=== PATIENT | female | born 1950 | race Caucasian/White ===

== ENCOUNTER 2019-02-14 05:42 | Outpatient (CLI) | payer MEDICARE ==
[~2019-02-14] VITALS: Ht 157.5 cm; Wt 67.6 kg
[2019-02-14] MEDS ORDERED: ALPR0.5T PO (10:05)
[2019-02-14] MEDS ORDERED: ESTR42.52 VG (10:05)
== END 2019-02-14 10:18 | disposition home or self-care (01) ==
LOC: PREOP 05:42
PROVIDERS: ATTEND Obstetrics & Gynecology
DX: Z01.818 Encounter for other preprocedural examination (principal)

== ENCOUNTER 2019-02-17 06:08 | Day surgery (SDC) | payer MEDICARE ==
[~2019-02-17] VITALS: Ht 157.5 cm; Wt 67.6 kg
[~2019-02-17 06:08] MED LIST: ALPR0.5T PO; ESTR42.52 VG
[2019-02-17] MEDS ORDERED: LACTATED RINGERS 1,000 ML IV ONE (06:10)
[2019-02-17] MEDS ORDERED: metroNIDAZOLE 500MG/100ML IVPB 100 ML IV ONE (06:15)
[2019-02-17] MEDS ORDERED: ceFAZolin INJECTION 1,000 MG in WATER (STERILE) FOR INJECTION 10 ML IV ONE (06:15)
[2019-02-17] MEDS ORDERED: BUPIVACAINE 0.25% 30 ML (SENSORCAINE) VIAL ONE (06:29)
[2019-02-17] MEDS ORDERED: NS (IVPB) 100 ML ONE (06:29)
[2019-02-17] MEDS ORDERED: ESTROGENS CONJ. CREAM 30 GM (PREMARIN) TUBE ONE (06:29)
[2019-02-17] MEDS ORDERED: VASOPRESSIN INJECTION 20 UNIT/ML VIAL ONE (06:29)
[2019-02-17 06:30] VITALS: BP 135/61
[2019-02-17] MEDS ORDERED: ONDANSETRON 4 MG/2 ML (SDV) Z0FRAN ONE ×2 (06:42→06:52)
[2019-02-17] MEDS ORDERED: FAMOTIDINE 20MG/2ML IV (PEPCID) ONE (06:43)
[2019-02-17] MEDS ORDERED: ONDANSETRON 4 MG/2 ML (SDV) Z0FRAN IV ONE (06:45)
[2019-02-17] MEDS ORDERED: FAMOTIDINE 20MG/2ML IV (PEPCID) IV ONE (06:45)
[2019-02-17] MEDS ORDERED: ROCURONIUM 10 MG/ML 5 ML SYRINGE IV ONE (06:52)
[2019-02-17] MEDS ORDERED: fentaNYL INJECTION 100 MCG/2 ML AMP ONE (06:52)
[2019-02-17] MEDS ORDERED: proPOfol 200 MG/20 ML (DIPRIVAN) VIAL IV ONE (06:52)
[2019-02-17] MEDS ORDERED: DEXAMETHASONE 10 MG/ML (DECADRON) 1 ML VIAL ONE (06:52)
[2019-02-17] MEDS ORDERED: LIDOCAINE PF 2% 5 ML (XYLOCAINE) VIAL ONE (06:52)
[2019-02-17] MEDS ORDERED: SEVOFLURANE (ULTANE) 15 ML INHAL SOLN ONE ×9 (06:52→09:15)
[2019-02-17] MEDS ORDERED: MIDAZOLAM 2 MG/2 ML (VERSED) VIAL ONE (06:52)
[2019-02-17 07:01] LABS: BASOPHILS % (AUTO) 0 % (0-10); EOSINOPHILS # (AUTO) 0.1 10^3/uL (0.0-0.3); EOSINOPHILS % (AUTO) 1 % (0-10); HEMATOCRIT 39 % (35-52); LYMPHOCYTES # (AUTO) 1.3 X 10^3 (1.0-4.0); LYMPHOCYTES % (AUTO) 15 % (12-44); MEAN CORPUSCULAR HEMOGLOBIN 32 PG (25-34); MEAN CORPUSCULAR HGB CONC 36 G/DL (32-36); MEAN CORPUSCULAR VOLUME 90 FL (80-99); MEAN PLATELET VOLUME 10.2 FL (7.4-10.4); MONOCYTES # (AUTO) 0.5 X 10^3 (0.0-1.0); MONOCYTES % (AUTO) 6 % (0-12); NEUTROPHILS # (AUTO) 6.9 X 10^3 (1.8-7.8); NEUTROPHILS % (AUTO) 78 % (42-75); PLATELET COUNT 269 10^3/uL (130-400); RED CELL DISTRIBUTION WIDTH 13.2 % (10.0-14.5); WHITE BLOOD COUNT 8.9 10^3/uL (4.3-11.0)
--- NOTE | 2019-02-17 07:08 | History & Physical-Surgical ---
HPO-Surgical History of Present Illness Chief Complaint: Bladder prolapse Diagnosis/Surgical Indication: POP, Cystocele grade 3 with uterine prolapse Procedure: RATLH w/ BSO Date of Surgery: Feb 17, 2019 Weight (Pounds): 149 Weight (Ounces): 0.0 Height (Feet): 5 Height (Inches): 2.00 Allergies and Home Medications Allergies Coded Allergies: amoxicillin (Verified Allergy, Unknown, HIVES, 02/14/19) Home Medications Alprazolam 0.5 Mg Tablet, 0.5 MG PO HS, (Reported) Estradiol 42.5 Gm Cream.appl, 1.25 GM VG TuThSa, (Reported) Patient Home Medication List Home Medication List Reviewed: Yes Past Kvsuhlt-Dczgto-Dyinub Hx Patient Social History Alcohol Use: Denies Use Smoking Status: Never a Smoker Recent Foreign Travel: No Contact w/other who traveled: No Recent Hopitalizations: No Seasonal Allergies Seasonal Allergies: Yes Surgeries Yes Respiratory No Cardiovascular No Neurological No Genitourinary Yes (cystocele) Gastrointestinal No Musculoskeletal No Endocrine History of Endocrine Disorders: No HEENT History of HEENT Disorders: No Cancer No Psychosocial History of Psychiatric Problem: Yes Behavioral Health Disorders: Anxiety Integumentary History of Skin or Integumenta: No Blood Transfusions History of Blood Disorders: No Family Medical History Family Hx: Cardiovascular disease 19 MOTHER Hypertension 19 MOTHER Exam Vital Signs Capillary Refill : Labs Laboratory Tests Test 02/17/19 06:55 Range/Units White Blood Count 8.9 4.3-11.0 10^3/uL Red Blood Count 4.33 L 4.35-5.85 10^6/uL Hemoglobin 14.0 11.5-16.0 G/DL Hematocrit 39 35-52 % Mean Corpuscular Volume 90 80-99 FL Mean Corpuscular Hemoglobin 32 25-34 PG Mean Corpuscular Hemoglobin Concent 36 32-36 G/DL Red Cell Distribution Width 13.2 10.0-14.5 % Platelet Count 269 130-400 10^3/uL Mean Platelet Volume 10.2 7.4-10.4 FL Neutrophils (%) (Auto) 78 H 42-75 % Lymphocytes (%) (Auto) 15 12-44 % Monocytes (%) (Auto) 6 0-12 % Eosinophils (%) (Auto) 1 0-10 % Basophils (%) (Auto) 0 0-10 % Neutrophils # (Auto) 6.9 1.8-7.8 X 10^3 Lymphocytes # (Auto) 1.3 1.0-4.0 X 10^3 Monocytes # (Auto) 0.5 0.0-1.0 X 10^3 Eosinophils # (Auto) 0.1 0.0-0.3 10^3/uL Basophils # (Auto) 0.0 0.0-0.1 10^3/uL General Appearance: Alert, Oriented X3 HEENT: Atraumatic Respiratory: Clear to Auscultation Cardiovascular: Regular Rate Abdominal: Normal Bowel Sounds Assessment/Plan Assessment and Plan P: RATLH w/ BSO anterior colporrhaphy Admission Diagnosis POP w/ Cystocele Admission Status: Observation ALVINO GRIFFITH DO Feb 17, 2019 07:08
[2019-02-17] MEDS ORDERED: LACTATED RINGERS 1,000 ML IV SCH (07:20)
[2019-02-17] MEDS: LACTATED RINGERS 1,000 ML IV PRN ×2 (07:27→11:43)
[2019-02-17] MEDS ORDERED: ANTACID SUSP 30 ML UDC (MYLANTA) PO PRN (07:30)
[2019-02-17] MEDS ORDERED: HYDROcodone/APAP 7.5 MG/325 MG (LORTAB, LORCET PLUS) TABLET PO PRN (07:30)
[2019-02-17] MEDS ORDERED: SIMETHICONE 80 MG (MYLICON) CHEW PO PRN (07:30)
[2019-02-17] MEDS ORDERED: ONDANSETRON 4 MG/2 ML (SDV) Z0FRAN IV PRN (07:30)
[2019-02-17] MEDS ORDERED: CHLORASEPTIC LOZENGE MM PRN (07:30)
[2019-02-17] MEDS ORDERED: KETOROLAC 30 MG/ML VIAL IV PRN (07:30)
[2019-02-17] MEDS ORDERED: ZOLPIDEM 5 MG (AMBIEN) TAB PO PRN (07:30)
[2019-02-17] MEDS ORDERED: GLYCOPYRROLATE 0.2 MG/ML (ROBINUL) 2 ML VIAL ONE (08:43)
[2019-02-17] MEDS ORDERED: NEOSTIGMINE 1 MG/ML 5 ML SYRINGE ONE (08:43)
[2019-02-17] MEDS ORDERED: morphine INJ 10 MG/ML 1ML (SYR OR VIAL) IVP ONE (09:45)
[2019-02-17] MEDS ORDERED: ONDANSETRON 4 MG/2 ML (SDV) Z0FRAN IVP PRN (09:45)
[2019-02-17] MEDS ORDERED: morphine INJ 10 MG/ML 1ML (SYR OR VIAL) ONE (09:55)
--- NOTE | 2019-02-17 10:30 | NUR ---
Pt transferred to room 305 via bed with PACU staff @ side. report received from Agnes Harris RN. care assumed of pt.
[2019-02-17 10:45] VITALS: BP 122/59
--- NOTE | 2019-02-17 10:45 | NUR ---
initial shift assessment completed, see interventions for further. abd lapsites x3 noted, covered with Band-Aids. vaginal packing in place. no bleeding noted on v-pad. SCD's to LE's. POC reviewed with pt and family members. denies pain @ time. will cont to monitor.
[2019-02-17 14:23] VITALS: BP 105/66
--- NOTE | 2019-02-17 14:23 | NUR ---
vs taken. denies c/o's @ time. remains @ side.
--- NOTE | 2019-02-17 15:54 | OPERATIVE REPORT ---
DATE OF SERVICE: 02/17/2019 PREOPERATIVE DIAGNOSES: A 69-year-old female with pelvic organ prolapse and a grade III to grade IV cystocele. POSTOPERATIVE DIAGNOSES: A 69-year-old female with pelvic organ prolapse and a grade III to grade IV cystocele. PROCEDURES: Robotic-assisted total laparoscopic hysterectomy with bilateral salpingo-oophorectomy and colposuspension of the vaginal cuff and anterior colporrhaphy. SURGEON: Markel Griffith DO. DRIER FEEDER: CHAD Cruz. ANESTHESIA: General endotracheal. ESTIMATED BLOOD LOSS: 50. URINE OUTPUT: 130 mL clear at the end of the procedure. FLUIDS: 1500 mL of lactate Ringer solution. FINDINGS: An age appropriate size uterus with normal appearing age appropriate atrophy, ovaries and bilateral normal appearing fallopian tubes with evidence of previous tubal ligation and a grade III to grade IV cystocele protruding from the vaginal introitus. SPECIMEN SENT: Uterus, bilateral fallopian tubes and ovaries. INDICATIONS FOR PROCEDURE: This is a 69-year-old female. The patient was counseled in my office for a bulge in the pelvis as well as possible "bladder falling" from her primary care provider. Upon evaluation in the office, there was noted uterine prolapse and grade III to grade IV cystocele. I discussed with the patient pessary placement versus surgical repair. The patient was opting for a more permanent solution and less maintenance in the surgical repair. Risks of the procedure were discussed with the patient in detail including the risks of bleeding, infection, damage to surrounding structures including, but not limited to bowel, bladder and her kidneys and possible need for reoperation, postoperative expectations, postoperative recovery timeframe, postoperative complications, risk from anesthesia and even . After everything was discussed with the patient in detail, consent was obtained in the preoperative area and the patient was taken to the operating room. OPERATIVE REPORT IN DETAIL: Once in the operating room, general anesthesia was found to be adequate. She was placed in the dorsal lithotomy position and prepped and draped in a normal sterile fashion. A timeout was performed. I then placed a Jett catheter using a sterile technique. A weighted speculum was inserted in to the patient's vagina. A right angle retractor was used to visualize the cervix, which was grasped at 12 o'clock position using a long Allis clamp. I then placed a 0 Vicryl suture to the anterior lip of the cervix and removed the Allis clamp and used this as my retraction point. The uterine cavity depth was then sounded and found to be approximately 6 to 7 cm. I then selected a 5cm width and a 6 cm length Starr uterine manipulator tip and a 2.5 cm colpotomy ring. The Starr uterine manipulator tip was introduced into the uterine cavity, which the balloon was deployed and the colpotomy ring was advanced around the cervix. After this, I was able to appreciate excellent bimanual manipulation on bimanual exam using the manipulator. I then removed all the other instruments from the patient's vagina. I performed the change of gloves and took my attention to the abdomen where infraumbilically I infiltrated this area using 0.25% Marcaine. I made an 8 mm incision and directed a Veress needle through the incision until intraperitoneal placement was confirmed using a saline drop test. I then proceeded with insufflation using CO2 gas with an opening pressure of 5 mmHg as noted. I then proceeded to max pressure of 15 mmHg at which point I withdrew the Veress needle and introduced an 8 mm blunt da Antoni camera trocar. Once this was in place, I was able to confirm intraperitoneal placement using da Antoni laparoscope. No evidence of damage upon entry and grossly normal upper abdominal anatomy was noted. I then had the patient placed in steep Trendelenburg where I was able to visualize all the pelvic anatomy as described in my findings above. I placed two lateral trocars approximately 8 cm lateral to my infraumbilical trocar. These were both 8 mm trocar sites. Once these were in place and the trocars were placed under direct visualization of the laparoscope by bringing the da Antoni robot and docked in the appropriate fashion, I placed the vessel sealer in the left hand and monopolar satya in the right hand and performed the following dissection bilaterally. Starting at the infundibulopelvic ligament, I bipolar cauterized and transected this using the da Antoni vessel sealer. I took this to the attachment point of the round ligament to the pelvic sidewall and bipolar cauterized and transected using the vessel sealer. I then took this down to the lower uterine segment down the broad ligament until the lower uterine segment of the uterus was encountered at which point I the anterior and posterior leaflets. Anterior leaflet was taken down to the anterior vaginal fornix. The posterior leaflet was taken down the posterior vaginal fornix. I then created a colpotomy at 12 o'clock position. Using the monopolar satya, I was able to visualize the colpotomy ring on the Starr uterine manipulator. I also skeletonized the uterine vessels laterally, which I then bipolar cauterized and transected using the vessel sealer. I then took my colpotomy incision circumferentially around the cervix amputating the cervix away from the vagina. The cervix, uterus and bilateral fallopian tubes and ovaries were then removed through the vagina. I then closed the vaginal cuff and the lateral vaginal apices colposuspending into the uterosacral ligaments using 2-0 Vicryl suture in a [id number]-picbo fashion. I then closed the remainder of the vaginal cuff using 2-0 V-Loc in a running fashion after which there was no active bleeding noted from any of my dissection planes. I then undocked the [employer] Antoni robot and proceeded with the remainder of the case laparoscopically. I copiously irrigated the pelvis once again using normal saline. There was no active bleeding noted from any of my dissection planes. I placed Surgiflo over all my planes of dissection to ensure excellent postoperative hemostasis. I then removed the lateral trocars under direct visualization of laparoscope. The infraumbilical trocar was left in place. I introduced 10 mL of 0.25% Marcaine for postoperative peritoneal pain management. I then released insufflation from this trocar site as well and removed this trocar. The skin was then reapproximated using a 4-0 Monocryl interrupted subcuticular stitches. Dermabond was applied to the incision and Band-Aids were placed over these. I then took my attention back to the pelvis where a weighted speculum was inserted in to the patient's vagina where I was able to visualize the continuing defect of a grade I to grade II cystocele, which still needs to be repaired. I infiltrated the submucosa of the vaginal wall of the anterior defect using vasopressin concentration of 20 units in a 100 mL of normal saline both for hydrodissection and for hemostasis during my dissection. Once all extents of the defect were infiltrated and there was blanching of the mucosa, I made a transverse incision at the bladder neck using the knife and undermined this incision using Metzenbaum scissors down the midline of the defect. I then incised the midline of the defect down this undermined incision all the way to the proximal margin of the defect at the vaginal cuff. I then bluntly dissected the vesicovaginal fascia off of the submucosa on both sides of my incision. I then in a plicating manner used 0 Vicryl suture to plicate the vesicovaginal fascia reducing the cystocele defect in an interrupted fashion, after which I trimmed the excess vaginal mucosa and reapproximated the vaginal mucosa using 3-0 Vicryl suture in a running locked fashion, after which there was no active bleeding noted from any of my dissection planes. I then packed the vagina using Premarin soaked vaginal packing and removed the weighted speculum. The Jett catheter was left in place. The patient tolerated the procedure well and sent to the recovery area in stable condition. Lap and sponge counts were correct at the end of the procedure. Instrument counts correct as well. Two grams of Ancef and 500 mg of Flagyl were given preoperatively for infection prophylaxis. Job ID: [id number] DocumentID: [id number] Dictated Date: 02/17/2019 10:34:11 Shallot Packer Date: 02/17/2019 15:53:39 Dictated By: MARKEL GRIFFITH DO
--- NOTE | 2019-02-17 16:35 | NUR ---
ambulated in hallway with stand by assist x1. tolerated well. assisted back to bed.
--- NOTE | 2019-02-17 16:45 | NUR ---
regular diet served.
--- NOTE | 2019-02-17 16:59 | NUR ---
called. update given on status. no new orders received.
--- NOTE | 2019-02-17 17:02 | Discharge Inst-Women's Service ---
Discharge Inst-Women's Serv Depart Medication/Instructions New, Converted or Re-Newed RX: RX on Chart Consults/Follow Up Additional Follow Up: Yes Orders/Referrals Dr. Gee in 7-10 days and in 8 weeks Activity Activity: Activity as Tolerated Driving Instructions: No Driving for 1 Week NO SMOKING: NO SMOKING Nothing Inside Vagina: No Douching, No Clare, No Tampons Diet Discharge Diet: No Restrictions Symptoms to Report to : Bleeding Excessive, Pain Increased, Fever Over 101 Degrees F, Vaginal Bleeding Increase, Questions/Concerns For Any Problems or Questions: Contact Your Physician Skin/Wound Care Infection Signs and Symptoms: Increased Redness, Foul Odor of Wound, Increased Drainage, Skin Itchy or Has a Rash, Increased Swelling, Temperature Above 101 F Operative Area Clean and Dry: Keep Incision Clean/Dry Stitches/Andreas/Dermabond: Dermabond, Care of Stitches Bathing Instructions: ALVINO Nelson DO Feb 17, 2019 17:02
--- NOTE | 2019-02-17 19:49 | NUR ---
Report given to INDRA Ferrell.
[2019-02-17] MEDS: DOCUSATE SODIUM 100 MG (COLACE) CAP PO PRN (20:04)
[2019-02-17 20:08] VITALS: BP 102/51
[2019-02-17 23:00] VITALS: BP 90/56
[2019-02-18] MEDS ORDERED: IBUPROFEN 600 MG (MOTRIN) TAB PO PRN
[2019-02-18 04:00] VITALS: BP 94/61
--- NOTE | 2019-02-18 07:26 | NUR ---
Report to burak gonzalez
[2019-02-18 08:00] VITALS: BP 115/55
--- NOTE | 2019-02-18 08:00 | NUR ---
A.M. ASSESSMENT COMPLETED.UP TO VOID. VOIDED 125 CC CLEAR YELLOW URINE.OUT TO AMBULATE IN THE HALLS. MOVES WELL.
--- NOTE | 2019-02-18 09:30 | NUR ---
VOIDED 300 CC CLEAR YELLOW URINE. DOING WELL. ANXIOUS TO GO HOME.
[2019-02-18] MEDS: DOCUSATE SODIUM 100 MG (COLACE) CAP PO PRN (09:44)
--- NOTE | 2019-02-18 09:49 | NUR ---
DR. GRIFFITH IN TO SEE PT. PLAN FOR DISCHARGE.
--- NOTE | 2019-02-18 10:00 | NUR ---
SALINE LOCK D/C'ED WITH TIP INTACT. SITE CLEAR. PREPARING FOR DISCHARGE.
[2019-02-18] MEDS ORDERED: SIME80TA16 PO (10:03)
[2019-02-18] MEDS ORDERED: DOCU100C37 PO (10:03)
[2019-02-18] MEDS ORDERED: IBUP-844 PO (10:03)
[2019-02-18] MEDS ORDERED: HYDR-34 PO (10:03)
--- NOTE | 2019-02-18 10:10 | Anesthesia-General Post-Op ---
General Patient Condition Mental Status/LOC: Same as Preop Cardiovascular: Satisfactory Nausea/Vomiting: Absent Respiratory: Satisfactory Pain: Controlled Complications: Absent Post Op Complications Complications None Follow Up Care/Instructions Patient Instructions None needed. Anesthesia/Patient Condition Patient Condition Patient is doing well, no complaints, stable vital signs, no apparent adverse anesthesia problems. No complications reported per nursing. ROB DUMONT CRNA Feb 18, 2019 10:10
[2019-02-18 10:30] VITALS: BP 115/55
--- NOTE | 2019-02-18 10:30 | NUR ---
DISCHARGE INSTRUCTIONS REVIEWED WITH COPY TO PT. STATES UNDERSTANDING OF ALL INSTRUCTIONS AND NEED TO F/U SCHEDULED AND NEEDED. DISMISSED AMB FROM [facility] TO FAMILY CAR IN STABLE CONDITION ACC BY LANA BURRELL.
[2019-02-18] MEDS ORDERED: FLU QUADRIvalent (5+ YOA) 2018-2019 (AFLURIA) 0.5 ML IM ONE (15:15)
== END 2019-02-18 10:30 | disposition home or self-care (01) ==
LOC: SDC 06:08 → WS 10:30 → SDC 02-18 10:30
PROVIDERS: ATTEND Obstetrics & Gynecology
DX: N81.3 Complete uterovaginal prolapse (principal); N80.0 Endometriosis of uterus; D25.1 Intramural leiomyoma of uterus; N83.201 Unspecified ovarian cyst, right side; N83.202 Unspecified ovarian cyst, left side; F41.9 Anxiety disorder, unspecified; Z79.899 Other long term (current) drug therapy
CPT/HCPCS: 36415; 85025; 86850; 86900; 86901; 87081; 88307

== ENCOUNTER 2022-03-09 14:13 | Inpatient (IN) | payer MEDICARE ==
[~2022-03-09] VITALS: Ht 160 cm; Wt 68.0 kg
[~2022-03-09 14:13] MED LIST changes: +DOCU100C37 PO; +HYDR-34 PO; +IBUP-844 PO; +SIME80TA16 PO
--- NOTE | 2022-03-09 14:35 | ED Lower Extremity ---
General Chief Complaint: Trauma-Non Activation Stated Complaint: FALL; LT HIP PAIN Nursing Triage Note: Patient presents to the ED via EMS with c/o left hip pain. Reports her feet got tangled in some cords and she fell onto her left him. EMS reported external rotation and shortening of left leg. Source: patient Exam Limitations: no limitations History of Present Illness Date Seen by Provider: Mar 09, 2022 Time Seen by Provider: 14:15 Initial Comments Patient is 72-year-old female who presents with accidental fall from standing and left hip pain. Patient did not hit her head. Denies loss of consciousness, headache or neck pain. She is not on anticoagulation therapy. Patient is unable to weight-bear. No other symptoms or complaints. Location Injury Occurred: Home Onset: just prior to arrival Severity: moderate Method of Injury: other Modifying Factors: Improves With Other Allergies and Home Medications Allergies Coded Allergies: amoxicillin (Verified Allergy, Unknown, HIVES, 02/14/19) Patient Home Medication List Home Medication List Reviewed: Yes Alprazolam (Xanax) 0.5 Mg Tablet, 0.5 MG PO HS, (Reported) Entered as Reported by: FORREST PALACIOS on 02/14/19 1005 Docusate Sodium (Docusate Sodium) 100 Mg Capsule, 100 MG PO BID PRN for CONSTIPATION-1ST LINE Prescribed by: ALVINO GRIFFITH on 02/18/19 1003 Estradiol (Estrace Cream) 42.5 Gm Cream.appl, 1.25 GM VG TuThSa, (Reported) Entered as Reported by: FORREST PALACIOS on 02/14/19 1005 Hydrocodone Bit/Acetaminophen (Lortab 7.5 Mg Tablet) 1 Ea Tablet, 2 EA PO Q6H PRN for Pain-See Instructions Prescribed by: ALVINO GRIFFITH on 02/18/19 1003 Ibuprofen (Ibu) 600 Mg Tablet, 600 MG PO Q6H PRN for PAIN-MODERATE Prescribed by: ALVINO GRIFFITH on 02/18/19 1003 Simethicone (Simethicone) 80 Mg Tab.chew, 40 MG PO TID PRN for INDIGESTION 2ND LINE Prescribed by: ALVINO GRIFFITH on 02/18/19 1003 Review of Systems Constitutional: see HPI EENTM: see HPI Respiratory: see HPI Cardiovascular: see HPI Genitourinary: see HPI Musculoskeletal: see HPI Skin: see HPI Psychiatric/Neurological: See HPI All Other Systems Reviewed Negative Unless Noted: Yes Past Prwadyq-Wgylni-Xjlcak Hx Patient Social History Tobacco Use?: No Substance use?: No Alcohol Use?: No Pt feels they are or have been: No Immunizations Up To Date Influenza Vaccine Up-to-Date: No; Not Current First/Initial COVID19 Vaccinat: Yes Second COVID19 Vaccination Ajay: Yes COVID19 Vaccine Rehabilitation Liaison: Moderna Seasonal Allergies Seasonal Allergies: Yes Past Medical History Surgery/Hospitalization HX: Anxiety; Depression; Cholecysectomy; Hysterectomy; bladder tie up. Surgeries: Yes Respiratory: No Cardiac: No Neurological: No Genitourinary: Yes (cystocele) Gastrointestinal: No Musculoskeletal: No Endocrine: No HEENT: No Cancer: No Psychosocial: Yes Anxiety Integumentary: No Blood Disorders: No Family Medical History Cardiovascular disease 19 MOTHER Hypertension 19 MOTHER Physical Exam Vital Signs Vital Signs - First Documented 03/09/22 14:15 Temp 36.4 Pulse 96 Resp 18 B/P (MAP) 117/50 (72) Pulse Ox 96 O2 Delivery Room Air Capillary Refill : Less Than 3 Seconds Height, Weight, BMI Height: 5'2.00" Weight: 149lbs. 0.0oz. 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, no motor/sensory deficits, alert, normal mood/affect, oriented x 3 Skin: normal color Lymphatic: no adenopathy Progress/Results/Core Measures Results/Orders Lab Results Laboratory Tests Test 03/09/22 15:00 03/09/22 15:25 Range/Units White Blood Count 20.2 H 4.3-11.0 10^3/uL Red Blood Count 4.21 3.80-5.11 10^6/uL Hemoglobin 13.5 11.5-16.0 g/dL Hematocrit 38 35-52 % Mean Corpuscular Volume 90 80-99 fL Mean Corpuscular Hemoglobin 32 25-34 pg Mean Corpuscular Hemoglobin Concent 36 32-36 g/dL Red Cell Distribution Width 13.1 10.0-14.5 % Platelet Count 174 130-400 10^3/uL Mean Platelet Volume 10.9 9.0-12.2 fL Immature Granulocyte % (Auto) 1 % Neutrophils (%) (Auto) 87 H 42-75 % Lymphocytes (%) (Auto) 7 L 12-44 % Monocytes (%) (Auto) 4 0-12 % Eosinophils (%) (Auto) 0 0-10 % Basophils (%) (Auto) 0 0-10 % Neutrophils # (Auto) 17.6 H 1.8-7.8 10^3/uL Lymphocytes # (Auto) 1.4 1.0-4.0 10^3/uL Monocytes # (Auto) 0.9 0.0-1.0 10^3/uL Eosinophils # (Auto) 0.1 0.0-0.3 10^3/uL Basophils # (Auto) 0.1 0.0-0.1 10^3/uL Immature Granulocyte # (Auto) 0.2 H 0.0-0.1 10^3/uL My Orders Orders - NADEGE YAN DO Pelvis With Left Hip 2-3 View (03/09/22 14:18) Chest 1 View Ap/Pa Only (03/09/22 14:18) Cbc With Automated Diff (03/09/22 14:18) Comprehensive Metabolic Panel (03/09/22 14:18) Ua Culture If Indicated (03/09/22 14:18) Manual Differential (03/09/22 15:00) Morphine Injection (Morphine Injection (03/09/22 15:31) Ondansetron Injection (Zofran Injectio (03/09/22 15:45) Vital Signs/I&O 03/09/22 14:15 Temp 36.4 Pulse 96 Resp 18 B/P (MAP) 117/50 (72) Pulse Ox 96 O2 Delivery Room Air Blood Pressure Mean: 72 Departure Communication (Admissions) Left hip/pelvis: Left subcapital fracture Chest x-ray: No acute pulmonary disease Impression Primary Impression: Closed left hip fracture Disposition: ADMITTED INPATIENT Condition: Stable Admissions Decision to Admit Reason: Admit from ER (General) (Dr. Finch) Decision to Admit/Date: Mar 09, 2022 Time/Decision to Admit Time: 15:33 Transfer Method of Transfer: EMS Departure-Patient Inst. Referrals: MALENA MCDANIEL MD (PCP) Primary Care Physician NADEGE YAN DO Mar 09, 2022 14:35
--- NOTE | 2022-03-09 14:54 | Diagnostic Imaging Report ---
EXAM: PELVIS WITH LEFT HIP 2-3 VIEW INDICATION: Left hip pain. Trauma. Fall. COMPARISON: None. FINDINGS: Angulated displaced left subcapital hip fracture. No other fracture is identified. Soft tissue shadows are unremarkable. IMPRESSION: Subcapital left hip fracture. Dictated by: Dictated on workstation # [id number]
--- NOTE | 2022-03-09 14:54 | Diagnostic Imaging Report ---
EXAM: CHEST 1 VIEW AP/PA ONLY INDICATION: Trauma. Fall. Chest pain. COMPARISON: None. FINDINGS: Normal heart size and central pulmonary vascularity. No focal pulmonary opacity. No pleural effusion or pneumothorax. No acute osseous findings. Metallic irregular density overlying the upper right lung field laterally measures 0.5 cm. IMPRESSION: 1. No acute cardiopulmonary findings. 2. Indeterminate metallic subcentimeter radiopaque density overlying the upper right lung field laterally may be external to the patient. Recommend correlation with clinical history and findings. Dictated by: Dictated on workstation # [id number]
[2022-03-09 15:00] LABS: BASOPHILS # (AUTO) 0.1 10^3/uL (0.0-0.1); BASOPHILS % (AUTO) 0 % (0-10); EOSINOPHILS # (AUTO) 0.1 10^3/uL (0.0-0.3); EOSINOPHILS % (AUTO) 0 % (0-10); HEMATOCRIT 38 % (35-52); HEMOGLOBIN 13.5 g/dL (11.5-16.0); LYMPHOCYTES # (AUTO) 1.4 10^3/uL (1.0-4.0); LYMPHOCYTES % (AUTO) 7 % (12-44); MEAN CORPUSCULAR HEMOGLOBIN 32 pg (25-34); MEAN CORPUSCULAR HGB CONC 36 g/dL (32-36); MEAN CORPUSCULAR VOLUME 90 fL (80-99); MEAN PLATELET VOLUME 10.9 fL (9.0-12.2); MONOCYTES # (AUTO) 0.9 10^3/uL (0.0-1.0); MONOCYTES % (AUTO) 4 % (0-12); NEUTROPHILS # (AUTO) 17.6 10^3/uL (1.8-7.8); NEUTROPHILS % (AUTO) 87 % (42-75); PLATELET COUNT 174 10^3/uL (130-400); WHITE BLOOD COUNT 20.2 10^3/uL (4.3-11.0)
[2022-03-09] MEDS ORDERED: morphine INJ 10 MG/ML 1ML (SYR OR VIAL) IVP STA (15:31)
[2022-03-09 15:41] LABS: LYMPHOCYTES % (MANUAL) 7 %; MONOCYTES % (MANUAL) 3 %; NEUTROPHILS % (MANUAL) 90 %
[2022-03-09] MEDS ORDERED: ONDANSETRON 4 MG/2 ML (SDV) Z0FRAN IVP ONE (15:45)
[2022-03-09 15:51] LABS: ALBUMIN 3.7 GM/DL (3.2-4.5); BILIRUBIN,TOTAL 0.4 MG/DL (0.1-1.0); CALCIUM 7.5 MG/DL (8.5-10.1); CREATININE SERUM 0.47 MG/DL (0.60-1.30); POTASSIUM 2.9 MMOL/L (3.6-5.0); TOTAL PROTEIN 5.7 GM/DL (6.4-8.2)
[2022-03-09 15:55] LABS: BILIRUBIN,URINE NEGATIVE (NEGATIVE); CLARITY,URINE CLEAR; COLOR,URINE YELLOW; GLUCOSE, URINE (UA) NEGATIVE (NEGATIVE); KETONES,URINE NEGATIVE (NEGATIVE); LEUKOCYTE ESTERASE ,URINE NEGATIVE (NEGATIVE); NITRITE,URINE NEGATIVE (NEGATIVE); PROTEIN,URINE NEGATIVE (NEGATIVE)
[2022-03-09 16:03] LABS: BACTERIA,URINE TRACE /HPF; RED BLOOD CELL CASTS,URINE 0-2 /LPF
[2022-03-09] MEDS ORDERED: KCL 20 MEQ TAB (K-DUR) PO ONE ×2 (16:15→21:15)
[2022-03-09 17:12] VITALS: BP 127/68
[2022-03-09] MEDS ORDERED: polyethylene glycoL POWDER 17 GM (MIRALAX) PACK PO PRN (17:45)
[2022-03-09] MEDS ORDERED: ONDANSETRON 4 MG (ZOFRAN) ORAL DISSOLVE TAB PO PRN (17:45)
[2022-03-09] MEDS ORDERED: ONDANSETRON 4 MG/2 ML (SDV) Z0FRAN IV PRN (17:45)
[2022-03-09] MEDS ORDERED: ANTACID SUSP 30 ML UDC (MYLANTA) PO PRN (17:45)
[2022-03-09] MEDS ORDERED: ACETAMINOPHEN 325 MG TABLET PO PRN (17:45)
[2022-03-09] MEDS ORDERED: MELATONIN 3 MG TABLET PO PRN (17:45)
[2022-03-09] MEDS: LACTATED RINGERS 1,000 ML IV SCH (17:50)
[2022-03-09 18:09] VITALS: BP 117/50
[2022-03-09] MEDS ORDERED: RT-ALBUTEROL SULF 2.5 MG/3 ML PRE-MIX VIAL INH PRN (18:15)
[2022-03-09] MEDS ORDERED: D5 1/2 NS 1000 ML IV SOLUTION 1,000 ML IV SCH (18:15)
[2022-03-09] MEDS ORDERED: morphine INJ 4 MG/ML 1 ML (VIAL/SYRINGE) IV PRN (18:15)
[2022-03-09 18:16] LABS: POTASSIUM 3.9 MMOL/L (3.6-5.0)
[2022-03-09 18:17] LABS: CALCIUM 9.1 MG/DL (8.5-10.1)
[2022-03-09 18:22] LABS: CREATININE SERUM 0.67 MG/DL (0.60-1.30)
[2022-03-09 18:24] LABS: MAGNESIUM 1.8 MG/DL (1.6-2.4)
--- NOTE | 2022-03-09 19:08 | Progress Note ---
Standard Progress Note Progress Notes/Assess & Plan Date Seen by a Provider: Mar 09, 2022 Time Seen by a Provider: 19:07 Progress/Assessment & Plan consult dictated patient seen and examined plan for left hip bipolar replacement tomorrow ALVINO NORRIS MD Mar 09, 2022 19:08
--- NOTE | 2022-03-09 19:46 | History & Physical-Hospitalist ---
History of Present Illness HPI/Chief Complaint Livia Chandra is a 72 year old female with PMH anxiety, insomnia, who presented after a ground level fall. She tripped over some cords and fell on her left side. She did not hit her head or lose consciousness. She was in her normal state of health prior to the fall. She denies fevers and chills. She denies chest pain and palpitaitons. She denies shortness of breath and cough. She denies abdominal pain, nausea, vomiting, and diarrhea. She denies dysuria. She is a non-smoker. Source: patient Exam Limitations: no limitations Date Seen 03/09/22 Time Seen by a Provider: 18:00 Attending Physician Jordana Herr MD PCP Breana Cruz MD Referring Physician Date of Admission Mar 09, 2022 at 17:10 Home Medications & Allergies Home Medications Reviewed patient Home Medication Reconciliation performed by pharmacy medication reconciliations x ray technician and/or nursing. Patients Allergies have been reviewed. Allergies Allergies Coded Allergies amoxicillin (Verified Allergy, Unknown, HIVES, 02/14/19) Past Wleggnq-Ocklpf-Uxyuvw Hx Patient Social History Tobacco Use?: No Smoking Status: Never a Smoker Use of E-Cig and/or Vaping dev: No Substance use?: No Alcohol Use?: No Pt feels they are or have been: No Immunizations Up To Date First/Initial COVID19 Vaccinat: Yes Second COVID19 Vaccination Ajay: Yes Tetanus Booster (TDap): Unknown Seasonal Allergies Seasonal Allergies: Yes Current Status status: No status: No Advance Directives: No Primary Language: Turkish Preferred Spoken Language: Turkish Is interpretation needed?: No Implanted or Applied Medical D: None Past Medical History Anxiety Blood Disorders: No Family Medical History Cardiovascular disease 19 MOTHER Hypertension 19 MOTHER Review of Systems Constitutional: no symptoms reported EENTM: no symptoms reported Respiratory: no symptoms reported Cardiovascular: no symptoms reported Gastrointestinal: no symptoms reported Genitourinary: no symptoms reported Musculoskeletal: no symptoms reported Skin: no symptoms reported Psychiatric/Neurological: No Symptoms Reported Physical Exam Physical Exam Vital Signs Vital Signs - First Documented 03/09/22 03/09/22 03/09/22 14:15 17:12 18:09 Temp 36.4 Pulse 96 Resp 18 B/P (MAP) 117/50 (72) Pulse Ox 96 O2 Delivery Room Air O2 Flow Rate 2.00 FiO2 21 Capillary Refill : Less Than 3 Seconds Height, Weight, BMI Height: 5'2.00" Weight: 149lbs. 0.0oz. 67.429606ac; 26.71 BMI Method: General Appearance: No Apparent Distress, WD/WN HEENT: PERRL/EOMI, Pharynx Normal Neck: Normal Inspection, Supple Respiratory: Lungs Clear, Normal Breath Sounds, No Respiratory Distress Cardiovascular: Regular Rate, Rhythm, No Edema, No Murmur Gastrointestinal: Normal Bowel Sounds, Non Tender, Soft Extremity: Normal Inspection, Non Tender, No Pedal Edema Neurologic/Psychiatric: Alert, Oriented x3, No Motor/Sensory Deficits, Normal Mood/Affect Skin: Normal Color, Warm/Dry Results Results/Procedures Labs Laboratory Tests 03/09/22 15:00 03/09/22 15:25 03/09/22 18:00 Patient resulted labs reviewed. Imaging: Reviewed Imaging Report Assessment/Plan Admission Diagnosis Closed left hip fracture Admission Status: Inpatient Order (span 2 midnights) Reason for Inpatient Admission: Hip surgery Assessment and Plan Closed left hip fracture XR showed left subcapital hip fracture Orthopedic surgery consulted Dr. Chisholm planning for surgical repair tomorrow NPO at midnight Pain regimen Bowel regimen Incentive spriometry PT/OT after surgery IRF evaluation Prophylactic Lovenox Anxiety Insomnia Continue Klonopiin Hypokalemia Monitor and correct as needed DVT prophylaxis: Lovenox Diagnosis/Problems Diagnosis/Problems (1) Closed left hip fracture Status: Acute Qualifiers: Encounter type: initial encounter Qualified Codes: S72.002A - Fracture of unspecified part of neck of left femur, initial encounter for closed fracture JORDANA HERR MD Mar 09, 2022 19:46
[2022-03-09 20:02] VITALS: BP 133/73
[2022-03-09] MEDS ORDERED: ENOXAPARIN 40 MG/0.4 ML (LOVENOX) SYR SC SCH (21:00)
[2022-03-09] MEDS: SENNA W/DOCUSATE (SENOKOT S) TABLET PO SCH (21:00)
[2022-03-09] MEDS: DOCUSATE SODIUM 100 MG (COLACE) CAP PO SCH (21:00)
[2022-03-09] MEDS: clonazePAM 0.5 MG (KlonoPIN) TAB PO SCH (21:16)
--- NOTE | 2022-03-09 22:41 | CONSULTATION REPORT ---
DATE OF SERVICE: 03/09/2022 INPATIENT CONSULTATION REASON FOR CONSULTATION: Left femoral neck fracture. HISTORY OF PRESENT ILLNESS: The patient is a 72-year-old female, who fell after getting tangled up on her computer cords while standing from her desk. She denies antecedent pain. She reports no loss of consciousness. She reports no dizziness or chest pain. She reports she simply clumsily got caught up in the wires. She was found to have a displaced femoral neck fracture at an outside facility and referred here for ultimate treatment. ALLERGIES: AMOXICILLIN, WHICH CAUSES HIVES. MEDICATIONS: Alprazolam, stool softener, estradiol, calcium, vitamin D. PHYSICAL EXAMINATION: ORTHOPEDICS: The left lower extremity is slightly shortened and externally rotated. She has intact dorsiflexion and plantarflexion of the toes and ankle. Sensation is symmetric to light touch and intact. She has 2+ equal dorsalis pedis pulses. RADIOGRAPHS: Reveal a subcapital left femoral neck fracture with 100% displacement with shortening. IMPRESSION: Displaced left subcapital femoral neck fracture. PLAN: Left hip bipolar replacement. I discussed risks, benefits, options, ramifications and recovery with the patient. She understands and wishes to proceed. Job ID: [id number] DocumentID: [id number] Dictated Date: 03/09/2022 19:06:56 [facility] Director Date: 03/09/2022 22:40:05 Dictated By: ALVINO NORRIS MD
[2022-03-10] VITALS (14 sets, daily range): BP systolic 93–121; BP diastolic 46–77
[2022-03-10] MEDS: LACTATED RINGERS 1,000 ML IV SCH ×3 (05:11→20:28)
[2022-03-10] MEDS: KCL 20 MEQ TAB (K-DUR) PO SCH (06:00)
[2022-03-10] MEDS: MAGNESIUM 1 GM/100 ML IVPB 100 ML IV SCH (06:00)
[2022-03-10] MEDS: POTASSIUM CL 10MEQ/50ML IVPB 50 ML IV SCH (06:00)
[2022-03-10 06:04] LABS: BASOPHILS % (AUTO) 0 % (0-10); EOSINOPHILS # (AUTO) 0.2 10^3/uL (0.0-0.3); EOSINOPHILS % (AUTO) 2 % (0-10); HEMATOCRIT 37 % (35-52); HEMOGLOBIN 12.4 g/dL (11.5-16.0); LYMPHOCYTES # (AUTO) 1.3 10^3/uL (1.0-4.0); LYMPHOCYTES % (AUTO) 13 % (12-44); MEAN CORPUSCULAR HEMOGLOBIN 32 pg (25-34); MEAN CORPUSCULAR HGB CONC 33 g/dL (32-36); MEAN CORPUSCULAR VOLUME 95 fL (80-99); MEAN PLATELET VOLUME 10.5 fL (9.0-12.2); MONOCYTES # (AUTO) 0.6 10^3/uL (0.0-1.0); MONOCYTES % (AUTO) 6 % (0-12); NEUTROPHILS # (AUTO) 7.6 10^3/uL (1.8-7.8); NEUTROPHILS % (AUTO) 78 % (42-75); PLATELET COUNT 186 10^3/uL (130-400); WHITE BLOOD COUNT 9.8 10^3/uL (4.3-11.0)
[2022-03-10 06:14] LABS: POTASSIUM 4.3 MMOL/L (3.6-5.0)
[2022-03-10 06:15] LABS: CALCIUM 8.7 MG/DL (8.5-10.1)
[2022-03-10 06:20] LABS: CREATININE SERUM 0.68 MG/DL (0.60-1.30)
[2022-03-10 06:22] LABS: MAGNESIUM 1.8 MG/DL (1.6-2.4)
[2022-03-10] MEDS: DOCUSATE SODIUM 100 MG (COLACE) CAP PO SCH ×2 (07:20→20:29)
[2022-03-10] MEDS: SENNA W/DOCUSATE (SENOKOT S) TABLET PO SCH (07:21)
--- NOTE | 2022-03-10 08:18 | Occ Therapy Progress Note ---
Therapy Progress Note OT orders received and chart was reviewed. Pt presents to hospital following a fall resulting in a L hip fx. Ortho consulted and recommends Left hip bipolar replacement. OT to eval post op day 1. Jes Toledo OT Mar 10, 2022 08:18
[2022-03-10] MEDS ORDERED: LACTATED RINGERS 1,000 ML IV PRN (09:30)
[2022-03-10] MEDS ORDERED: CLON0.5T4 PO (09:49)
[2022-03-10] MEDS ORDERED: L.AC1CAP6 PO (09:49)
[2022-03-10] MEDS ORDERED: CHOL500050 PO (09:53)
--- NOTE | 2022-03-10 09:54 | Physical Therapy Progress Note ---
Therapy Progress Note Patient to have surgery on this date. PT will evaluate patient 03/11/22. MARCELL MARINO PT Mar 10, 2022 09:54
[2022-03-10] MEDS ORDERED: BUPIVACAINE 0.5% 30 ML (SENSORCAINE) VIAL ONE (10:05)
[2022-03-10] MEDS ORDERED: FUROSEMIDE 40 MG/4 ML INJ (LASIX) ONE (10:31)
[2022-03-10] MEDS ORDERED: ceFAZolin 2 GM IV Premixed 50 ML ONE (10:38)
[2022-03-10] MEDS ORDERED: proPOfol 200 MG/20 ML (DIPRIVAN) VIAL IV ONE (10:51)
[2022-03-10] MEDS ORDERED: ROCURONIUM 10 MG/ML 5 ML SYRINGE IV ONE (10:51)
[2022-03-10] MEDS ORDERED: ONDANSETRON 4 MG/2 ML (SDV) Z0FRAN ONE (10:51)
[2022-03-10] MEDS ORDERED: LIDOCAINE PF 2% 5 ML (XYLOCAINE) VIAL ONE (10:51)
[2022-03-10] MEDS ORDERED: fentaNYL INJ 100 MCG/2 ML AMP ONE (10:51)
[2022-03-10] MEDS ORDERED: morphine INJ 4 MG/ML 1 ML (VIAL/SYRINGE) IVP PRN (11:15)
[2022-03-10] MEDS ORDERED: ONDANSETRON 4 MG/2 ML (SDV) Z0FRAN IVP PRN ×2 (11:15→13:00)
[2022-03-10] MEDS ORDERED: TEMAZEPAM 15 MG (RESTORIL) CAP PO PRN (11:15)
[2022-03-10] MEDS ORDERED: ceFAZolin 2 GM IV Premixed 50 ML IV ONE (11:15)
[2022-03-10] MEDS ORDERED: oxyCODONE/APAP 5/325MG (PERCOCET 5) TABLET PO PRN (11:15)
[2022-03-10] MEDS ORDERED: diphenhydrAMINE 50 MG/ML INJ (BENADRYL) IVP PRN (11:15)
[2022-03-10] MEDS ORDERED: ACETAMINOPHEN 325 MG TABLET PO PRN (11:15)
--- NOTE | 2022-03-10 11:16 | Progress Note-Pre Operative ---
Pre-Operative Progress Note H&P Reviewed The H&P was reviewed, patient examined and no changes noted. Date Seen by Provider: Mar 10, 2022 Time Seen by Provider: 11:06 Date H&P Reviewed: Mar 10, 2022 Time H&P Reviewed: 07:11 Pre-Operative Diagnosis: closed, displaced left neck of femur fracture ALVINO NORRIS MD Mar 10, 2022 11:16
--- NOTE | 2022-03-10 11:16 | Progress Note-Post Operative ---
Post-Operative Progess Note Surgeon (s)/Wind Turbine Design Engineer (s) Surgeon ALVINO NORRIS MD Wind Turbine Design Engineer: Dl Griffin Pre-Operative Diagnosis closed, displaced left neck of femur fracture Post-Operative Diagnosis closed, displaced left neck of femur fracture Procedure & Operative Findings Date of Procedure 03/10/22 Procedure Performed/Findings left hip bipolar replacement Anesthesia Type GETA Estimated Blood Loss Estimated blood loss (mL): 150 ml Specimens/Packing Specimens Removed Femoral head Packing: none ALVINO NORRIS MD Mar 10, 2022 11:16
--- NOTE | 2022-03-10 11:33 | Progress Note - Hospitalist ---
Subjective HPI/CC On Admission Date Seen by Provider: Mar 10, 2022 Time Seen by Provider: 10:05 Livia Chandra is a 72 year old female with PMH anxiety, insomnia, who presented after a ground level fall. She tripped over some cords and fell on her left side. She did not hit her head or lose consciousness. She was in her normal state of health prior to the fall. She denies fevers and chills. She denies chest pain and palpitaitons. She denies shortness of breath and cough. She denies abdominal pain, nausea, vomiting, and diarrhea. She denies dysuria. She is a non-smoker. Subjective/Events-last exam Pt reports persistent pain in hip. Pain medicine helps. Hopeful for surgery soon. Discussed plan for therapy following surgery. Objective Exam Vital Signs Vital Signs Date Time Temp Pulse Resp B/P (MAP) Pulse Ox O2 Delivery O2 Flow Rate FiO2 03/10/22 07:43 37.1 101 17 108/64 (79) 98 Nasal Cannula 2.00 03/09/22 18:09 21 Capillary Refill : Less Than 3 Seconds General Appearance: No Apparent Distress, WD/WN Respiratory: Lungs Clear, No Respiratory Distress Cardiovascular: Regular Rate, Rhythm, No Murmur Neurologic/Psychiatric: Alert, Oriented x3 Results/Procedures Lab Laboratory Tests 03/09/22 15:00 03/09/22 15:25 03/09/22 18:00 03/10/22 05:52 Patient resulted labs reviewed. Imaging: Reviewed Imaging Report Assessment/Plan Assessment and Plan Assess & Plan/Chief Complaint Closed left hip fracture XR showed left subcapital hip fracture Orthopedic surgery consulted Dr. Chisholm to take to OR today Pain regimen Bowel regimen Incentive spriometry PT/OT after surgery IRF evaluation post op Prophylactic Lovenox Anxiety Insomnia Continue home Klonopiin Hypokalemia Monitor and correct as needed, resolved DVT prophylaxis: DAYRON Conklin MD Mar 10, 2022 11:33
[2022-03-10] MEDS ORDERED: GLYCOPYRROLATE 0.2 MG/ML (ROBINUL) 2 ML VIAL ONE (12:12)
[2022-03-10] MEDS ORDERED: NEOSTIGMINE 3 MG/3 ML VIAL ONE (12:12)
[2022-03-10] MEDS ORDERED: BUPIVACAINE 0.25% 10 ML (SENSORCAINE) VIAL ONE (12:28)
[2022-03-10] MEDS ORDERED: SEVOFLURANE (ULTANE) 15 ML INHAL SOLN ONE (12:53)
[2022-03-10] MEDS ORDERED: MEPERIDINE (DEMEROL) INJ 50 MG/ML IVP ONE (13:00)
[2022-03-10] MEDS ORDERED: morphine INJ 10 MG/ML 1ML (SYR OR VIAL) IVP ONE (13:00)
[2022-03-10] MEDS ORDERED: morphine INJ 10 MG/ML 1ML (SYR OR VIAL) ONE (13:01)
--- NOTE | 2022-03-10 13:57 | Diagnostic Imaging Report ---
HIP, LEFT (SINGLE VIEW) INDICATION: Immediate postop surveillance after hip arthroplasty. COMPARISON: 03/09/2022. FINDINGS AND IMPRESSION: There has been placement of bipolar hemiarthroplasty of the left hip. No acute periprosthetic fracture. Expected postoperative soft tissue gas along the lateral aspect of the hip. Dictated by: Dictated on workstation # [id number]
--- NOTE | 2022-03-10 15:58 | OPERATIVE REPORT ---
DATE OF SERVICE: 03/10/2022 PREOPERATIVE DIAGNOSIS: Displaced left neck of femur fracture. POSTOPERATIVE DIAGNOSIS: Displaced left neck of femur fracture. PROCEDURE: Left hip bipolar replacement. SURGEON: Markel Chisholm MD CLARITY DEVELOPER: Dl Griffin, who assisted throughout the procedure and closed the incision. ANESTHESIA: General endotracheal by Matthew Freeman CRNA. ESTIMATED BLOOD LOSS: 150 mL. DRAINS: None. COMPLICATIONS: None. POSTOPERATIVE PLAN: Routine hip precautions with weightbearing as tolerated. The patient was transferred to the recovery room awake and in stable condition. MATERIALS: DePuy/Synthes press-fit size 3 stem with a neutral neck and 44 head/liner. STATEMENT OF MEDICAL NECESSITY: The patient is a 72-year-old female who fell at home yesterday when she tripped. She landed on her left hip and presented to an outside facility with left hip pain. She was found to have a displaced left femoral neck fracture and transferred here for definitive care. The patient was counseled regarding treatment options and elected to proceed with surgical intervention. DESCRIPTION OF PROCEDURE: After risks and benefits of procedure were discussed and questions were answered, an informed consent was signed and placed on chart, the operative site was confirmed in the preoperative holding area initialed by the surgeon. The patient was then transferred to the operating room and after adequate levels of general endotracheal anesthetic were obtained, a timeout was called, confirming the operative site. The patient was then carefully placed in the right lateral decubitus position, being careful to place an axillary roll and pad all bony prominences. Left hip and lower extremity were prepped and draped in the usual sterile fashion. Standard lateral approach was utilized. Hemostasis was obtained with cautery. The iliotibial band was incised in line with the incision. The abductor tendon was released from the greater trochanter, leaving 2 cm cuff for later reattachment. Hip capsule was then opened and the hip was dislocated. The femoral neck cut was completed using a femoral guide. The head was removed without difficulty and sized to a size 44. The acetabulum was closely inspected with no significant degenerative changes noted and no loose bodies were noted. The proximal femur was then prepared with a box chisel followed by the T-handle reamer and sequential broaches to a size 3. Size 3 broach provided excellent fill. The trials were inserted. The hip was reduced and found to be stable in all planes with no instability noted. Full range of motion and no impingement noted. The trials were removed. The joint was further irrigated with pulse lavage. The prosthesis was then placed in approximately 15 degrees of anteversion. The wound was further irrigated. The neck was irrigated and cleaned and then, the head liner construct was placed and was stable. The acetabulum was then inspected again for any loose bodies. The hip was reduced and taken through range of motion, full range of motion was noted with no instability noted and no impingement noted. The joint was further irrigated. The capsule and abductors were reapproximated to their attachment site using #5 Tevdek in tipuvf-rz-xujzr interrupted fashion. The wound was further irrigated. The hip was taken through range of motion and the repair was stable. The iliotibial band was closed in a running fashion with #1 Vicryl with an excellent repair obtained. The wound was further irrigated with pulse lavage, 0 Vicryl was used for the deep subcutaneous layer, 2-0 Vicryl for the superficial subcutaneous layer, zafar used on the skin. A soft dressing and abduction pillow were applied, and the patient was transferred to the recovery room awake and in stable condition. Job ID: [id number] DocumentID: [id number] Dictated Date: 03/10/2022 12:35:06 Go Go Dancer Date: 03/10/2022 15:58:02 Dictated By: MARKEL CHISHOLM MD
[2022-03-10] MEDS: CEFUROXIME INJECTION 750 MG in NS (IVPB) 50 ML IV SCH (18:42)
[2022-03-10] MEDS: SENNOSIDES 8.6 MG (SENOKOT) TAB PO SCH (20:28)
[2022-03-10] MEDS: clonazePAM 0.5 MG (KlonoPIN) TAB PO SCH (20:29)
[2022-03-11 03:22] VITALS: BP 98/51
[2022-03-11] MEDS: CEFUROXIME INJECTION 750 MG in NS (IVPB) 50 ML IV SCH (03:37)
[2022-03-11 06:00] LABS: BASOPHILS % (AUTO) 0 % (0-10); EOSINOPHILS # (AUTO) 0.1 10^3/uL (0.0-0.3); EOSINOPHILS % (AUTO) 1 % (0-10); HEMATOCRIT 31 % (35-52); HEMOGLOBIN 10.4 g/dL (11.5-16.0); LYMPHOCYTES # (AUTO) 1.4 10^3/uL (1.0-4.0); LYMPHOCYTES % (AUTO) 15 % (12-44); MEAN CORPUSCULAR HEMOGLOBIN 32 pg (25-34); MEAN CORPUSCULAR HGB CONC 34 g/dL (32-36); MEAN CORPUSCULAR VOLUME 94 fL (80-99); MEAN PLATELET VOLUME 10.7 fL (9.0-12.2); MONOCYTES # (AUTO) 0.7 10^3/uL (0.0-1.0); MONOCYTES % (AUTO) 8 % (0-12); NEUTROPHILS # (AUTO) 7.1 10^3/uL (1.8-7.8); NEUTROPHILS % (AUTO) 76 % (42-75); PLATELET COUNT 170 10^3/uL (130-400); WHITE BLOOD COUNT 9.4 10^3/uL (4.3-11.0)
[2022-03-11] MEDS: MAGNESIUM 1 GM/100 ML IVPB 100 ML IV SCH (06:00)
[2022-03-11] MEDS: KCL 20 MEQ TAB (K-DUR) PO SCH (06:00)
[2022-03-11] MEDS: POTASSIUM CL 10MEQ/50ML IVPB 50 ML IV SCH (06:00)
[2022-03-11 06:14] LABS: POTASSIUM 4.1 MMOL/L (3.6-5.0)
[2022-03-11 06:15] LABS: CALCIUM 8.8 MG/DL (8.5-10.1)
[2022-03-11 06:20] LABS: CREATININE SERUM 0.62 MG/DL (0.60-1.30)
[2022-03-11 06:22] LABS: MAGNESIUM 1.8 MG/DL (1.6-2.4)
[2022-03-11] MEDS ORDERED: MULTIVIT W/MINERALS TAB (THERAGRAN M) PO SCH (07:00)
--- NOTE | 2022-03-11 07:00 | Progress Note ---
Standard Progress Note Progress Notes/Assess & Plan Date Seen by a Provider: Mar 11, 2022 Time Seen by a Provider: 06:58 Progress/Assessment & Plan consult dictated patient seen and examined plan for left hip bipolar replacement tomorrow Final Diagnosis no complaints Vital Signs Date Time Temp Pulse Resp B/P (MAP) Pulse Ox O2 Delivery O2 Flow Rate FiO2 03/11/22 03:22 36.7 84 16 98/51 (67) 97 Room Air 03/11/22 01:00 74 03/10/22 23:31 36.6 84 16 104/52 (69) 98 Room Air 03/10/22 20:30 Nasal Cannula 2.50 03/10/22 19:32 36.5 93 16 103/68 (80) 100 Room Air 03/10/22 19:00 96 03/10/22 15:49 36.1 88 18 110/77 (88) 99 Nasal Cannula 2.00 03/10/22 13:40 36.4 20 103/52 (69) 93 Room Air 03/10/22 13:40 Room Air 03/10/22 13:30 OxyMask 2 03/10/22 13:30 20 99/49 (66) 94 OxyMask 2 03/10/22 13:20 20 93/46 (62) 98 OxyMask 4 03/10/22 13:15 OxyMask 4 03/10/22 13:10 20 96/50 (65) 96 OxyMask 4 03/10/22 13:00 98 03/10/22 13:00 OxyMask 4 03/10/22 13:00 20 97/60 (72) 96 OxyMask 4 03/10/22 12:50 20 97/52 (67) 99 OxyMask 4 03/10/22 12:42 OxyMask 4 03/10/22 12:42 37.0 20 100/50 (67) 100 OxyMask 4 03/10/22 12:00 36.0 96 17 104/65 (78) 97 Nasal Cannula 2.00 03/10/22 07:43 37.1 101 17 108/64 (79) 98 Nasal Cannula 2.00 03/10/22 07:34 98 Room Air 03/10/22 07:00 102 I & O 03/11/22 07:00 Intake Total 2270 ml Output Total 4000 ml Balance -1730 ml Laboratory Tests Test 03/11/22 05:52 Range/Units White Blood Count 9.4 4.3-11.0 10^3/uL Red Blood Count 3.28 L 3.80-5.11 10^6/uL Hemoglobin 10.4 L 11.5-16.0 g/dL Hematocrit 31 L 35-52 % Mean Corpuscular Volume 94 80-99 fL Mean Corpuscular Hemoglobin 32 25-34 pg Mean Corpuscular Hemoglobin Concent 34 32-36 g/dL Red Cell Distribution Width 13.1 10.0-14.5 % Platelet Count 170 130-400 10^3/uL Mean Platelet Volume 10.7 9.0-12.2 fL Immature Granulocyte % (Auto) 0 % Neutrophils (%) (Auto) 76 H 42-75 % Lymphocytes (%) (Auto) 15 12-44 % Monocytes (%) (Auto) 8 0-12 % Eosinophils (%) (Auto) 1 0-10 % Basophils (%) (Auto) 0 0-10 % Neutrophils # (Auto) 7.1 1.8-7.8 10^3/uL Lymphocytes # (Auto) 1.4 1.0-4.0 10^3/uL Monocytes # (Auto) 0.7 0.0-1.0 10^3/uL Eosinophils # (Auto) 0.1 0.0-0.3 10^3/uL Basophils # (Auto) 0.0 0.0-0.1 10^3/uL Immature Granulocyte # (Auto) 0.0 0.0-0.1 10^3/uL Sodium Level 142 135-145 MMOL/L Potassium Level 4.1 3.6-5.0 MMOL/L Chloride Level 107 98-107 MMOL/L Carbon Dioxide Level 23 21-32 MMOL/L Anion Gap 12 5-14 MMOL/L Blood Urea Nitrogen 7 7-18 MG/DL Creatinine 0.62 0.60-1.30 MG/DL Estimat Glomerular Filtration Rate 95 BUN/Creatinine Ratio 11 Glucose Level 99 70-105 MG/DL Calcium Level 8.8 8.5-10.1 MG/DL Magnesium Level 1.8 1.6-2.4 MG/DL Radiograph--HW well positioned without fracture L hip dressing intact intact DF and PF of toes and ankle with intact sensation to light touch throughout. pulses sym s/p L hip bipolar mobilize DC Jett when mobile ALVINO NORRIS MD Mar 11, 2022 07:00
--- NOTE | 2022-03-11 07:02 | D/C HH Face to Face Order ---
D/C Face to Face Orders Reconcile Patient Problems Problems Reviewed?: Yes Instructions for Patient Via [facility], Patient Instructions/FollowUp: two weeks Physician to follow Patient: two weeks Discharge Diet for Home: Regular Diet Patient Data-Allergies,Ht & Wt Patient Allergies: Coded Allergies: amoxicillin (Verified Allergy, Unknown, HIVES, 02/14/19) Height (Feet): 5 Height (Inches): 2.00 Weight (Pounds): 149 Weight (Ounces): 0.0 Home Health Need/Face to Face Date of Face to Face: Mar 11, 2022 Clinical Findings: Muscle weakness, Pain with ambulation, Unsteady gait I have seen Pt [id number]: Yes Discharged To: Home Diagnosis/Conditions: left hip bipolar replacement Patient is Homebound due to: Muscle weakness, Pain w/ambulation Homebound Status Due to the above stated illness, injury or surgical procedure (medical condition or diagnosis) and associated clinical findings, the patient is homebound because of his/her inability to leave home except with aid of a supportive device and/or person AND leaving the home requires a considerable and taxing effort or is medically contraindicated. Pt req the following assistanc: Walker Home Health Nursing Orders Home Health Services Order: Physical Therapy-Evaluate & Treat Home Health Infusion Therapy Line Start Date: Mar 09, 2022 Therapy Orders Therapy Orders: Physical Therapy, PT to assess for OT Therapy Specific Orders: Eval assistive deivces, Teach enviro modifications/safety, Gait training, Increase strength/endurance, Provider maintenance therapy, Restore ROM Certify Stmt I certify that this patient is under my care and that I, a nurse practitioner or a physician; a pharmaceutical assistant working with me, had a face to face encounter that - meets the physician face to face encounter requirements with this patient as hao mari. ALVINO NORRIS MD Mar 11, 2022 07:02
[2022-03-11 07:25] VITALS: BP 106/69
[2022-03-11] MEDS ORDERED: ENOXAPARIN 40 MG/0.4 ML (LOVENOX) SYR SC SCH (08:00)
[2022-03-11] MEDS: DOCUSATE SODIUM 100 MG (COLACE) CAP PO SCH (08:30)
[2022-03-11] MEDS: LACTATED RINGERS 1,000 ML IV SCH (08:41)
[2022-03-11 08:55] VITALS: BP 77/44
[2022-03-11 09:00] VITALS: BP 104/53
[2022-03-11] MEDS ORDERED: ASPIRIN E.C. 81 MG (ECOTRIN) TAB PO SCH (09:00)
--- NOTE | 2022-03-11 09:25 | Physical Therapy Evaluation ---
PT Evaluation-General Medical Diagnosis Admission Date Mar 09, 2022 at 17:10 Medical Diagnosis: left hip fracture Onset Date: Mar 09, 2022 Therapy Diagnosis Therapy Diagnosis: debility/weakness Height/Weight Height (Feet): 5 Height (Inches): 2.00 Weight (Pounds): 149 Weight (Ounces): 0.0 Precautions Precautions/Isolations: Standard Precautions THR precautions Weight Bear Status Right Lower Extremity: Right Weight Bearing/Tolerated Left Lower Extremity: Left Weight Bearing/Tolerated Referral Physician: Phan Reason for Referral: Evaluation/Treatment Medical History Additional Medical History unremarkable Current History EMS secondary patient tripped on cords Reviewed History: Yes Social History Home: Single Level Current Living Status: Spouse Entry Into Home: Stairs With Railing Prior Prior Level of Function SCALE: Activities may be completed with or without assistive devices. 5-Ngjmaakdar-mnbdcse completes the activity by him/herself with no assistance from a helper. 5-Set-up or Clean-up Assistance-helper sets up or cleans up; patient completes activity. [place] assists only prior to or following the activity. 4-Supervision or Touching Assistance-helper provides verbal cues and/or touching/steadying and/or contact guard assistance as patient completes activity. Assistance may be provided throughout the activity or intermittently. 3-Partial/Moderate Assistance-helper does LESS THAN HALF the effort. [place] lifts, holds or supports trunk or limbs, but provides less than half the effort. 2-Substantial/Maximal Assistance-helper does MORE THAN HALF the effort. [place] lifts or holds trunk or limbs and provides more than half the effort. 4-Higqljnil-hdjccv does ALL the effort. Patient does none of the effort to complete the activity. Or, the assistance of 2 or more helpers is required for the patient to complete the activity. If activity was not attempted, code reason: 7-Patient Refused. 9-Not Applicable-not attempted and the patient did not perform the activity before the current illness, exacerbation or injury. 10-Not Attempted due to Environmental Limitations-(lack of equipment, weather restraints, etc.). 88-Not Attempted due to Medical Conditions or Safety Concerns. Bed Mobility: 6 Transfers (B,C,W/C): 6 Gait: 6 Stairs: 6 Indoor Mobility (Ambulation): Independent Stairs: Independent Prior Devices Use: None PT Evaluation-Current Subjective Patient agrees to PT. RN issued pain medication prior to PT. Pain Numeric Pain Scale: 4 Location: Left Location Body Site: Hip Pain Description: Acute Comment: with activity/a 2/10 at rest Objective Patient Orientation: Normal For Age Attachments: Oxygen, Jett Catheter, IV ROM/Strength ROM Lower Extremities left hip precautions/right LE WFL Strength Lower Extremities right LE 4/5 grossly/left LE 3+/5 grossly Integumentary/Posture Integumentary refer to nursing notes Bowel Incontinence: No Bladder Incontinence: Jett Cath Posture WFL Neuromuscular (Tone, Coordination, Reflexes) grossly intact Sensory Vision: Functional Hearing: Functional Sensation Right Lower Extremit: Intact Sensation Left Lower Extremity: Intact Transfers Roll Left to Right (QC): 4 Lying to Sitting/Side of Bed(Q: 3 Sit to Stand (QC): 4 Chair/Zwk-dr-Tiiqh Xfer(QC): 4 Gait Does the Patient Walk?: Yes Mode of Locomotion: Walk Anticipated Mode of Locomotion: Walk Walk 10 feet (QC): 4 Walk 50 ft with 2 Turns(QC): 4 Walk 150 ft (QC): 4 Distance: 150' Gait Assistive Device: FWW Comments/Gait Description CGA for safety/slow, step to gait sequence Balance Sitting Static: Normal Sitting Dynamic: Normal Standing Static: Good Standing Dynamic: Good Assessment/Needs Patient had hypotensive episode during ambulation (74/44). RN present. Patient recovered after recovering after transferring to chair. Patient's first time up requiring time to complete tasks. Patient did fatigue very quickly with minimal activity due to hypotension. Increase activity as tolerated by patient. Rehab Potential: Good PT Automotive Software Engineer Goals Automotive Software Engineer Goals PT [facility] Goals Time Frame: March 29, 2022 Roll Left & Right (QC): 6 Sit to Lying (QC): 6 Lying-Sitting on Side/Bed(QC): 6 Sit to Stand (QC): 6 Chair/Npk-dq-Tmdxw Xfer(QC): 6 Toilet Transfer (QC): 6 Walk 10 feet (QC): 6 Walk 50ft with 2 Turns (QC): 6 Walk 150 ft (QC): 6 1 Step (curb) (QC): 4 4 Steps (QC): 4 PT Plan Problem List Problem List: Activity Tolerance, Functional Strength, Balance, Gait, Transfer, Bed Mobility Treatment/Plan Treatment Plan: Continue Plan of Care Treatment Plan: Bed Mobility, Education, Functional Activity Fercho, Functional Strength, Gait, Safety, Therapeutic Exercise, Transfers Treatment Duration: March 29, 2022 Frequency: 11 times per week Estimated Hrs Per Day: .5 hour per day Patient and/or Family Agrees t: Yes Time/GCodes Time In: 850 Time Out: 905 Total Billed Treatment Time: 15 Total Billed Treatment 1 visit EVModC 15 min MARCELL MARINO PT Mar 11, 2022 09:25
[2022-03-11 09:58] VITALS: BP 99/63
--- NOTE | 2022-03-11 10:13 | Discharge Summary ---
Diagnosis/Chief Complaint Date of Admission Mar 09, 2022 at 17:10 Date of Discharge Discharge Date: Mar 11, 2022 Admission Diagnosis Closed left hip fracture Primary Care Discharge Diagnosis (1) Closed left hip fracture Status: Acute Discharge Summary Discharge Physical Exam Allergies: Coded Allergies: amoxicillin (Verified Allergy, Unknown, HIVES, 02/14/19) Vitals & I&Os Vital Signs Date Time Temp Pulse Resp B/P (MAP) Pulse Ox O2 Delivery O2 Flow Rate FiO2 03/11/22 09:58 97 99/63 (75) 98 Room Air 03/11/22 07:59 2.00 03/11/22 07:25 36.6 18 03/09/22 18:09 21 General Appearance: No Apparent Distress, WD/WN Cardiovascular: Regular Rate, Rhythm, No Murmur Neurologic/Psychiatric: Alert, Oriented x3 Hospital Course Patient is 72-year-old female who was admitted to the hospital due to a hip fracture who underwent operative repair with Dr. Chisholm. She did well with surgery she was discharged on postoperative day #1 to inpatient rehab to continue with intensive therapy. Labs (last 24 hrs) Laboratory Tests 03/11/22 05:52: White Blood Count 9.4, Red Blood Count 3.28L, Hemoglobin 10.4L, Hematocrit 31L, Mean Corpuscular Volume 94, Mean Corpuscular Hemoglobin 32, Mean Corpuscular Hemoglobin Concent 34, Red Cell Distribution Width 13.1, Platelet Count 170, Mean Platelet Volume 10.7, Immature Granulocyte % (Auto) 0, Neutrophils (%) (Auto) 76H, Lymphocytes (%) (Auto) 15, Monocytes (%) (Auto) 8, Eosinophils (%) (Auto) 1, Basophils (%) (Auto) 0, Neutrophils # (Auto) 7.1, Lymphocytes # (Auto) 1.4, Monocytes # (Auto) 0.7, Eosinophils # (Auto) 0.1, Basophils # (Auto) 0.0, Immature Granulocyte # (Auto) 0.0, Sodium Level 142, Potassium Level 4.1, Chloride Level 107, Carbon Dioxide Level 23, Anion Gap 12, Blood Urea Nitrogen 7, Creatinine 0.62, Estimat Glomerular Filtration Rate 95, BUN/Creatinine Ratio 11, Glucose Level 99, Calcium Level 8.8, Magnesium Level 1.8 Microbiology 03/09/22 MRSA Screen - Final, Complete MRSA not isolated Patient resulted labs reviewed. Pending Labs Laboratory Tests 03/11/22 05:52: White Blood Count 9.4, Red Blood Count 3.28, Hemoglobin 10.4, Hematocrit 31, Mean Corpuscular Volume 94, Mean Corpuscular Hemoglobin 32, Mean Corpuscular Hemoglobin Concent 34, Red Cell Distribution Width 13.1, Platelet Count 170, Mean Platelet Volume 10.7, Immature Granulocyte % (Auto) 0, Neutrophils (%) (Auto) 76, Lymphocytes (%) (Auto) 15, Monocytes (%) (Auto) 8, Eosinophils (%) (Auto) 1, Basophils (%) (Auto) 0, Neutrophils # (Auto) 7.1, Lymphocytes # (Auto) 1.4, Monocytes # (Auto) 0.7, Eosinophils # (Auto) 0.1, Basophils # (Auto) 0.0, Immature Granulocyte # (Auto) 0.0, Sodium Level 142, Potassium Level 4.1, Chloride Level 107, Carbon Dioxide Level 23, Anion Gap 12, Blood Urea Nitrogen 7, Creatinine 0.62, Estimat Glomerular Filtration Rate 95, BUN/Creatinine Ratio 11, Glucose Level 99, Calcium Level 8.8, Magnesium Level 1.8 Imaging: Reviewed Imaging Report Discussion & Recommendations Discharge Planning: >30 minutes discharge planning Discharge Home Medications: Active Scripts Active Reported Vitamin D3 (Cholecalciferol (Vitamin D3)) 125 Mcg Capsule 125 Mcg PO BID Probiotic (L.acidoph & Paracasei,B.lactis) 1 Each Capsule 1 Each PO DAILY Clonazepam 0.5 Mg Tablet 0.5 Mg PO HS Instructions to patient/family Please see electronic discharge instructions given to patient. Problem Qualifiers (1) Closed left hip fracture: Encounter type: initial encounter Qualified Codes: S72.002A - Fracture of unspecified part of neck of left femur, initial encounter for closed fracture DAYRON HASTINGS MD Mar 11, 2022 10:13
[2022-03-11] MEDS: SENNOSIDES 8.6 MG (SENOKOT) TAB PO SCH (10:39)
[2022-03-11 11:17] VITALS: BP 99/63
--- NOTE | 2022-03-11 14:19 | Anesthesia-General Post-Op ---
General Patient Condition Mental Status/LOC: Same as Preop Cardiovascular: Satisfactory Nausea/Vomiting: Absent Respiratory: Satisfactory Pain: Controlled Complications: Absent Post Op Complications Complications None Follow Up Care/Instructions Patient Instructions None needed. Anesthesia/Patient Condition Patient Condition Patient is doing well, no complaints, stable vital signs, no apparent adverse anesthesia problems. ROSANGELA URRUTIA DO Mar 11, 2022 14:19
== END 2022-03-11 11:17 | DRG 522 ==
LOC: EDUNIT# 14:13 → ER FS 14:14 → 4TH 17:10
PROVIDERS: ADMIT Internal Medicine; ATTEND Internal Medicine
PROC: 0SRS0JA Replacement of Left Hip Joint, Femoral Surface with Synthetic Substitute, Uncemented, Open Approach (ICD-10-PCS; principal; 2022-03-10 11:14)
DX: S72.012A Unspecified intracapsular fracture of left femur, initial encounter for closed fracture (principal); E87.6 Hypokalemia; G47.00 Insomnia, unspecified; F41.9 Anxiety disorder, unspecified; Z20.822 Contact with and (suspected) exposure to COVID-19; W19.XXXA Unspecified fall, initial encounter; Z88.1 Allergy status to other antibiotic agents
CPT/HCPCS: 36415; 51702; 71045; 73501; 73502; 80048; 80053; 81000; 83735; 85007; 85025; 85027; 87081; 87636; 94664; 94760

== ENCOUNTER 2022-03-11 10:19 | Inpatient (IN) | payer MEDICARE ==
[~2022-03-11] VITALS: Ht 160 cm; Wt 70.6 kg
[~2022-03-11 10:19] MED LIST changes: +CHOL500050 PO; +CLON0.5T4 PO; +L.AC1CAP6 PO
[2022-03-11] MEDS ORDERED: ALPRAZolam 0.25 MG (XANAX) TAB PO PRN (10:45)
[2022-03-11] MEDS ORDERED: FLEET ENEMA ADULT 1 EA BTL PR PRN (10:45)
[2022-03-11] MEDS ORDERED: guaiFENesin/CODEINE (ROBITUSSIN AC) 10ML UDC PO PRN (10:45)
[2022-03-11] MEDS ORDERED: ACETAMINOPHEN 325 MG TABLET PO PRN ×2 (10:45→17:45)
[2022-03-11] MEDS ORDERED: LACTULOSE SYRUP 10GM/15ML (ENULOSE) 30ML UDC PO PRN (10:45)
[2022-03-11] MEDS ORDERED: ONDANSETRON 4 MG (ZOFRAN) ORAL DISSOLVE TAB PO PRN ×2 (10:45→17:45)
[2022-03-11] MEDS ORDERED: diphenhydrAMINE 25 MG TAB (BENADRYL) PO PRN (10:45)
[2022-03-11] MEDS ORDERED: MELATONIN 3 MG TABLET PO PRN ×2 (10:45→17:45)
[2022-03-11] MEDS ORDERED: BISACODYL 10 MG SUPP (DULCOLAX) PR PRN (10:45)
[2022-03-11] MEDS ORDERED: CALCIUM CARBONATE 500 MG (TUMS) TAB.CHEW PO PRN (10:45)
[2022-03-11] MEDS ORDERED: LOPERAMIDE 2 MG (IMODIUM) TABLET PO PRN (10:45)
[2022-03-11] MEDS ORDERED: DOCUSATE SODIUM 100 MG (COLACE) CAP PO PRN (10:45)
[2022-03-11 12:24] VITALS: BP 108/56
--- NOTE | 2022-03-11 12:39 | Progress Note ---
SYLWIA SNEED 03/11/22 1239: Progress Note Subjective: CC: weakness status post left hip bipolar replacement on 03/10/22 HPI: The patient is a 72 YO female with a history of anxiety and insomnia who presented to the ED on 03/09/22 for a ground level fall. The patient reports that she fell over some cords and landed on her left side. The patient denies hitting her head or LOC. Her fall resulted in a closed displaced left neck femur fracture. The patient underwent left hip biplor replacement on 03/10/[address] Chisholm. Today the patient is in good spirits. She denies any fevers. Her only pain she reports is in her left hip. She had no other complaints. ROS: General: No fevers, no chills. GI: no nausea, no vomiting. Cardio: no chest pain, no heart palpitations. Respiratory: no SOB, no cough : no dysuria, no hematuria. MSK: left hip pain PMH: anxiety, insomnia Meds: Klonopin Social Hx: PT is . No ETOH use. No Tobacco use. No recreational drug use. Allergies: Seasonal, Amoxicillin with hives reaction Family History: Mother with history of cardiovascular disease and hypertension Objective: Vitals: Temperature: 35.6 C. HR: 95 BPM. RR: 18. BP: 108/56. SATS: 94% on Room Air. PE: General Appearance: No Apparent Distress, WN/WD HEENT: PERRL/EOMI, Moist Mucous Membranes Neck: Full Range of Motion, Normal Inspection, Non Tender, Supple Respiratory: Chest Non Tender, Lungs Clear, Normal Breath Sounds, No Accessory Muscle Use, No Respiratory Distress Cardiovascular: Regular Rate, Rhythm, No Edema, No Murmur, Normal Peripheral Pulses Gastrointestinal: Normal Bowel Sounds, No Organomegaly, No Pulsatile Mass, Soft, Non-tender Extremity: Normal Inspection, No Calf Tenderness, No Pedal Edema, Left hip pain Neurologic/Psychiatric: Alert, Oriented x3, No Motor/Sensory Deficits, Normal Mood/Affect Skin: Normal Color, Warm/Dry Lymphatic: No Adenopathy Assessment: Weakness Fall resulting in a closed displaced left neck femur fracture. Status post left hip bipolar replacement on 03/10/22 Anxiety Insomnia Plan: Weakness Fall resulting in a closed displaced left neck femur fracture. Status post left hip bipolar replacement on 03/10/22 PT will be transferred to inpatient rehab today, where she will participate in PT and OT to regain her strength following her fall and orthopedic procedure. The patient is content with this plan. Continue incentive spirmoetry. Anxiety Insomnia Xanax 0.25mg Q8hr PRN. Melatonin 3mg HS PRN. CHAYITO NAIK DO 03/12/22 0546: Supervisory-Addendum Brief Verification & Attestation Participated in pt care: history, MDM, physical Personally performed: exam, history, MDM, supervision of care Care discussed with: Medical Student Procedures: n/a Results interpretation: Verified all documentation Verification and Attestation of Medical Student E/M Service A medical student performed and documented this service in my presence. I reviewed and verified all information documented by the medical student and made modifications to such information, when appropriate. I personally performed the physical exam and medical decision making. Chayito Naik, Mar 12, 2022,05:46 SYLWIA SNEED Mar 11, 2022 12:39 CHAYITO NAIK DO Mar 12, 2022 05:46
--- NOTE | 2022-03-11 12:52 | ST Cognitive Linguistic Eval ---
Speech Evaluation-General Medical Diagnosis Left Hip Replacement Onset Date: Mar 11, 2022 Therapy Diagnosis Therapy Diagnosis: Intact Cognitive Linguistic Skills Precautions Precautions: Fall Precautions/Isolations: Fall Prevention, Standard Precautions Referral Referring Physician: Dr. Booth Reason for Referral: Evaluation/Treatment Medical History Current History The patient is a 72 year old female with a past medical history of anxiety and insomnia, who presented to the emergency department on 03/09/22 for a ground level fall. The fall resulted in a closed displaced left neck femur fracture. The patient underwent left hip biplor replacement on 03/10/[address] Chisholm. Reviewed History: Yes Speech PLF-Current Status Prior Level of Function The patient denied prior or current difficulties with her speech, language, cognition, or swallowing. Subjective The patient was seated upright in a recliner, awake and alert upon entrance to her room by the clinician. The patient greeted the clinician appropriately and was agreeable to participation in the cognitive linguistic assessment. Language Eval: Auditory Comprehends Simple Yes/No Ques: Functional Indent/Objects Multiple [place]: Functional Ident/Pics in Multiple [place]: Functional Follows 1-Step Commands: Functional Follows Complex Directions: Functional Follows General Conversations: Functional Language Eval: Verbal Language Completes Spontaneous Greeting: Functional Produces Auto, Serial Info: Functional Imitates Simple Words/Phrases: Functional Word Finding: Functional Requests Basic Needs: Functional States Basic Personal Info: Functional Expresses Complex Ideas: Functional Language Evaluation: Reading Follows Simple Written Direct: Functional Language Evaluation: Writing Writes to Simple Dictation: Functional Cognitive Patient Orientation The patient was independently oriented to self, location, month, day of week, date and year. Objective Cognitive Domain Attention: WNL Memory: WNL Problem Solving: Functional Executive Functions: WNL Visuospatial Skills: WNL Composite Severity Rating: WNL Clock Drawing Severity Rating: Mild Objective Formal/Standardized Tests [facility] Mental Status Exam (UMS) Results The patient demonstrated a result of +28/30 on the SLUMS correlating to normal neurocognitive skills. Oral Motor/Speech Production Dysarthria or apraxia of speech were not demonstrated. The patient displayed 100% intelligibility within known and unknown contexts. Impression The patient demonstrated intact neurocognitive skills. The patient received two points deducted secondary to placing the clock hands at the wrong time. Speech Patient Assess Expression of Ideas/Wants: Expression (4) Understanding Verbal Content: Understands (4) Brief Interview-Mental Status: Yes Repetition of Three Words: Three (3) Temporal Orientation: Year: Correct (3) Temporal Orientation: Month: Accurate within 5 days(2) Temporal Orientation: Day: Correct (1) Recall : Wear to say "Sock": Yes, no cue required (2) Recall : Color: Yes, no cue required (2) Recall : Bed: Yes, no cue required (2) Memory/Recall Ability: Current season, Staff names and faces, That he or she is in a hsp/hsp unit Speech-Plan Treatment Plan Speech Therapy Treatment Plan: Discontinue ST Treatment Duration: Mar 11, 2022 Frequency: 1 time per week Estimated Hrs Per Day: .5 hour per day Rehab Potential: Good Pt/Family Agrees to Plan: Yes Safety Risks/Education Teaching Recipient: Patient, Family Teaching Methods: Discussion Response to Teaching: Verbalize Understanding Education Topics Provided: Results of KEATON POC Time Speech Therapy Time In: 12:55 Speech Therapy Time Out: 13:25 Total Billed Time: 30 Billed Treatment Time 1, LEONARD ESCOTO ELIZAB[facility] ST Mar 11, 2022 12:52
--- NOTE | 2022-03-11 13:07 | Physical Therapy Evaluation ---
PT Evaluation-General Medical Diagnosis Admission Date Mar 11, 2022 at 11:00 Medical Diagnosis: left RAQUEL Onset Date: Mar 10, 2022 Therapy Diagnosis Therapy Diagnosis: impaired mobility, strength, endurance Height/Weight Height (Feet): 5 Height (Inches): 2.00 Weight (Pounds): 149 Weight (Ounces): 0.0 Weight Bear Status Left Lower Extremity: Left Weight Bearing/Tolerated Referral Physician: Chayito Booth DO Reason for Referral: Evaluation/Treatment Medical History Additional Medical History anxiety Reviewed History: Yes Social History Home: Single Level Current Living Status: Spouse Entry Into Home: Stairs With Railing PT Steps Into Home: 2 Prior Prior Level of Function SCALE: Activities may be completed with or without assistive devices. 3-Oqwpxhznzv-erdwmag completes the activity by him/herself with no assistance from a helper. 5-Set-up or Clean-up Assistance-helper sets up or cleans up; patient completes activity. [place] assists only prior to or following the activity. 4-Supervision or Touching Assistance-helper provides verbal cues and/or touching/steadying and/or contact guard assistance as patient completes activity. Assistance may be provided throughout the activity or intermittently. 3-Partial/Moderate Assistance-helper does LESS THAN HALF the effort. [place] lifts, holds or supports trunk or limbs, but provides less than half the effort. 2-Substantial/Maximal Assistance-helper does MORE THAN HALF the effort. [place] lifts or holds trunk or limbs and provides more than half the effort. 1-Tditotsmo-melzqw does ALL the effort. Patient does none of the effort to complete the activity. Or, the assistance of 2 or more helpers is required for the patient to complete the activity. If activity was not attempted, code reason: 7-Patient Refused. 9-Not Applicable-not attempted and the patient did not perform the activity before the current illness, exacerbation or injury. 10-Not Attempted due to Environmental Limitations-(lack of equipment, weather restraints, etc.). 88-Not Attempted due to Medical Conditions or Safety Concerns. Bed Mobility: 6 Transfers (B,C,W/C): 6 Gait: 6 Stairs: 6 Indoor Mobility (Ambulation): Independent Stairs: Independent Prior Devices Use: None PT Evaluation-Current Subjective Patient in recliner pre tx, agrees to PT. Will be co-treating with OT for part of tx due to poor patient mobility, strength, endurance, low BP with lightheadedness, coordinate UE and LE with activity, safety and reduce risk of falls. Pain Location: No Pain Reported Pt/Family Goals To be independent at home Objective Patient Orientation: Person, Place, Time, Situation Attachments: Oxygen, Jett Catheter, IV Telemetry ROM/Strength ROM Lower Extremities WFL bilaterally Strength Lower Extremities R LE: (Hip flexion 4/5, Knee extension 5/5, Knee flexion 4+/5, DF 4+/5); L LE ( knee extension 3+/5, Knee flexion 4-/5, DF 4/5) Integumentary/Posture Integumentary No abnormalities noted Bowel Incontinence: No Sensory Vision: Functional Hearing: Functional Sensation Right Lower Extremit: Intact Sensation Left Lower Extremity: Intact Transfers Roll Left & Right (QC): 4 (CGA) Sit to Lying (QC): 4 (CGA) Lying to Sitting/Side of Bed(Q: 3 Sit to Stand (QC): 3 Chair/Udx-gd-Eebod Xfer(QC): 4 (CGA) Toilet Transfer (QC): 4 (CGA) Car Transfer (QC): 4 (CGA) Gait Does the Patient Walk?: Yes Mode of Locomotion: Walk Anticipated Mode of Locomotion: Walk Walk 10 feet (QC): 4 (CGA) Walk 50 ft with 2 Turns(QC): 4 (CGA) Walk 150 ft (QC): 88 Walking 10ft/uneven surface-QC: 4 (CGA) Distance: 30', 15', 50' Gait Assistive Device: FWW Comments/Gait Description Patient ambulates slowly, has a step through pattern but decreased on the right side, poor foot clearance. Wheelchair Training Does the Pt Use a Wheelchair?: No Wheel 50 ft with 2 turns (QC): 9 Wheel 150 ft (QC): 9 Type of Wheelchair: N/A Stairs 1 Step (curb) (QC): 88 4 Steps (QC): 88 12 Steps (QC): 88 Balance Sitting Static: Normal Sitting Dynamic: Normal Standing Static: Good Standing Dynamic: Good Picking up an Object (QC): 4 Special Test Comments With cop winder Treatment PT performed bed mobility and transfers, ambulation, balance testing, standing and safety during dressing and ADL's, OT performed dressing, ADL's, UE positioning and safety during activity. Patient scored an 18/28 on the Tinetti Assessment/Needs Patient presented today with L THR. Patient was mostly adherent to all precautions. Patient presented with some unsteadiness with ambulation and tr ansfers. In an attempt to step on a stool, patient lost balance completely and was recovered by SPT. The step was deferred at this time. Patient has good strength with transfers requires CGA with most activities, and min assist with sit to stands, and lying to sitting with moving the L LE. Patient was left in chair with call light, tray, and all needs met. Rehab Potential: Good PT Short Term Goals Short Term Goals Time Frame: Mar 18, 2022 Roll Left & Right: 4 (SBA) Sit to lyin (SBA) Lying to sitting on side of be: 4 (CGA) Sit to stand: 4 (CGA) Chair/dwf-nq-reeao transfer: 4 (SBA) Toilet transfer: 4 (SBA) Car transfer: 4 (SBA) Walk 150 feet: 4 (CGA) 1 step (curb): 4 (CGA) PT Intermediate Goals Intermediate Goals PT Grade And Center Marker Goals Time Frame: April 01, 2022 Roll Left & Right (QC): 6 Sit to Lying (QC): 6 Lying-Sitting on Side/Bed(QC): 6 Sit to Stand (QC): 6 Chair/Xau-cr-Wblwv Xfer(QC): 6 Toilet Transfer (QC): 6 Car Transfer (QC): 6 Does the Patient Walk: Yes Walk 10 feet (QC): 6 Walk 50ft with 2 Turns (QC): 6 Walk 150 ft (QC): 6 Walking 10ft on Uneven Surface: 6 1 Step (curb) (QC): 6 4 Steps (QC): 6 12 Steps (QC): 88 Picking up an Object (QC): 6 Wheel 50 feet with 2 turns (QC: 9 Wheel 150 feet: 9 PT Plan Problem List Problem List: Activity Tolerance, Functional Strength, Safety, Balance, Gait, Transfer, Bed Mobility, ROM Treatment/Plan Treatment Plan: Continue Plan of Care Treatment Plan: Bed Mobility, Education, Functional Activity Fercho, Functional Strength, Group Therapy, Gait, Safety, Therapeutic Exercise, Transfers Treatment Duration: April 01, 2022 Frequency: At least 5 of 7 days/Wk (IRF) Estimated Hrs Per Day: 1.5 hours per day Patient and/or Family Agrees t: Yes Safety Risks/Education Patient Education: Gait Training, Transfer Techniques, Reviewed Precautions, Correct Positioning, Safety Issues Teaching Recipient: Patient Teaching Methods: Demonstration, Discussion Response to Teaching: Reinforcement Needed Discharge Recommendations Plan Patient will perform bed mobility and transfer training, balance and endurance training, functional strengthening, stair training, gait training, and education, to improve functional mobility and independence at home. Therapy Discharge Recommendati: Home & Family, Post Acute PT Time/GCodes Time In: 1100 Time Out: 1225 Total Billed Treatment Time: 75 Total Billed Treatment 1 visit EVL 10' FA 65' PT eval from [id number], OT eval from [id number], co-treat from [id number] MARTINA PATRICIA PT Mar 11, 2022 13:07
--- NOTE | 2022-03-11 13:51 | Occupational Therapy Eval ---
OT Evaluation-General/PLF Medical Diagnosis Admission Date Mar 11, 2022 at 11:00 Medical Diagnosis: left RAQUEL Onset Date: Mar 10, 2022 Therapy Diagnosis Therapy Diagnosis: reduced adl status Height/Weight Height (Feet): 5 Height (Inches): 2.00 Weight (Pounds): 149 Weight (Ounces): 0.0 Precautions Precautions/Isolations: Fall Prevention, Standard Precautions Comments Total hip precautions Weight Bear Status Weight Bearing Restriction: Weight Bearing/Tolerated Location Restriction: L LE Referral Physician: Chayito Booth DO Referral Reason: Evaluation/Treatment Medical History Additional Medical History anxiety Current History Pt arrived to ER post fall resulting in L hip fracture. She is now s/p bipolar replacement. Per patient, she lives with her spouse in a single story home. She was indep with adls and iadls prior to admission. She was not using any AD for mobility. Reviewed History: Yes Social History Home: Single Level Current Living Status: Spouse Entry Into Home: Stairs With Railing ADL-Prior Level of Function SCALE: Activities may be completed with or without assistive devices. 0-Jynfnarhiv-xcgaqxd completes the activity by him/herself with no assistance from a helper. 5-Set-up or Clean-up Assistance-helper sets up or cleans up; patient completes activity. [place] assists only prior to or following the activity. 4-Supervision or Touching Assistance-helper provides verbal cues and/or touching/steadying and/or contact guard assistance as patient completes activity. Assistance may be provided throughout the activity or intermittently. 3-Partial/Moderate Assistance-helper does LESS THAN HALF the effort. [place] lifts, holds or supports trunk or limbs, but provides less than half the effort. 2-Substantial/Maximal Assistance-helper does MORE THAN HALF the effort. [place] lifts or holds trunk or limbs and provides more than half the effort. 7-Utitavjgg-nuitpl does ALL the effort. Patient does none of the effort to complete the activity. Or, the assistance of 2 or more helpers is required for the patient to complete the activity. If activity was not attempted, code reason: 7-Patient Refused. 9-Not Applicable-not attempted and the patient did not perform the activity before the current illness, exacerbation or injury. 10-Not Attempted due to Environmental Limitations-(lack of equipment, weather restraints, etc.). 88-Not Attempted due to Medical Conditions or Safety Concerns. Self Care: Independent Functional Cognition: Independent DME/Equipment: Shower Drive Self: Yes OT Current Status Subjective Pt reports L hip pain as 3/10 with activity. Co-treat with PT for part of tx due to poor patient mobility, strength, endurance, low BP with lightheadedness, multiple lines, and to reduce fall risk. Mental Status/Objective Patient Orientation: Person, Place, Situation Attachments: Dietrich Catheter, IV, Oxygen, Telemetry Current Hearing Aids: No Dentures/Partials: No Hand Dominance: Right Upper Extremity ROM WNL Upper Extremity Strength 4/5 throughout ADL-Treatment Eating (QC): 6 Oral Hygiene (QC): 4 Shower/Bathe Self (QC): 88 Upper Body Dressing (QC): 3 Lower Body Dressing (QC): 3 On/Off Footwear (QC): 3 Toileting Hygiene (QC): 1 (dietrich catheter) Pt sitting in chair at OT arrival. BP: 104/56, no complaints of dizziness. Pt is Slightly impulsive, requires cues for safety. Sit<>stand: CGA-Min A, cues for transfers with hip precautions. Pt ambulated ~20 feet with Min A and use of walker. Cues for walker management as pt had tendency to pick walker up when walking/turning. L knee buckling notable during gait, possibly related to surgery anesthesia from previous date. 3 LOB during session needing mod a to recover. Pt often cued to pace self especially when feeling fatigued. Shower not performed secondary to IV infusing. Pt agreeable to attempt tomorrow. OT did educate pt on LHS and compensatory techniques she will need to perform in order to adhere to hip precautions. She sat on EOB to dress. Intermittent Min a for sitting balance due to posterior lean when donning shirt overhead. Education provided on use of aluminum boat inspector and sock aid when donning LB clothing. Post instruction, pt still needs min a to thread LLE into pants. Min a for balance as she stood to pull clothing up to waist. Good follow through with sequencing steps of sock aid, min verbal cues only. She stood to brush teeth with Min a for balance when removing BUE support. See PT note for gait, ambulation, and distance completed. Education OT Patient Education: Correct positioning, Energy conservation, Modified ADL techniques, Progress toward Goal/Update tx plan, Purpose of tx/functional activities, Reviewed precautions, Rehab process, Safety issues, Transfer techniques, Use of adapted equipment Teaching Recipient: Patient Teaching Methods: Demonstration, Discussion Response to Teaching: Verbalize Understanding, Return Demonstration, Reinforcement Needed OT Short Term Goals Short Term Goals Time Frame: Mar 18, 2022 Eatin Oral hygiene: 5 Toileting hygiene: 4 Shower/bathe self: 3 Upper body dressin Lower body dressin Putting on/taking off footwear: 4 OT Chronograph Operator Goals Snf Goals Time Frame: Mar 22, 2022 Eating (QC): 6 Oral Hygiene (QC): 6 Toileting Hygiene (QC): 6 Shower/Bathe Self (QC): 6 Upper Body Dressing (QC): 6 Lower Body Dressing (QC): 6 On/Off Footwear (QC): 6 1=Demonstrate adherence to instructed precautions during ADL tasks. 2=Patient will verbalize/demonstrate understanding of assistive devices/modifications for ADL. 3=Patient will improve strength/tolerance for activity to enable patient to perform ADL's. OT Education/Plan Problem List/Assessment Assessment: Decreased Activ Tolerance, Decreased Safety Aware, Decreased UE S trength, Impaired Funct Balance, Impaired I ADL's, Impaired Self-Care Skills Discharge Recommendations Plan/Recommendations: Continue POC Therapy Discharge Recommendati: Post Acute OT (Home health OT) Equpiment Recommendations-D/C: Machine Milker, Hip Kit, Sock Aide, [place] Treatment Plan/Plan of Care Treatment,Training & Education: Yes Patient would benefit from OT for education, treatment and training to promote independence in ADL's, mobility, safety and/or upper extremity function for ADL's. Plan of Care: ADL Retraining, Functional Mobility, Group Exercise/Act as Ind, UE Funct Exercise/Act Treatment Duration: Mar 22, 2022 Frequency: At least 5 of 7 days/Wk (IRF) Estimated Hrs Per Day: 1.5 hours per day Agreement: Yes Rehab Potential: Good Time/GCodes Start Time: 11:10 Stop Time: 12:25 Total Time Billed (hr/min): 75 Billed Treatment Time 1 visit EVM (10 min) ADL x3 (45 min) FA x2 (35 min) Jes Toledo OT Mar 11, 2022 13:51
[2022-03-11] MEDS ORDERED: ONDANSETRON 4 MG/2 ML (SDV) Z0FRAN IV PRN (17:45)
[2022-03-11] MEDS ORDERED: diphenhydrAMINE 50 MG/ML INJ (BENADRYL) IVP PRN (17:45)
[2022-03-11] MEDS ORDERED: RT-ALBUTEROL SULF 2.5 MG/3 ML PRE-MIX VIAL INH PRN (17:45)
[2022-03-11] MEDS ORDERED: ANTACID SUSP 30 ML UDC (MYLANTA) PO PRN (17:45)
[2022-03-11] MEDS ORDERED: polyethylene glycoL POWDER 17 GM (MIRALAX) PACK PO PRN (17:45)
[2022-03-11] MEDS ORDERED: morphine INJ 4 MG/ML 1 ML (VIAL/SYRINGE) IV PRN (17:45)
--- NOTE | 2022-03-11 18:10 | PM&R Post Admission Assessment ---
PM&R HP Date of Visit: Mar 11, 2022 Time of Visit: 11:30 History of Present Illness CC: Left hip fracture HPI: This is 72 yr old [facility] clinic pt of Breana Cruz in [place]. Pt is retired from [employer]. She presented to the hospital after undergoing a left hip fracture repair by Dr. Chisholm. Pt is currently doing well. We will discontinue the catheter and initiate in-patient rehab protocol with therapies. Will maintain bowel regimen to restart normal bowel function. Pain is well controlled. Hypotension did occur but she did take a pain pill and she does have some fluid shifting from acute blood loss anemia. Subjective: CC: weakness status post left hip bipolar replacement on 03/10/22 HPI: The patient is a 72 YO female with a history of anxiety and insomnia who presented to the ED on 03/09/22 for a ground level fall. The patient reports that she fell over some cords and landed on her left side. The patient denies hitting her head or LOC. Her fall resulted in a closed displaced left neck femur fra cture. The patient underwent left hip biplor replacement on 03/10/[address] Chisholm. Today the patient is in good spirits. She denies any fevers. Her only pain she reports is in her left hip. She had no other complaints. ROS: General: No fevers, no chills. GI: no nausea, no vomiting. Cardio: no chest pain, no heart palpitations. Respiratory: no SOB, no cough : no dysuria, no hematuria. MSK: left hip pain PMH: anxiety, insomnia Meds: Klonopin Social Hx: PT is . No ETOH use. No Tobacco use. No recreational drug use. Allergies: Seasonal, Amoxicillin with hives reaction Family History: Mother with history of cardiovascular disease and hypertension Objective: Vitals: Temperature: 35.6 C. HR: 95 BPM. RR: 18. BP: 108/56. SATS: 94% on Room Air. PE: General Appearance: No Apparent Distress, WN/WD HEENT: PERRL/EOMI, Moist Mucous Membranes Neck: Full Range of Motion, Normal Inspection, Non Tender, Supple Respiratory: Chest Non Tender, Lungs Clear, Normal Breath Sounds, No Accessory Muscle Use, No Respiratory Distress Cardiovascular: Regular Rate, Rhythm, No Edema, No Murmur, Normal Peripheral Pulses Gastrointestinal: Normal Bowel Sounds, No Organomegaly, No Pulsatile Mass, Soft, Non-tender Extremity: Normal Inspection, No Calf Tenderness, No Pedal Edema, Left hip pain Neurologic/Psychiatric: Alert, Oriented x3, No Motor/Sensory Deficits, Normal Mood/Affect Skin: Normal Color, Warm/Dry Lymphatic: No Adenopathy Assessment: Weakness Fall resulting in a closed displaced left neck femur fracture. Status post left hip bipolar replacement on 03/10/22 Anxiety Insomnia Plan: Weakness Fall resulting in a closed displaced left neck femur fracture. Status post left hip bipolar replacement on 03/10/22 PT will be transferred to inpatient rehab today, where she will participate in PT and OT to regain her strength following her fall and orthopedic procedure. The patient is content with this plan. Continue incentive spirmoetry. Anxiety Insomnia Xanax 0.25mg Q8hr PRN. Melatonin 3mg HS PRN. Past Uruumpt-Fjzsoh-Mjlydl Hx Past Med/Social Hx: Reviewed Nursing Past Med/Soc Hx, Reviewed and Corrections made Patient Social History Marrital Status: Employed/Student: retired Alcohol Use: Denies Use Smoking Status: Never a Smoker Recent Hopitalizations: No Seasonal Allergies Seasonal Allergies: Yes Past Medical History Surgeries: Orthopedic Currently Using CPAP: No Currently Using BIPAP: No Psychosocial: Anxiety History of Blood Disorders: No Family History Cardiovascular disease 19 MOTHER Hypertension 19 MOTHER Prior Level of Function Bed Mobility: 6 Transfers: 6 Gait: 6 Stairs: 6 Indoor Mobility (Ambulation): Independent Stairs: Independent Prior Devices Use: None Self Care: Independent Functional Cognition: Independent Drive Self: Yes Current Level of Fuctioning Roll Left to Right: 4 (CGA) Sit to Lyin (CGA) Lying to Sitting/Side of Bed: 3 Sit to Stand: 3 Chair/Ftx-dj-Grbvy Xfer: 4 (CGA) Car Transfer: 4 (CGA) Does the Patient Walk: Yes Mode of Locomotion: Walk Anticipated Mode of Locomotion: Walk Walk 10 feet: 4 (CGA) Walk 50 ft with 2 Turns: 4 (CGA) Walk 150 ft: 88 Walking 10ft on uneven surface: 4 (CGA) Gait Assistive Device: FWW Does the Pt Use a Wheelchair: No Wheel 50 ft with 2 turns: 9 Wheel 150 ft: 9 Type of Wheelchair: N/A 1 Step (curb): 88 4 Steps: 88 12 Steps: 88 Picking up an Object: 4 Eatin Oral Hygiene: 4 Shower/Bathe Self: 88 Upper Body Dressin Lower Body Dressin On/Off Footwear: 3 Toileting Hygiene: 1 (dietrich catheter) PM&R Allergy/Meds/Data Review Allergies Coded Allergies: amoxicillin (Verified Allergy, Unknown, HIVES, 02/14/19) Home Medications Scheduled Cholecalciferol (Vitamin D3) (Vitamin D3), 125 MCG PO BID, (Reported) Clonazepam (Clonazepam), 0.5 MG PO HS, (Reported) L.acidoph & Paracasei,B.lactis (Probiotic), 1 EACH PO DAILY, (Reported) Current Medications Current Medications Reviewed Laboratory Data Laboratory Tests 03/11/22 05:52: Review of Systems Constitutional: see HPI, dizziness, malaise, weakness EENTM: no symptoms reported Respiratory: no symptoms reported Cardiovascular: no symptoms reported Gastrointestinal: no symptoms reported Genitourinary: no symptoms reported Musculoskeletal: back pain, joint pain Skin: no symptoms reported Psychiatric/Neurological: Anxiety All Other Systems Reviewed Negative Unless Noted: Yes Physical Exam Physical Exam Vital Signs Vital Signs - First Documented 03/11/22 03/11/22 11:49 12:24 Temp 35.6 Pulse 95 Resp 18 B/P (MAP) 108/56 (73) Pulse Ox 98 O2 Delivery Nasal Cannula O2 Flow Rate 2.00 Capillary Refill : Height, Weight, BMI Height: 5'2.00" Weight: 149lbs. 0.0oz. 67.518887px; 26.56 BMI Method: General Appearance: No Apparent Distress, WD/WN, Chronically ill Eyes: Bilateral Eye Normal Inspection, Bilateral Eye PERRL HEENT: PERRL/EOMI, Normal ENT Inspection, Pharynx Normal Neck: Full Range of Motion, Normal Inspection, Non Tender, Supple, Carotid Bruit Respiratory: Chest Non Tender, Lungs Clear, Normal Breath Sounds, No Accessory Muscle Use, No Respiratory Distress Cardiovascular: Regular Rate, Rhythm, No Edema, No Gallop, No JVD, No Murmur, Normal Peripheral Pulses Gastrointestinal: Normal Bowel Sounds, No Organomegaly, No Pulsatile Mass, Non Tender, Soft Back: Normal Inspection, No CVA Tenderness, No Vertebral Tenderness Extremity: Normal Capillary Refill, Normal Inspection, Normal Range of Motion (Except postop leg), Non Tender, No Calf Tenderness, No Pedal Edema Neurologic/Psychiatric: Alert, Oriented x3, No Motor/Sensory Deficits, Normal Mood/Affect, Abnormal Gait, Motor Weakness (Generalized) Skin: Normal Color, Warm/Dry Lymphatic: No Adenopathy PM&R Medical Assessment & Plan REHAB/MEDICAL ASSESSMENT AND PLAN: REHAB IMPAIRMENT GROUP: Left hip fracture ETIOLOGIC DIAGNOSIS: Left hip fracture The comorbidities that impact the patients function and/or functional outcome by: Anxiety, insomnia, orthostatic hypotension, postop anemia REHAB PLAN: The patient is being admitted to our comprehensive inpatient rehabilitation facility and can tolerate the intensity of service consisting of at least: 180 minutes of therapy a day, 5 out of 7 days a week Rehab treatment will consist of: PT and OT will focus on regaining function with use of assistive devices in order to regain enough function to return back to independent living The patient/family has a good understanding of our discharge process and will benefit from an interdisciplinary inpatient rehabilitation program. The patient has potential to make improvement and is in need of at least two of the following multidisciplinary therapies including but not limited to physical, occupational, speech, and prosthetics and orthotics. Additionally the patient will need services from respiratory, nutritional services, wound care, psychology, etc. (Customize this to each patient). Given the patients complex condition and risk of further medical complications, rehabilitation services cannot be safely or effectively provided at a lower level of care such as a long-term facility. BARRIERS TO DISCHARGE: Left flank pain ESTIMATED LOS: 7 days DISPOSITION: Home RELEVANT CHANGES SINCE PREADMISSION SCREENING: I have compared the patients medical and functional status at the time of the preadmission screening and there are: no changes PROGNOSIS: Good REHABILITATION GOALS: 1. PT and OT will focus on regaining function with use of assistive devices in order to regain enough function to return back to independent living All the above goals were reviewed with the patient and he/she is in agreement. By signing this document, I acknowledge that I have personally performed a full physical examination on this patient within 24 hours of admission to this inpatient rehabilitation facility and have determined the patient to be able to tolerate the above course of treatment at an intensive level for a reasonable period of time. I will be completing a detailed individualized Plan of Care for this patient by day #4 of the patients stay based upon the Preadmission Screen, the Post-Admission Evaluation, and the therapy evaluations. Admission Dx/Comorbidities: (1) Closed left hip fracture Status: Acute ICD Codes: S72.002A - Fracture of unspecified part of neck of left femur, initial encounter for closed fracture Assessment/Plan Assessment and Plan Assess & Plan/Chief Complaint Assessment: Status post left hip fracture repair Postop anemia acute blood loss type Insomnia Anxiety Plan: Inpatient rehab protocol Monitor hemoglobin May need iron infusion CHITRA NAIK DO Mar 11, 2022 18:09
[2022-03-11 19:31] VITALS: BP 113/66
[2022-03-11] MEDS: clonazePAM 0.5 MG (KlonoPIN) TAB PO SCH (20:47)
[2022-03-11] MEDS: DOCUSATE SODIUM 100 MG (COLACE) CAP PO SCH (20:49)
[2022-03-11] MEDS: polyethylene glycoL POWDER 17 GM (MIRALAX) PACK PO SCH (20:49)
[2022-03-11] MEDS: SENNOSIDES 8.6 MG (SENOKOT) TAB PO SCH (20:50)
[2022-03-11] MEDS ORDERED: DOCUSATE SODIUM 100 MG (COLACE) CAP PO SCH (21:00)
[2022-03-11] MEDS ORDERED: SENNA W/DOCUSATE (SENOKOT S) TABLET PO SCH (21:00)
[2022-03-12 05:53] LABS: BASOPHILS # (AUTO) 0.1 10^3/uL (0.0-0.1); BASOPHILS % (AUTO) 1 % (0-10); EOSINOPHILS # (AUTO) 0.4 10^3/uL (0.0-0.3); EOSINOPHILS % (AUTO) 5 % (0-10); HEMATOCRIT 30 % (35-52); HEMOGLOBIN 10.1 g/dL (11.5-16.0); LYMPHOCYTES # (AUTO) 1.8 10^3/uL (1.0-4.0); LYMPHOCYTES % (AUTO) 21 % (12-44); MEAN CORPUSCULAR HEMOGLOBIN 31 pg (25-34); MEAN CORPUSCULAR HGB CONC 33 g/dL (32-36); MEAN CORPUSCULAR VOLUME 94 fL (80-99); MEAN PLATELET VOLUME 10.6 fL (9.0-12.2); MONOCYTES # (AUTO) 0.7 10^3/uL (0.0-1.0); MONOCYTES % (AUTO) 8 % (0-12); NEUTROPHILS # (AUTO) 5.4 10^3/uL (1.8-7.8); NEUTROPHILS % (AUTO) 65 % (42-75); PLATELET COUNT 177 10^3/uL (130-400); WHITE BLOOD COUNT 8.3 10^3/uL (4.3-11.0)
[2022-03-12 06:09] LABS: ALBUMIN 3.5 GM/DL (3.2-4.5); POTASSIUM 3.9 MMOL/L (3.6-5.0)
[2022-03-12 06:11] LABS: CALCIUM 8.7 MG/DL (8.5-10.1)
--- NOTE | 2022-03-12 06:11 | Individualized Plan of Care ---
Individualized Plan of Care Rehab Nursing IPOC Order Admission Date Mar 11, 2022 at 11:00 Current Orders Orders Admission Order(Inpt,Obs,Sdc) (03/11/22 10:42) Vital Signs: Per Unit Policy ( 08,16,00 (03/11/22 10:42) Douglas Parsons (03/11/22 10:42) Sequential Compression Device (03/11/22 10:42) Collar Tacker-Inpt Rehab Con (03/11/22 10:42) Rehab Nursing Orders-Ipoc (03/11/22 10:42) Physical Therapy Rehab Orders (03/11/22 10:42) Occupational Therapy Rehab Ord (03/11/22 10:42) Speech Therapy Rehab Orders (03/11/22 10:42) Cbc With Automated Diff (03/12/22 06:00) Comprehensive Metabolic Panel (03/12/22 06:00) Precautions (Aru) (03/11/22 10:42) Weekly Weight WEEK (03/11/22 10:42) Rehab-Intensity Of Therapy (03/11/22 10:42) Initiate Admission Nursing Pro .admission (03/11/22 10:42) Alprazolam Tablet (Xanax Tablet) (03/11/22 10:45) Calcium Carbonate Chew Tablet (Antacid C (03/11/22 10:45) Diphenhydramine Tablet (Benadryl Tablet) (03/11/22 10:45) Docusate Sodium Capsule (Colace Capsule) (03/11/22 21:00) Docusate Sodium Capsule (Colace Capsule) (03/11/22 10:45) Bisacodyl Suppository (Dulcolax Supposit (03/11/22 10:45) Lactulose Oral Solution (Enulose Oral So (03/11/22 10:45) Na Phos/Na Biphos Enema (Fleet Enema Sly (03/11/22 10:45) Guaifenesin/Codeine Syrup (Robitussin Ac (03/11/22 10:45) Loperamide Tablet (Imodium Tablet) (03/11/22 10:45) Melatonin Tablet (Melatonin Tablet) (03/11/22 10:45) Polyethylene Glycol Powder Pkt (Miralax (4/19/22 21:00) Ondansetron Oral Dissolve Tab (Zofran (03/11/22 10:45) Senna S Tablet (Senokot S Tablet) (03/11/22 21:00) Acetaminophen Tablet/Caplet (Tylenol T (03/11/22 10:45) Code/Resuscitation (03/11/22 10:42) Initiate Admission Nursing Pro .admission (03/11/22 10:42) Iron Test (Fe) (03/11/22 10:42) General/Regular (03/11/22 Lunch) Admission Arrival Bed Request (03/11/22 11:31) Patient Visit (03/11/22 ) Speech Sound Lang Comp (03/11/22 ) Treat. Speech/Lang/Voice (03/11/22 ) Patient Visit (03/11/22 ) Pt Eval Low Complexity (03/11/22 ) Functional Activities, Ea 15 (03/11/22 ) Dressing Order (Intervention) DAILY (03/11/22 17:42) Incentive Spirometry (Nursing) Q2H (03/11/22 17:42) General/Regular (03/11/22 Dinner) Albuterol Pre-Mix Nebs (Rt) (Proventil (03/11/22 17:45) Aspirin Enteric Coated Tablet (Ecotrin T (03/12/22 09:00) Docusate Sodium Capsule (Colace Capsule) (03/11/22 21:00) Melatonin Tablet (Melatonin Tablet) (03/11/22 17:45) Polyethylene Glycol Powder Pkt (Miralax (03/11/22 17:45) Therapeutic Multivitamin Tab (Vitamins, (03/12/22 07:00) Antacid Suspension (Mylanta Suspension (03/11/22 17:45) Sennosides Tablet (Senokot Tablet) (03/11/22 21:00) Acetaminophen Tablet/Caplet (Tylenol T (03/11/22 17:45) Ondansetron Injection (Zofran Injectio (03/11/22 17:45) Ondansetron Oral Dissolve Tab (Zofran (03/11/22 17:45) Clonazepam Tablet (Klonopin Tablet) (03/11/22 21:00) Diphenhydramine Injection (Benadryl Inje (03/11/22 17:45) Morphine Injection (Morphine Injection (03/11/22 17:45) Oxycodone/Apap 5/325mg Tablet (Percocet (03/11/22 17:45) Consult Orthopedic Surgery (03/11/22 17:42) Svn Small Volume Nebulizer (03/11/22 17:42) Catheter(Urinary) Discontinue (03/11/22 17:42) Iv Convert To Heplock (Order) (03/11/22 17:42) Enoxaparin Injection (Lovenox Injection) (03/12/22 08:00) Patient Visit (03/12/22 ) Exercise Therap, Ea 15 Min (03/12/22 ) Gait Training, Ea 15 Min (03/12/22 ) Functional Activities, Ea 15 (03/12/22 ) Patient Visit (03/12/22 ) Therapeutic, Group (03/12/22 ) Rehab Nursing Orders: Ongoing Assess. of Function Status, Bladder Management, Bladder Scan, Bladder Training, Bowel Management, Bowel Training, Disease Management & Educaiton, DVT Prophylaxis, Fall Prevention, Fluid/Electrolyte/Nu trition Mgmt, Infection Prevention, Medication Management & Education, Management of Risks & Complications, Management of Skin Intergrity, Nutrition Management, Pain Management, Patient/Family Support, Safety Management, Weight Bearing Precaution, Wound Management Intensity of Therapy to be met Patient to be seen: Min.3h per day/5 of 7d PT IPOC Problem List: Activity Tolerance, Functional Strength, Safety, Balance, Gait, Transfer, Bed Mobility, ROM Treatment Plan: Continue Plan of Care Bed Mobility, Education, Functional Activity Fercho, Functional Strength, Group Therapy, Gait, Safety, Therapeutic Exercise, Transfers Treatment Duration: April 01, 2022 Frequency: At least 5 of 7 days/Wk (IRF) Estimated Hrs Per Day: 1.5 hours per day OT IPOC Problems: Decreased Activ Tolerance, Decreased Safety Aware, Decreased UE Strength, Impaired Funct Balance, Impaired I ADL's, Impaired Self-Care Skills OT Treatment, Training and Edu: Yes Plan of Care: ADL Retraining, Functional Mobility, Group Exercise/Act as Ind, UE Funct Exercise/Act Treatment Duration: Mar 22, 2022 Frequency: At least 5 of 7 days/Wk (IRF) Estimated Hrs Per Day: 1.[address] IPOC Speech Therapy Treatment Plan: Discontinue ST Treatment Duration: Mar 11, 2022 Frequency: 1 time per week Estimated Hrs Per Day: .5 hour per day Collar Tacker/Case Mgmt Collar Tacker/Case Managemen: Discharge Planning Dietitian/Porcelain Enamel Laborer Dietitian/Porcelain Enamel Laborer to monitor nutritional status and make changes and/or recommendations as needed and work with speech pathology on dietary upgrades as the occur. Physician IPOC Medical Issues being managed closely and that require the 24 hour availability of a physician: Patient will require close monitoring due to recent hip fracture with new hypoxia along with postop acute blood loss anemia and will need close monitoring for any decompensation Medical Issues: Bowel/Bladder Function, DVT Prophylaxis, Falls Precautions, Fluid/Electrolyte/Nutrition Balance, Infection Protection, Pain Management, Weight Bearing Precautions, Wound Care Brief Synthesis of Preadmission Screen, Post-Admission Evaluation, and Therapy Evaluations: PT and OT will focus on regaining function with use of assistive devices in order to increase independence in ADLs to return home Medical Prognosis: Good Anticipated Length of Stay: 7 days CHITRA NAIK DO Mar 12, 2022 06:11
--- NOTE | 2022-03-12 06:11 | PM&R Progress Note ---
Subjective HPI/CC On Admission Date Seen by Provider: Mar 12, 2022 Time Seen by Provider: 09:30 Subjective/Events-last exam 03/12/22: Pt is having a better day 2L of oxygen required last night IS ordered Voiding well since catheter removed Checked meds and labs Hemoglobin was 10 Review of Systems Musculoskeletal: leg pain Objective Exam Vital Signs Vital Signs Date Time Temp Pulse Resp B/P (MAP) Pulse Ox O2 Delivery O2 Flow Rate FiO2 03/12/22 20:48 92 Room Air 03/12/22 19:44 37.4 106 18 116/56 (76) 03/12/22 19:11 2.00 Capillary Refill : General Appearance: No Apparent Distress, WD/WN, Chronically ill HEENT: PERRL/EOMI, Normal ENT Inspection, Pharynx Normal Neck: Full Range of Motion, Normal Inspection, Non Tender, Supple, Carotid Bruit Respiratory: Chest Non Tender, Lungs Clear, Normal Breath Sounds, No Accessory Muscle Use, No Respiratory Distress Cardiovascular: Regular Rate, Rhythm, No Edema, No Gallop, No JVD, No Murmur, Normal Peripheral Pulses Gastrointestinal: Normal Bowel Sounds, No Organomegaly, No Pulsatile Mass, Non Tender, Soft Back: Normal Inspection, No CVA Tenderness, No Vertebral Tenderness Extremity: Normal Capillary Refill, Normal Inspection, Normal Range of Motion (Except postop leg), Non Tender, No Calf Tenderness, No Pedal Edema Neurologic/Psychiatric: Alert, Oriented x3, No Motor/Sensory Deficits, Normal Mood/Affect, Abnormal Gait, Motor Weakness (Generalized) Skin: Normal Color, Warm/Dry Lymphatic: No Adenopathy Results/Procedures Lab Laboratory Tests 03/12/22 05:45 Patient resulted labs reviewed. FIM Transfers Therapy Code Descriptions/Definitions Functional [place] Measure: 0=Not Assessed/NA 4=Minimal Assistance 1=Total Assistance 5=Supervision or Setup 2=Maximal Assistance 6=Modified [place] 3=Moderate Assistance 7=Complete IndependenceSCALE: Activities may be completed with or without assistive devices. 8-Aymuqwbiyn-lewympr completes the activity by him/herself with no assistance from a helper. 5-Set-up or Clean-up Assistance-helper sets up or cleans up; patient completes activity. [place] assists only prior to or following the activity. 4-Supervision or Touching Assistance-helper provides verbal cues and/or touch ing/steadying and/or contact guard assistance as patient completes activity. Assistance may be provided throughout the activity or intermittently. 3-Partial/Moderate Assistance-helper does LESS THAN HALF the effort. [place] lifts, holds or supports trunk or limbs, but provides less than half the effort. 2-Substantial/Maximal Assistance-helper does MORE THAN HALF the effort. [place] lifts or holds trunk or limbs and provides more than half the effort. 3-Cdgpjehbg-ckeraq does ALL the effort. Patient does none of the effort to complete the activity. Or, the assistance of 2 or more helpers is required for the patient to complete the activity. If activity was not attempted, code reason: 7-Patient Refused. 9-Not Applicable-not attempted and the patient did not perform the activity bef ore the current illness, exacerbation or injury. 10-Not Attempted due to Environmental Limitations-(lack of equipment, weather restraints, etc.). 88-Not Attempted due to Medical Conditions or Safety Concerns. Roll Left to Right (QC): 4 (CGA) Sit to Lying (QC): 4 (CGA) Sit to Stand (QC): 3 Chair/Stu-dl-Yhyhf Xfer(QC): 4 (CGA) Car Transfer (QC): 4 (CGA) Gait Training Does the Patient Walk?: Yes Walk 10 feet (QC): 4 (CGA) Walk 50 ft with 2 Turns(QC): 4 (CGA) Walk 150 ft (QC): 88 Walking 10ft/uneven surface-QC: 4 (CGA) Gait Assistive Device: FWW Wheelchair Training Does the Pt Use a Wheelchair?: No Wheel 50 ft with 2 turns (QC): 9 Wheel 150 ft (QC): 9 Type of Wheelchair: N/A Stair Training 1 Step (curb) (QC): 88 4 Steps (QC): 88 12 Steps (QC): 88 Balance Picking up an Object (QC): 4 ADL-Treatment Eating (QC): 6 Oral Hygiene (QC): 4 Shower/Bathe Self (QC): 88 Upper Body Dressing (QC): 3 Lower Body Dressing (QC): 3 On/Off Footwear (QC): 3 Toileting Hygiene (QC): 1 (dietrich catheter) Assessment/Plan Assessment and Plan Assess & Plan/Chief Complaint Assessment: Status post left hip fracture repair Postop anemia acute blood loss type Insomnia Anxiety Plan: Inpatient rehab protocol Monitor hemoglobin May need iron infusion 03/12/2022: Supportive care Monitor hypoxia (1) Closed left hip fracture Status: Acute CHITRA NAIK DO Mar 12, 2022 06:11
[2022-03-12 06:12] LABS: TOTAL PROTEIN 5.9 GM/DL (6.4-8.2)
[2022-03-12 06:13] LABS: BILIRUBIN,TOTAL 1.1 MG/DL (0.1-1.0)
[2022-03-12] MEDS: MULTIVIT W/MINERALS TAB (THERAGRAN M) PO SCH (06:14)
[2022-03-12] MEDS: oxyCODONE/APAP 5/325MG (PERCOCET 5) TABLET PO PRN ×2 (06:14→20:46)
[2022-03-12 06:15] LABS: CREATININE SERUM 0.63 MG/DL (0.60-1.30)
[2022-03-12 07:24] VITALS: BP 103/54
[2022-03-12] MEDS: DOCUSATE SODIUM 100 MG (COLACE) CAP PO SCH ×2 (08:26→20:45)
[2022-03-12] MEDS: ASPIRIN E.C. 81 MG (ECOTRIN) TAB PO SCH (08:27)
[2022-03-12] MEDS: SENNOSIDES 8.6 MG (SENOKOT) TAB PO SCH ×2 (08:27→20:47)
[2022-03-12] MEDS: ENOXAPARIN 40 MG/0.4 ML (LOVENOX) SYR SC SCH (08:28)
--- NOTE | 2022-03-12 08:57 | Physical Therapy Daily Note ---
PT Daily Note-Current Subjective Pt agrees to PT. Pt states she got pain medication at 7:30 so she doesn't have much pain this morning. Mental Status Patient Orientation: Normal For Age Attachments: Oxygen, IV Transfers SCALE: Activities may be completed with or without assistive devices. 7-Wwfbsloyiq-fvtsiwx completes the activity by him/herself with no assistance from a helper. 5-Set-up or Clean-up Assistance-helper sets up or cleans up; patient completes activity. [place] assists only prior to or following the activity. 4-Supervision or Touching Assistance-helper provides verbal cues and/or touching/steadying and/or contact guard assistance as patient completes activity. Assistance may be provided throughout the activity or intermittently. 3-Partial/Moderate Assistance-helper does LESS THAN HALF the effort. [place] lifts, holds or supports trunk or limbs, but provides less than half the effort. 2-Substantial/Maximal Assistance-helper does MORE THAN HALF the effort. [place] lifts or holds trunk or limbs and provides more than half the effort. 0-Nylykmnnx-wbskjd does ALL the effort. Patient does none of the effort to complete the activity. Or, the assistance of 2 or more helpers is required for the patient to complete the activity. If activity was not attempted, code reason: 7-Patient Refused. 9-Not Applicable-not attempted and the patient did not perform the activity before the current illness, exacerbation or injury. 10-Not Attempted due to Environmental Limitations-(lack of equipment, weather restraints, etc.). 88-Not Attempted due to Medical Conditions or Safety Concerns. Sit to Stand (QC): 4 Weight Bearing Left Lower Extremity: Left Weight Bearing/Tolerated Gait Training Does the Patient Walk?: Yes Distance: 150' x2 Walk 10 feet (QC): 4 Walk 50 ft with 2 Turns(QC): 4 Walk 150 ft (QC): 4 Gait Assistive Device: FWW Exercises Seated Therapy Exercises: Ankle pumps, Long arc quads, Hip abd/add, Glut set Seated Reps: 12 NuStep Minutes: 13 NuStep Workload: 1 Treatments Pt sitting upright in chair upon arrival of PT. Pt completes seated EX then amb. in hallway to gym. Patients O2 stats taken when sitting in gym, O2 was 99%. Pt completes NuStep then amb. back to room. All needs met. Call light in hand. Assessment Current Status: Good Progress Pt states she is less "wobbly" today and does not have as much pain as yesterday. PT Short Term Goals Short Term Goals Time Frame: Mar 18, 2022 Roll Left & Right: 4 (SBA) Sit to lyin (SBA) Lying to sitting on side of be: 4 (CGA) Sit to stand: 4 (CGA) Chair/uzr-bn-kteji transfer: 4 (SBA) Toilet transfer: 4 (SBA) Car transfer: 4 (SBA) Walk 150 feet: 4 (CGA) 1 step (curb): 4 (CGA) PT Correction Goals Vision Specialist Goals PT Correction Goals Time Frame: April 01, 2022 Roll Left & Right (QC): 6 Sit to Lying (QC): 6 Lying-Sitting on Side/Bed(QC): 6 Sit to Stand (QC): 6 Chair/Bit-fv-Glbxp Xfer(QC): 6 Toilet Transfer (QC): 6 Car Transfer (QC): 6 Does the Patient Walk: Yes Walk 10 feet (QC): 6 Walk 50ft with 2 Turns (QC): 6 Walk 150 ft (QC): 6 Walking 10ft on Uneven Surface: 6 1 Step (curb) (QC): 6 4 Steps (QC): 6 12 Steps (QC): 88 Picking up an Object (QC): 6 Wheel 50 feet with 2 turns (QC: 9 Wheel 150 feet: 9 PT Plan Treatment/Plan Treatment Plan: Continue Plan of Care Treatment Plan: Bed Mobility, Education, Functional Activity [place], Functional Strength, Group Therapy, Gait, Safety, Therapeutic Exercise, Transfers Treatment Duration: April 01, 2022 Frequency: At least 5 of 7 days/Wk (IRF) Estimated Hrs Per Day: 1.5 hours per day Patient and/or Family Agrees t: Yes Safety Risks/Education Patient Education: Gait Training, Reviewed Precautions, Correct Positioning, Safety Issues Teaching Recipient: Patient Teaching Methods: Demonstration, Discussion Response to Teaching: Verbalize Understanding, Return Demonstration Time/GCodes Time In: 800 Time Out: 900 Total Billed Treatment Time: 60 Total Billed Treatment 1, EX (30 min), GT (15 min), FA (15 min) GLENDA SHEN LEAD 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
[2022-03-12] MEDS: polyethylene glycoL POWDER 17 GM (MIRALAX) PACK PO SCH ×2 (10:17→20:47)
--- NOTE | 2022-03-12 11:25 | Occupational Ther Daily Note ---
OT Current Status-Daily Note Subjective Pt alert, sitting in recliner visiting with family when ARREAGA entered room. Pt agreed to therapy. No c/o pain reported. Mental Status/Objective Patient Orientation: Person, Place, Time, Situation Attachments: IV ADL-Treatment Pt requested to complete shower at this time. Pt sit-stand from recliner to FWW with CGA. Pt ambulated to bathroom and transferred to shower bench with CGA and vc for proper sequence and placement of BUE. While still in standing, pt required Mod A to doff LB dressing. Pt then doffed hospital gown and required assist to doff socks. Pt completed shower, was able to cleanse UB, chest, abdomen, upper legs, and required long handled sponge to cleanse lower legs. Pt required Mod A to cleanse BLE due to maintaining hip precautions. Pt sit-stand from shower bench using grab bars to cleanse jorge area and buttocks with CGA. Post shower, SPT from shower bench to chair. After set up, pt donned UB dressing. Pt threaded BLE through LB dressing using aix architect, required min A to bring foot out of R LE. After set up, pt used sock aid to don socks. Pt then needed bandage changed, increase time taken. Pt sit-stand from chair to FWW with CGA. Pt then completed basic grooming task of combing hair while standing at sink with CGA. Pt then ambulated back to room and transferred to recliner. After session, pt sitting in recliner. All needs met and call light in reach. Therapy Code Descriptions/Definitions Functional [place] Measure: 0=Not Assessed/NA 4=Minimal Assistance 1=Total Assistance 5=Supervision or Setup 2=Maximal Assistance 6=Modified [place] 3=Moderate Assistance 7=Complete IndependenceSCALE: Activities may be completed with or without assistive devices. 1-Vkikrqrytb-bxhzqfk completes the activity by him/herself with no assistance from a helper. 5-Set-up or Clean-up Assistance-helper sets up or cleans up; patient completes activity. [place] assists only prior to or following the activity. 4-Supervision or Touching Assistance-helper provides verbal cues and/or touching/steadying and/or contact guard assistance as patient completes activity. Assistance may be provided throughout the activity or intermittently. 3-Partial/Moderate Assistance-helper does LESS THAN HALF the effort. [place] lifts, holds or supports trunk or limbs, but provides less than half the effort. 2-Substantial/Maximal Assistance-helper does MORE THAN HALF the effort. [place] lifts or holds trunk or limbs and provides more than half the effort. 1-Rclgtxlgp-qirijl does ALL the effort. Patient does none of the effort to complete the activity. Or, the assistance of 2 or more helpers is required for the patient to complete the activity. If activity was not attempted, code reason: 7-Patient Refused. 9-Not Applicable-not attempted and the patient did not perform the activity befo re the current illness, exacerbation or injury. 10-Not Attempted due to Environmental Limitations-(lack of equipment, weather re straints, etc.). 88-Not Attempted due to Medical Conditions or Safety Concerns. Bathing Location: L Arm, R Arm, L Upper Leg, R Upper Leg, Chest, Abdomen, Buttocks, Perineal Area Shower/Bathe Self (QC): 3 Upper Body Dressing (QC): 5 Lower Body Dressing (QC): 3 On/Off Footwear: 3 Education OT Patient Education: Correct positioning, Modified ADL techniques, Purpose of tx/functional activities, Reviewed precautions, Transfer techniques, Use of adapted equipment Teaching Recipient: Patient Teaching Methods: Demonstration Response to Teaching: Verbalize Understanding, Return Demonstration OT Short Term Goals Short Term Goals Time Frame: Mar 18, 2022 Eatin Oral hygiene: 5 Toileting hygiene: 4 Shower/bathe self: 3 Upper body dressin Lower body dressin Putting on/taking off footwear: 4 OT Testing Coordinator Goals Usp Goals Time Frame: Mar 22, 2022 Eating (QC): 6 Oral Hygiene (QC): 6 Toileting Hygiene (QC): 6 Shower/Bathe Self (QC): 6 Upper Body Dressing (QC): 6 Lower Body Dressing (QC): 6 On/Off Footwear (QC): 6 1=Demonstrate adherence to instructed precautions during ADL tasks. 2=Patient will verbalize/demonstrate understanding of assistive devices/modifications for ADL. 3=Patient will improve strength/tolerance for activity to enable patient to perform ADL's. OT Education/Plan Problem List/Assessment Assessment: Decreased Activ Tolerance, Decreased UE Strength, Impaired I ADL's, Impaired Self-Care Skills Discharge Recommendations Plan/Recommendations: Continue POC Treatment Plan/Plan of Care Patient would benefit from OT for education, treatment and training to promote independence in ADL's, mobility, safety and/or upper extremity function for ADL's. Plan of Care: ADL Retraining, Functional Mobility, Group Exercise/Act as Ind, UE Funct Exercise/Act Treatment Duration: Mar 22, 2022 Frequency: At least 5 of 7 days/Wk (IRF) Estimated Hrs Per Day: 1.5 hours per day Agreement: Yes Rehab Potential: Good Time/GCodes Start Time: 10:00 Stop Time: 11:00 Total Time Billed (hr/min): 60 Billed Treatment Time 1 visit- ADL 4 (60 mins) JESSE GOFF Mar 12, 2022 11:25
--- NOTE | 2022-03-12 11:43 | Progress Note ---
Standard Progress Note Progress Notes/Assess & Plan Date Seen by a Provider: Mar 12, 2022 Time Seen by a Provider: 11:22 Progress/Assessment & Plan no complaints Vital Signs Date Time Temp Pulse Resp B/P (MAP) Pulse Ox O2 Delivery O2 Flow Rate FiO2 03/12/22 11:11 36.3 03/12/22 11:06 94 Room Air 03/12/22 09:17 95 Nasal Cannula 2.00 03/12/22 07:24 36.8 94 16 103/54 (70) 95 Room Air 03/11/22 21:45 36.6 03/11/22 21:40 36.6 03/11/22 20:50 92 Nasal Cannula 2.00 03/11/22 20:47 37.8 03/11/22 19:31 37.8 119 20 113/66 (82) 92 Nasal Cannula 2.00 03/11/22 12:24 35.6 95 18 108/56 (73) 94 Room Air 03/11/22 11:49 98 Nasal Cannula 2.00 I & O 03/12/22 07:00 Intake Total 1200 ml Output Total 1575 ml Balance -375 ml Laboratory Tests Test 03/12/22 05:45 Range/Units White Blood Count 8.3 4.3-11.0 10^3/uL Red Blood Count 3.22 L 3.80-5.11 10^6/uL Hemoglobin 10.1 L 11.5-16.0 g/dL Hematocrit 30 L 35-52 % Mean Corpuscular Volume 94 80-99 fL Mean Corpuscular Hemoglobin 31 25-34 pg Mean Corpuscular Hemoglobin Concent 33 32-36 g/dL Red Cell Distribution Width 13.4 10.0-14.5 % Platelet Count 177 130-400 10^3/uL Mean Platelet Volume 10.6 9.0-12.2 fL Immature Granulocyte % (Auto) 1 % Neutrophils (%) (Auto) 65 42-75 % Lymphocytes (%) (Auto) 21 12-44 % Monocytes (%) (Auto) 8 0-12 % Eosinophils (%) (Auto) 5 0-10 % Basophils (%) (Auto) 1 0-10 % Neutrophils # (Auto) 5.4 1.8-7.8 10^3/uL Lymphocytes # (Auto) 1.8 1.0-4.0 10^3/uL Monocytes # (Auto) 0.7 0.0-1.0 10^3/uL Eosinophils # (Auto) 0.4 H 0.0-0.3 10^3/uL Basophils # (Auto) 0.1 0.0-0.1 10^3/uL Immature Granulocyte # (Auto) 0.0 0.0-0.1 10^3/uL Sodium Level 141 135-145 MMOL/L Potassium Level 3.9 3.6-5.0 MMOL/L Chloride Level 105 98-107 MMOL/L Carbon Dioxide Level 23 21-32 MMOL/L Anion Gap 13 5-14 MMOL/L Blood Urea Nitrogen 8 7-18 MG/DL Creatinine 0.63 0.60-1.30 MG/DL Estimat Glomerular Filtration Rate 94 BUN/Creatinine Ratio 13 Glucose Level 94 70-105 MG/DL Calcium Level 8.7 8.5-10.1 MG/DL Corrected Calcium 9.1 8.5-10.1 MG/DL Total Bilirubin 1.1 H 0.1-1.0 MG/DL Aspartate Amino Transf (AST/SGOT) 31 5-34 U/L Alanine Aminotransferase (ALT/SGPT) 19 0-55 U/L Alkaline Phosphatase 65 40-136 U/L Total Protein 5.9 L 6.4-8.2 GM/DL Albumin 3.5 3.2-4.5 GM/DL left hip incision clean and dry. No calf tenderness. Neg Khushbu's s/p L hip bipolar PT/OT ALVINO NORRIS MD Mar 12, 2022 11:43
--- NOTE | 2022-03-12 14:46 | Therapy Group Daily Note ---
Therapy Daily Group Note Patient Education Topic Exercises, Other List Below (memory strategies, car and chair TRFs, ARU ) Exercises LE Seated Exercise, Sit to/from Stand, UE Exercise Session Ratio (pt:therapist): 4:1 Goal of Session: Education on ARU Expectations, Memory Strategies, UE/LE Strengthing, Other (list) (core ex) Goal Met for this Session: Yes Pt Benefit of Group: Contributions to Others, Increased Functional Strength, Improved Cognition, Socialization Other/Notes Pt. participated in group session this date. Pt. ambulated to from group with FWW and SBA. Pt. was social, introducing herself and visiting with others , pts were educated regarding ARU and its requirements and practices . Pts. participat ed in seated U&L extremity exercises using 1 and 2# weights as well as seated core exercises. memory game and strategies were done utilizing images and challenging patients to remember their placement after they were turned over. Pts were educated and demonstrations we done for sit to stand from chair with arms , car TRFs, as well as curb step up down. Pt. back to room with servin at hand after group. Start Time: 13:00 Stop Time: 14:00 Total Billed Treatment Time: 60 Total Billed Treatment 1,GRP KANU BOLTON WELDER GAS Mar 12, 2022 14:46
[2022-03-12 19:44] VITALS: BP 116/56
[2022-03-12] MEDS: clonazePAM 0.5 MG (KlonoPIN) TAB PO SCH (20:46)
[2022-03-13] MEDS: MULTIVIT W/MINERALS TAB (THERAGRAN M) PO SCH (06:14)
[2022-03-13] MEDS: oxyCODONE/APAP 5/325MG (PERCOCET 5) TABLET PO PRN ×2 (06:15→20:39)
--- NOTE | 2022-03-13 06:18 | PM&R Progress Note ---
Subjective HPI/CC On Admission Date Seen by Provider: Mar 13, 2022 Time Seen by Provider: 09:30 Subjective/Events-last exam 03/13/2022: Patient doing a lot better Low-grade temperature noted Voiding well Hypoxia noted at night so we will monitor that closely Insomnia may certainly be some sort of nocturnal hypoxia or other sleep disorder 03/12/22: Pt is having a better day 2L of oxygen required last night IS ordered Voiding well since catheter removed Checked meds and labs Hemoglobin was 10 Review of Systems General: Fatigue, Malaise Musculoskeletal: leg pain Neurological: Weakness Objective Exam Vital Signs Vital Signs Date Time Temp Pulse Resp B/P (MAP) Pulse Ox O2 Delivery O2 Flow Rate FiO2 03/13/22 22:45 94 Nasal Cannula 2.00 03/13/22 20:05 37.0 106 20 119/56 (77) Capillary Refill : General Appearance: No Apparent Distress, WD/WN, Chronically ill HEENT: PERRL/EOMI, Normal ENT Inspection, Pharynx Normal Neck: Full Range of Motion, Normal Inspection, Non Tender, Supple, Carotid Bruit Respiratory: Chest Non Tender, Lungs Clear, Normal Breath Sounds, No Accessory Muscle Use, No Respiratory Distress Cardiovascular: Regular Rate, Rhythm, No Edema, No Gallop, No JVD, No Murmur, Normal Peripheral Pulses Gastrointestinal: Normal Bowel Sounds, No Organomegaly, No Pulsatile Mass, Non Tender, Soft Back: Normal Inspection, No CVA Tenderness, No Vertebral Tenderness Extremity: Normal Capillary Refill, Normal Inspection, Normal Range of Motion (Except postop leg), Non Tender, No Calf Tenderness, No Pedal Edema Neurologic/Psychiatric: Alert, Oriented x3, No Motor/Sensory Deficits, Normal M ood/Affect, Abnormal Gait, Motor Weakness (Generalized) Skin: Normal Color, Warm/Dry Lymphatic: No Adenopathy Results/Procedures Lab Patient resulted labs reviewed. FIM Transfers Therapy Code Descriptions/Definitions Functional [place] Measure: 0=Not Assessed/NA 4=Minimal Assistance 1=Total Assistance 5=Supervision or Setup 2=Maximal Assistance 6=Modified [place] 3=Moderate Assistance 7=Complete IndependenceSCALE: Activities may be completed with or without assistive devices. 4-Nfeyyvnrwx-wjbjvqf completes the activity by him/herself with no assistance from a helper. 5-Set-up or Clean-up Assistance-helper sets up or cleans up; patient completes activity. [place] assists only prior to or following the activity. 4-Supervision or Touching Assistance-helper provides verbal cues and/or touching/steadying and/or contact guard assistance as patient completes activity. Assistance may be provided throughout the activity or intermittently. 3-Partial/Moderate Assistance-helper does LESS THAN HALF the effort. [place] lifts, holds or supports trunk or limbs, but provides less than half the effort. 2-Substantial/Maximal Assistance-helper does MORE THAN HALF the effort. [place] lifts or holds trunk or limbs and provides more than half the effort. 5-Afsihwyra-wxxzpn does ALL the effort. Patient does none of the effort to complete the activity. Or, the assistance of 2 or more helpers is required for the patient to complete the activity. If activity was not attempted, code reason: 7-Patient Refused. 9-Not Applicable-not attempted and the patient did not perform the activity before the current illness, exacerbation or injury. 10-Not Attempted due to Environmental Limitations-(lack of equipment, weather restraints, etc.). 88-Not Attempted due to Medical Conditions or Safety Concerns. Roll Left to Right (QC): 4 (CGA) Sit to Lying (QC): 4 (CGA) Sit to Stand (QC): 4 Chair/Spg-fj-Fhpcx Xfer(QC): 4 (CGA) Car Transfer (QC): 4 (CGA) Gait Training Does the Patient Walk?: Yes Distance: 150' x2 Walk 10 feet (QC): 4 Walk 50 ft with 2 Turns(QC): 4 Walk 150 ft (QC): 4 Walking 10ft/uneven surface-QC: 4 (CGA) Gait Assistive Device: FWW Wheelchair Training Does the Pt Use a Wheelchair?: No Wheel 50 ft with 2 turns (QC): 9 Wheel 150 ft (QC): 9 Type of Wheelchair: N/A Stair Training 1 Step (curb) (QC): 88 4 Steps (QC): 88 12 Steps (QC): 88 Balance Picking up an Object (QC): 4 ADL-Treatment Eating (QC): 6 Oral Hygiene (QC): 4 Bathing Location: L Arm, R Arm, L Upper Leg, R Upper Leg, Chest, Abdomen, Buttocks, Perineal Area Shower/Bathe Self (QC): 3 Upper Body Dressing (QC): 5 Lower Body Dressing (QC): 3 On/Off Footwear (QC): 3 Toileting Hygiene (QC): 1 (dietrich catheter) Assessment/Plan Assessment and Plan Assess & Plan/Chief Complaint Assessment: Status post left hip fracture repair Postop anemia acute blood loss type Insomnia Anxiety Plan: Inpatient rehab protocol Monitor hemoglobin May need iron infusion 03/12/2022: Supportive care Monitor hypoxia 03/13/2022: Supportive care Monitor oxygen at hs (1) Closed left hip fracture Status: Acute CHITRA NAIK DO Mar 13, 2022 06:17
--- NOTE | 2022-03-13 07:49 | Progress Note ---
Standard Progress Note Progress Notes/Assess & Plan Date Seen by a Provider: Mar 13, 2022 Time Seen by a Provider: 07:48 Progress/Assessment & Plan no complaints Vital Signs Date Time Temp Pulse Resp B/P (MAP) Pulse Ox O2 Delivery O2 Flow Rate FiO2 03/12/22 11:11 36.3 03/12/22 11:06 94 Room Air 03/12/22 09:17 95 Nasal Cannula 2.00 03/12/22 07:24 36.8 94 16 103/54 (70) 95 Room Air 03/11/22 21:45 36.6 03/11/22 21:40 36.6 03/11/22 20:50 92 Nasal Cannula 2.00 03/11/22 20:47 37.8 03/11/22 19:31 37.8 119 20 113/66 (82) 92 Nasal Cannula 2.00 03/11/22 12:24 35.6 95 18 108/56 (73) 94 Room Air 03/11/22 11:49 98 Nasal Cannula 2.00 I & O 03/12/22 07:00 Intake Total 1200 ml Output Total 1575 ml Balance -375 ml Laboratory Tests Test 03/12/22 05:45 Range/Units White Blood Count 8.3 4.3-11.0 10^3/uL Red Blood Count 3.22 L 3.80-5.11 10^6/uL Hemoglobin 10.1 L 11.5-16.0 g/dL Hematocrit 30 L 35-52 % Mean Corpuscular Volume 94 80-99 fL Mean Corpuscular Hemoglobin 31 25-34 pg Mean Corpuscular Hemoglobin Concent 33 32-36 g/dL Red Cell Distribution Width 13.4 10.0-14.5 % Platelet Count 177 130-400 10^3/uL Mean Platelet Volume 10.6 9.0-12.2 fL Immature Granulocyte % (Auto) 1 % Neutrophils (%) (Auto) 65 42-75 % Lymphocytes (%) (Auto) 21 12-44 % Monocytes (%) (Auto) 8 0-12 % Eosinophils (%) (Auto) 5 0-10 % Basophils (%) (Auto) 1 0-10 % Neutrophils # (Auto) 5.4 1.8-7.8 10^3/uL Lymphocytes # (Auto) 1.8 1.0-4.0 10^3/uL Monocytes # (Auto) 0.7 0.0-1.0 10^3/uL Eosinophils # (Auto) 0.4 H 0.0-0.3 10^3/uL Basophils # (Auto) 0.1 0.0-0.1 10^3/uL Immature Granulocyte # (Auto) 0.0 0.0-0.1 10^3/uL Sodium Level 141 135-145 MMOL/L Potassium Level 3.9 3.6-5.0 MMOL/L Chloride Level 105 98-107 MMOL/L Carbon Dioxide Level 23 21-32 MMOL/L Anion Gap 13 5-14 MMOL/L Blood Urea Nitrogen 8 7-18 MG/DL Creatinine 0.63 0.60-1.30 MG/DL Estimat Glomerular Filtration Rate 94 BUN/Creatinine Ratio 13 Glucose Level 94 70-105 MG/DL Calcium Level 8.7 8.5-10.1 MG/DL Corrected Calcium 9.1 8.5-10.1 MG/DL Total Bilirubin 1.1 H 0.1-1.0 MG/DL Aspartate Amino Transf (AST/SGOT) 31 5-34 U/L Alanine Aminotransferase (ALT/SGPT) 19 0-55 U/L Alkaline Phosphatase 65 40-136 U/L Total Protein 5.9 L 6.4-8.2 GM/DL Albumin 3.5 3.2-4.5 GM/DL left hip incision clean and dry. No calf tenderness. Neg Khushbu's s/p L hip bipolar PT/OT Final Diagnosis no complaints sitting at bedside doing exercises LLE--able to perform hip flexion s/p L hip bipolar PT/OT i will be out for the next week ALVINO Huff MD Mar 13, 2022 07:49
[2022-03-13 07:53] VITALS: BP 110/56
[2022-03-13] MEDS: SENNOSIDES 8.6 MG (SENOKOT) TAB PO SCH ×2 (09:00→20:46)
[2022-03-13] MEDS: polyethylene glycoL POWDER 17 GM (MIRALAX) PACK PO SCH ×2 (09:00→20:46)
--- NOTE | 2022-03-13 09:48 | Physical Therapy Daily Note ---
PT Daily Note-Current Subjective Pt agrees to PT. Pt says her hip is more stiff today but not really painful and does not rate it. Mental Status Patient Orientation: Person, Place, Time, Situation Attachments: IV Transfers SCALE: Activities may be completed with or without assistive devices. 4-Wgzacmrkjn-endfuhn completes the activity by him/herself with no assistance from a helper. 5-Set-up or Clean-up Assistance-helper sets up or cleans up; patient completes activity. [place] assists only prior to or following the activity. 4-Supervision or Touching Assistance-helper provides verbal cues and/or touching/steadying and/or contact guard assistance as patient completes activity. Assistance may be provided throughout the activity or intermittently. 3-Partial/Moderate Assistance-helper does LESS THAN HALF the effort. [place] lifts, holds or supports trunk or limbs, but provides less than half the effort. 2-Substantial/Maximal Assistance-helper does MORE THAN HALF the effort. [place] lifts or holds trunk or limbs and provides more than half the effort. 4-Nfvqfumgg-vlzyos does ALL the effort. Patient does none of the effort to complete the activity. Or, the assistance of 2 or more helpers is required for the patient to complete the activity. If activity was not attempted, code reason: 7-Patient Refused. 9-Not Applicable-not attempted and the patient did not perform the activity be fore the current illness, exacerbation or injury. 10-Not Attempted due to Environmental Limitations-(lack of equipment, weather restraints, etc.). 88-Not Attempted due to Medical Conditions or Safety Concerns. Sit to Stand (QC): 4 Weight Bearing Left Lower Extremity: Left Weight Bearing/Tolerated Gait Training Does the Patient Walk?: Yes Distance: 150' x2 Walk 10 feet (QC): 4 Walk 50 ft with 2 Turns(QC): 4 Walk 150 ft (QC): 4 Gait Persons Needed: 1 Gait Assistive Device: FWW Wheelchair Training Does the Pt Use a Wheelchair?: No Exercises Seated Therapy Exercises: Ankle pumps, Long arc quads, Hip flexion, Hip abd/add, Glut set Seated Reps: 12 Standing: Hip Abduction, Heel/toe raises, 3 way Ex=Flex, Abd, Ext, Mini squats, Sit to Stand, Step-ups Standing Reps: 12 NuStep Minutes: 15 NuStep Workload: 1 Treatments Pt sitting upright in chair upon arrival of PT. Pt completes seated EX then amb. to gym to complete standing EX and NuStep. Pt then amb. back to room to use BR and sits back in chair. All needs met, call light in hand. Assessment Current Status: Good Progress Pt is motivated and pushes herself. Pt does not ask for as many rest breaks today. PT Short Term Goals Short Term Goals Time Frame: Mar 18, 2022 Roll Left & Right: 4 (SBA) Sit to lyin (SBA) Lying to sitting on side of be: 4 (CGA) Sit to stand: 4 (CGA) Chair/gvl-tv-loxmj transfer: 4 (SBA) Toilet transfer: 4 (SBA) Car transfer: 4 (SBA) Walk 150 feet: 4 (CGA) 1 step (curb): 4 (CGA) PT Government Gauger Goals Detention Goals PT Detention Goals Time Frame: April 01, 2022 Roll Left & Right (QC): 6 Sit to Lying (QC): 6 Lying-Sitting on Side/Bed(QC): 6 Sit to Stand (QC): 6 Chair/Sde-nh-Eyhdf Xfer(QC): 6 Toilet Transfer (QC): 6 Car Transfer (QC): 6 Does the Patient Walk: Yes Walk 10 feet (QC): 6 Walk 50ft with 2 Turns (QC): 6 Walk 150 ft (QC): 6 Walking 10ft on Uneven Surface: 6 1 Step (curb) (QC): 6 4 Steps (QC): 6 12 Steps (QC): 88 Picking up an Object (QC): 6 Wheel 50 feet with 2 turns (QC: 9 Wheel 150 feet: 9 PT Plan Treatment/Plan Treatment Plan: Continue Plan of Care Treatment Plan: Bed Mobility, Education, Functional Activity Fercho, Functional Strength, Group Therapy, Gait, Safety, Therapeutic Exercise, Transfers Treatment Duration: April 01, 2022 Frequency: At least 5 of 7 days/Wk (IRF) Estimated Hrs Per Day: 1.5 hours per day Patient and/or Family Agrees t: Yes Time/GCodes Time In: 900 Time Out: 1000 Total Billed Treatment Time: 60 Total Billed Treatment 1, EX x3 ( 45 min) GT (15 min) GLENDA SHEN [employer]ER[employer] Mar 13, 2022 09:48
[2022-03-13] MEDS: ASPIRIN E.C. 81 MG (ECOTRIN) TAB PO SCH (10:04)
[2022-03-13] MEDS: DOCUSATE SODIUM 100 MG (COLACE) CAP PO SCH ×2 (10:04→20:46)
[2022-03-13] MEDS: ENOXAPARIN 40 MG/0.4 ML (LOVENOX) SYR SC SCH (10:04)
--- NOTE | 2022-03-13 10:33 | Occupational Ther Daily Note ---
OT Current Status-Daily Note Subjective Pt alert, sitting in recliner. Pt agrees to therapy. No c/o pain. Mental Status/Objective Patient Orientation: Person, Place, Time, Situation Attachments: IV ADL-Treatment Pt declines bathing or dressing. Pt independent with oral care standing at sink, stabilizing with counter. Pt sat in regular chair to doff socks and don socks/shoes. Pt stated that she is getting a shower chair for her walk-in shower at home. Pt stated she will need FWW and lower body drsg AE. ARREAGA educated pt on where to find drsg AE. Pt able to use AE to doff L sock and don L sock/shoe then assist to tie shoes. Pt able to don/doff socks/shoes on R LE while adhering to hip precautions. Therapy Code Descriptions/Definitions Functional [place] Measure: 0=Not Assessed/NA 4=Minimal Assistance 1=Total Assistance 5=Supervision or Setup 2=Maximal Assistance 6=Modified [place] 3=Moderate Assistance 7=Complete IndependenceSCALE: Activities may be completed with or without assistive devices. 9-Zfwirdooew-exxgjhh completes the activity by him/herself with no assistance from a helper. 5-Set-up or Clean-up Assistance-helper sets up or cleans up; patient completes activity. [place] assists only prior to or following the activity. 4-Supervision or Touching Assistance-helper provides verbal cues and/or touching/steadying and/or contact guard assistance as patient completes activity. Assistance may be provided throughout the activity or intermittently. 3-Partial/Moderate Assistance-helper does LESS THAN HALF the effort. [place] lifts, holds or supports trunk or limbs, but provides less than half the effort. 2-Substantial/Maximal Assistance-helper does MORE THAN HALF the effort. [place] lifts or holds trunk or limbs and provides more than half the effort. 2-Brnmjntqa-jlbkny does ALL the effort. Patient does none of the effort to complete the activity. Or, the assistance of 2 or more helpers is required for the patient to complete the activity. If activity was not attempted, code reason: 7-Patient Refused. 9-Not Applicable-not attempted and the patient did not perform the activity before the current illness, exacerbation or injury. 10-Not Attempted due to Environmental Limitations-(lack of equipment, weather restraints, etc.). 88-Not Attempted due to Medical Conditions or Safety Concerns. Eating (QC): 6 Oral Hygiene (QC): 6 On/Off Footwear: 3 (min a) Other Treatment Pt ambulated to therapy gym to complete B UE exercises to increase strength and activity tolerance for daily functional tasks. Skilled instruction for correct technique and modifications were given. Medium/heavy resistance theraband for B UE exercises, 3 sets 10 reps of 6 exercises (2 with theraband, 1 with 2# hand wt). Resistive clothes pins completed 2x's each hand. After session, pt sitting in regular chair with call light/phone in reach. All needs met in room. OT Short Term Goals Short Term Goals Time Frame: Mar 18, 2022 Eatin Oral hygiene: 5 Toileting hygiene: 4 Shower/bathe self: 3 Upper body dressin Lower body dressin Putting on/taking off footwear: 4 OT Fire Control System Installer Goals Fire Control System Installer Goals Time Frame: Mar 22, 2022 Eating (QC): 6 Oral Hygiene (QC): 6 Toileting Hygiene (QC): 6 Shower/Bathe Self (QC): 6 Upper Body Dressing (QC): 6 Lower Body Dressing (QC): 6 On/Off Footwear (QC): 6 1=Demonstrate adherence to instructed precautions during ADL tasks. 2=Patient will verbalize/demonstrate understanding of assistive devices/modifications for ADL. 3=Patient will improve strength/tolerance for activity to enable patient to perform ADL's. OT Education/Plan Problem List/Assessment Assessment: Decreased UE Strength, Impaired Self-Care Skills Discharge Recommendations Plan/Recommendations: Continue POC Treatment Plan/Plan of Care Patient would benefit from OT for education, treatment and training to promote independence in ADL's, mobility, safety and/or upper extremity function for ADL's. Plan of Care: ADL Retraining, Functional Mobility, Group Exercise/Act as Ind, UE Funct Exercise/Act Treatment Duration: Mar 22, 2022 Frequency: At least 5 of 7 days/Wk (IRF) Estimated Hrs Per Day: 1.5 hours per day Agreement: Yes Rehab Potential: Good Time/GCodes Start Time: 07:30 Stop Time: 09:00 Total Time Billed (hr/min): 90 Billed Treatment Time 1 visit-ADL 3 (45 min) EX 3 (45 min) IGOR THOMAS Mar 13, 2022 10:33
--- NOTE | 2022-03-13 11:44 | Physical Therapy Daily Note ---
PT Daily Note-Current Subjective Pt agrees to PT. Pt states that her pain did increase a little while amb. Mental Status Patient Orientation: Person, Place, Time, Situation Attachments: IV Transfers SCALE: Activities may be completed with or without assistive devices. 2-Fxmsisqudq-wwwgile completes the activity by him/herself with no assistance from a helper. 5-Set-up or Clean-up Assistance-helper sets up or cleans up; patient completes activity. [place] assists only prior to or following the activity. 4-Supervision or Touching Assistance-helper provides verbal cues and/or touching/steadying and/or contact guard assistance as patient completes activity. Assistance may be provided throughout the activity or intermittently. 3-Partial/Moderate Assistance-helper does LESS THAN HALF the effort. [place] lifts, holds or supports trunk or limbs, but provides less than half the effort. 2-Substantial/Maximal Assistance-helper does MORE THAN HALF the effort. [place] lifts or holds trunk or limbs and provides more than half the effort. 2-Wifddgvqu-qlhpbp does ALL the effort. Patient does none of the effort to complete the activity. Or, the assistance of 2 or more helpers is required for the patient to complete the activity. If activity was not attempted, code reason: 7-Patient Refused. 9-Not Applicable-not attempted and the patient did not perform the activity before the current illness, exacerbation or injury. 10-Not Attempted due to Environmental Limitations-(lack of equipment, weather restraints, etc.). 88-Not Attempted due to Medical Conditions or Safety Concerns. Sit to Stand (QC): 4 Toilet Transfer (QC): 4 Weight Bearing Left Lower Extremity: Left Weight Bearing/Tolerated Gait Training Does the Patient Walk?: Yes Distance: 300' x2 Walk 10 feet (QC): 4 Walk 50 ft with 2 Turns(QC): 4 Walk 150 ft (QC): 4 Gait Persons Needed: 1 Gait Assistive Device: FWW antalgic gait pattern Wheelchair Training Does the Pt Use a Wheelchair?: No Treatments Pt sitting upright in chair upon arrival of PT. CLERK OF SUPERIOR COURT rasied bed side commode and placed it over toliet in BR to make the seat higher for pt. Pt TF to toliet to make sure height was good. Pt amb. in hallway then back to room to sit in chair. All needs met, call light in hand. Assessment Current Status: Good Progress Pt does not need as many rest breaks during tx. Pt is motivated and pushes herself. PT Short Term Goals Short Term Goals Time Frame: Mar 18, 2022 Roll Left & Right: 4 (SBA) Sit to lyin (SBA) Lying to sitting on side of be: 4 (CGA) Sit to stand: 4 (CGA) Chair/gqu-at-rpblh transfer: 4 (SBA) Toilet transfer: 4 (SBA) Car transfer: 4 (SBA) Walk 150 feet: 4 (CGA) 1 step (curb): 4 (CGA) PT Jumpbasting Canvas Baster Goals [facility] Goals PT Jumpbasting Canvas Baster Goals Time Frame: April 01, 2022 Roll Left & Right (QC): 6 Sit to Lying (QC): 6 Lying-Sitting on Side/Bed(QC): 6 Sit to Stand (QC): 6 Chair/Okw-nj-Ndmie Xfer(QC): 6 Toilet Transfer (QC): 6 Car Transfer (QC): 6 Does the Patient Walk: Yes Walk 10 feet (QC): 6 Walk 50ft with 2 Turns (QC): 6 Walk 150 ft (QC): 6 Walking 10ft on Uneven Surface: 6 1 Step (curb) (QC): 6 4 Steps (QC): 6 12 Steps (QC): 88 Picking up an Object (QC): 6 Wheel 50 feet with 2 turns (QC: 9 Wheel 150 feet: 9 PT Plan Treatment/Plan Treatment Plan: Continue Plan of Care Treatment Plan: Bed Mobility, Education, Functional Activity Fercho, Functional Strength, Group Therapy, Gait, Safety, Therapeutic Exercise, Transfers Treatment Duration: April 01, 2022 Frequency: At least 5 of 7 days/Wk (IRF) Estimated Hrs Per Day: 1.5 hours per day Patient and/or Family Agrees t: Yes Time/GCodes Time In: 1100 Time Out: 1135 Total Billed Treatment Time: 35 Total Billed Treatment 1, FA x2 (35 min) GLENDA SHEN CLERK OF SUPERIOR COURT Mar 13, 2022 11:43
[2022-03-13 20:05] VITALS: BP 119/56
[2022-03-13] MEDS: clonazePAM 0.5 MG (KlonoPIN) TAB PO SCH (20:38)
[2022-03-14] MEDS: MULTIVIT W/MINERALS TAB (THERAGRAN M) PO SCH (06:45)
[2022-03-14] MEDS: oxyCODONE/APAP 5/325MG (PERCOCET 5) TABLET PO PRN ×2 (06:46→20:28)
--- NOTE | 2022-03-14 06:51 | PM&R Progress Note ---
Subjective HPI/CC On Admission Date Seen by Provider: Mar 14, 2022 Time Seen by Provider: 10:00 Subjective/Events-last exam 03/14/22: Patient doing well Pain is controlled DC Thursday Nocturnal hypoxia suspected so will perform formal testing prior to DC Updated patient on hypoxia Needs formal sleep study as outpatient 03/13/2022: Patient doing a lot better Low-grade temperature noted Voiding well Hypoxia noted at night so we will monitor that closely Insomnia may certainly be some sort of nocturnal hypoxia or other sleep disorder 03/12/22: Pt is having a better day 2L of oxygen required last night IS ordered Voiding well since catheter removed Checked meds and labs Hemoglobin was 10 Review of Systems General: Fatigue, Malaise Musculoskeletal: leg pain Objective Exam Vital Signs Vital Signs Date Time Temp Pulse Resp B/P (MAP) Pulse Ox O2 Delivery O2 Flow Rate FiO2 03/14/22 19:05 37.1 97 16 112/66 (81) 97 Room Air 03/13/22 22:45 2.00 Capillary Refill : General Appearance: No Apparent Distress, WD/WN, Chronically ill HEENT: PERRL/EOMI, Normal ENT Inspection, Pharynx Normal Neck: Full Range of Motion, Normal Inspection, Non Tender, Supple, Carotid Bruit Respiratory: Chest Non Tender, Lungs Clear, Normal Breath Sounds, No Accessory Muscle Use, No Respiratory Distress Cardiovascular: Regular Rate, Rhythm, No Edema, No Gallop, No JVD, No Murmur, Normal Peripheral Pulses Gastrointestinal: Normal Bowel Sounds, No Organomegaly, No Pulsatile Mass, Non Tender, Soft Back: Normal Inspection, No CVA Tenderness, No Vertebral Tenderness Extremity: Normal Capillary Refill, Normal Inspection, Normal Range of Motion (Except postop leg), Non Tender, No Calf Tenderness, No Pedal Edema Neurologic/Psychiatric: Alert, Oriented x3, No Motor/Sensory Deficits, Normal Mood/Affect, Abnormal Gait, Motor Weakness (Generalized) Skin: Normal Color, Warm/Dry Lymphatic: No Adenopathy Results/Procedures Lab Patient resulted labs reviewed. FIM Transfers Therapy Code Descriptions/Definitions Functional [place] Measure: 0=Not Assessed/NA 4=Minimal Assistance 1=Total Assistance 5=Supervision or Setup 2=Maximal Assistance 6=Modified [place] 3=Moderate Assistance 7=Complete IndependenceSCALE: Activities may be completed with or without assistive devices. 9-Zsoiyxenip-hgqipzm completes the activity by him/herself with no assistance from a helper. 5-Set-up or Clean-up Assistance-helper sets up or cleans up; patient completes activity. [place] assists only prior to or following the activity. 4-Supervision or Touching Assistance-helper provides verbal cues and/or touching/steadying and/or contact guard assistance as patient completes activity. Assistance may be provided throughout the activity or intermittently. 3-Partial/Moderate Assistance-helper does LESS THAN HALF the effort. [place] lifts, holds or supports trunk or limbs, but provides less than half the effort. 2-Substantial/Maximal Assistance-helper does MORE THAN HALF the effort. [place] lifts or holds trunk or limbs and provides more than half the effort. 1-Xalehrpas-dkvcto does ALL the effort. Patient does none of the effort to complete the activity. Or, the assistance of 2 or more helpers is required for the patient to complete the activity. If activity was not attempted, code reason: 7-Patient Refused. 9-Not Applicable-not attempted and the patient did not perform the activity before the current illness, exacerbation or injury. 10-Not Attempted due to Environmental Limitations-(lack of equipment, weather restraints, etc.). 88-Not Attempted due to Medical Conditions or Safety Concerns. Roll Left to Right (QC): 4 (CGA) Sit to Lying (QC): 4 (CGA) Sit to Stand (QC): 4 Chair/Jse-ej-Ikwnr Xfer(QC): 4 (CGA) Car Transfer (QC): 4 (CGA) Gait Training Does the Patient Walk?: Yes Distance: 300' x2 Walk 10 feet (QC): 4 Walk 50 ft with 2 Turns(QC): 4 Walk 150 ft (QC): 4 Walking 10ft/uneven surface-QC: 4 (CGA) Gait Persons Needed: 1 Gait Assistive Device: FWW Wheelchair Training Does the Pt Use a Wheelchair?: No Wheel 50 ft with 2 turns (QC): 9 Wheel 150 ft (QC): 9 Type of Wheelchair: N/A Stair Training 1 Step (curb) (QC): 88 4 Steps (QC): 88 12 Steps (QC): 88 Balance Picking up an Object (QC): 4 ADL-Treatment Eating (QC): 6 Oral Hygiene (QC): 6 Bathing Location: L Arm, R Arm, L Upper Leg, R Upper Leg, Chest, Abdomen, Buttocks, Perineal Area Shower/Bathe Self (QC): 3 Upper Body Dressing (QC): 5 Lower Body Dressing (QC): 3 On/Off Footwear (QC): 3 (min a) Toileting Hygiene (QC): 1 (dietrich catheter) Assessment/Plan Assessment and Plan Assess & Plan/Chief Complaint Assessment: Status post left hip fracture repair Postop anemia acute blood loss type Insomnia Anxiety Nocturnal hypoxia new dx Plan: Inpatient rehab protocol Monitor hemoglobin May need iron infusion 03/12/2022: Supportive care Monitor hypoxia 03/13/2022: Supportive care Monitor oxygen at hs 03/14/22: Formal study for night time O2 at DC DC Thursday (1) Closed left hip fracture Status: Acute CHITRA NAIK DO Mar 14, 2022 06:51
[2022-03-14 07:41] VITALS: BP 121/57
[2022-03-14] MEDS: ENOXAPARIN 40 MG/0.4 ML (LOVENOX) SYR SC SCH (08:36)
[2022-03-14] MEDS: ASPIRIN E.C. 81 MG (ECOTRIN) TAB PO SCH (08:36)
--- NOTE | 2022-03-14 08:49 | Occupational Ther Daily Note ---
OT Current Status-Daily Note Subjective Pt alert, sitting in recliner. Pt agrees to therapy. No c/o pain, slight dizziness from pain meds this am. Mental Status/Objective Patient Orientation: Person, Place, Time, Situation Attachments: IV ADL-Treatment Pt agrees to shower. Pt is supervision due to dizziness from pain meds while gathering clothing and completing tasks in standing, no LOB noted throughout session. Supervision to gather clothing using FWW. Supervision while standing at sink to complete oral care independently. Supervision while completing shower using grabbars, hand held shower, shower bench and LH sponge. Supervision to complete all dressing, used AE for lower body drsg and footwear. Pt will require FWW, hip kit and shower chair for home equipment. Therapy Code Descriptions/Definitions Functional [place] Measure: 0=Not Assessed/NA 4=Minimal Assistance 1=Total Assistance 5=Supervision or Setup 2=Maximal Assistance 6=Modified [place] 3=Moderate Assistance 7=Complete IndependenceSCALE: Activities may be completed with or without assistive devices. 7-Cshrmnbfxy-rbxlxhy completes the activity by him/herself with no assistance from a helper. 5-Set-up or Clean-up Assistance-helper sets up or cleans up; patient completes activity. [place] assists only prior to or following the activity. 4-Supervision or Touching Assistance-helper provides verbal cues and/or touching/steadying and/or contact guard assistance as patient completes activity. Assistance may be provided throughout the activity or intermittently. 3-Partial/Moderate Assistance-helper does LESS THAN HALF the effort. [place] lifts, holds or supports trunk or limbs, but provides less than half the effort. 2-Substantial/Maximal Assistance-helper does MORE THAN HALF the effort. [place] lifts or holds trunk or limbs and provides more than half the effort. 9-Btsqpxmaj-eavrbr does ALL the effort. Patient does none of the effort to complete the activity. Or, the assistance of 2 or more helpers is required for the patient to complete the activity. If activity was not attempted, code reason: 7-Patient Refused. 9-Not Applicable-not attempted and the patient did not perform the activity before the current illness, exacerbation or injury. 10-Not Attempted due to Environmental Limitations-(lack of equipment, weather restraints, etc.). 88-Not Attempted due to Medical Conditions or Safety Concerns. Eating (QC): 6 Oral Hygiene (QC): 4 Shower/Bathe Self (QC): 4 Upper Body Dressing (QC): 4 Lower Body Dressing (QC): 4 On/Off Footwear: 4 Other Treatment Pt ambulated to therapy gym and room with SBA using FWW with alternating gait. Arm bike completed for 15 min at 25 cherry resistance to increase strength and activity tolerance for daily functional tasks. After therapy, pt sitting in recliner with call light/phone in reach. All needs met in room. OT Short Term Goals Short Term Goals Time Frame: Mar 18, 2022 Eatin Oral hygiene: 5 Toileting hygiene: 4 Shower/bathe self: 3 Upper body dressin Lower body dressin Putting on/taking off footwear: 4 OT [facility] Goals Electrician Office Goals Time Frame: Mar 22, 2022 Eating (QC): 6 Oral Hygiene (QC): 6 Toileting Hygiene (QC): 6 Shower/Bathe Self (QC): 6 Upper Body Dressing (QC): 6 Lower Body Dressing (QC): 6 On/Off Footwear (QC): 6 1=Demonstrate adherence to instructed precautions during ADL tasks. 2=Patient will verbalize/demonstrate understanding of assistive devices/wallace fications for ADL. 3=Patient will improve strength/tolerance for activity to enable patient to perform ADL's. OT Education/Plan Problem List/Assessment Assessment: Decreased Activ Tolerance, Decreased UE Strength, Impaired Self- Care Skills Discharge Recommendations Plan/Recommendations: Continue POC Treatment Plan/Plan of Care Patient would benefit from OT for education, treatment and training to promote independence in ADL's, mobility, safety and/or upper extremity function for ADL's. Plan of Care: ADL Retraining, Functional Mobility, Group Exercise/Act as Ind, UE Funct Exercise/Act Treatment Duration: Mar 22, 2022 Frequency: At least 5 of 7 days/Wk (IRF) Estimated Hrs Per Day: 1.5 hours per day Agreement: Yes Rehab Potential: Good Time/GCodes Start Time: 07:15 Stop Time: 08:45 Total Time Billed (hr/min): 90 Billed Treatment Time 1 visit-ADL 5 (75 min) EX 1 (15 min) IGOR THOMAS Mar 14, 2022 08:49
[2022-03-14] MEDS: polyethylene glycoL POWDER 17 GM (MIRALAX) PACK PO SCH ×2 (08:54→20:29)
[2022-03-14] MEDS: DOCUSATE SODIUM 100 MG (COLACE) CAP PO SCH ×2 (08:54→20:29)
[2022-03-14] MEDS: SENNOSIDES 8.6 MG (SENOKOT) TAB PO SCH ×2 (08:54→20:29)
--- NOTE | 2022-03-14 09:35 | Physical Therapy Daily Note ---
PT Daily Note-Current Subjective Pt agrees to PT. Pt states she received pain medication this morning before arrival of PT. Mental Status Patient Orientation: Person, Place, Time, Situation Transfers SCALE: Activities may be completed with or without assistive devices. 0-Sbdbzijgbs-eiscxid completes the activity by him/herself with no assistance from a helper. 5-Set-up or Clean-up Assistance-helper sets up or cleans up; patient completes activity. [place] assists only prior to or following the activity. 4-Supervision or Touching Assistance-helper provides verbal cues and/or touching/steadying and/or contact guard assistance as patient completes activity. Assistance may be provided throughout the activity or intermittently. 3-Partial/Moderate Assistance-helper does LESS THAN HALF the effort. [place] lifts, holds or supports trunk or limbs, but provides less than half the effort. 2-Substantial/Maximal Assistance-helper does MORE THAN HALF the effort. [place] lifts or holds trunk or limbs and provides more than half the effort. 3-Anxvduont-jwbzqi does ALL the effort. Patient does none of the effort to complete the activity. Or, the assistance of 2 or more helpers is required for the patient to complete the activity. If activity was not attempted, code reason: 7-Patient Refused. 9-Not Applicable-not attempted and the patient did not perform the activity before the current illness, exacerbation or injury. 10-Not Attempted due to Environmental Limitations-(lack of equipment, weather restraints, etc.). 88-Not Attempted due to Medical Conditions or Safety Concerns. Sit to Stand (QC): 4 Weight Bearing Left Lower Extremity: Left Weight Bearing/Tolerated Gait Training Does the Patient Walk?: Yes Distance: 300' x2 Walk 10 feet (QC): 4 Walk 50 ft with 2 Turns(QC): 4 Walk 150 ft (QC): 4 Gait Persons Needed: 1 Gait Assistive Device: FWW slight antalgic gait pattern Wheelchair Training Does the Pt Use a Wheelchair?: No Exercises Seated Therapy Exercises: Ankle pumps, Sit to stand, Long arc quads, Hip flexi on, Hip abd/add, Glut set Seated Reps: 12 Standing: Hip Abduction, 3 way Ex=Flex, Abd, Ext, Mini squats, Sit to Stand Standing Reps: 12 NuStep Minutes: 15 NuStep Workload: 1 Treatments Pt sitting in chair upon arrival of PT. Pt completes seated EX then amb. to gym to complete standing EX and NuStep. Pt amb. back to room. All needs met, call light in hand. Assessment Current Status: Good Progress Pt is motivated and pushes herself. Pt states standing on her affected leg increases the pain. PT Short Term Goals Short Term Goals Time Frame: Mar 18, 2022 Roll Left & Right: 4 (SBA) Sit to lyin (SBA) Lying to sitting on side of be: 4 (CGA) Sit to stand: 4 (CGA) Chair/igo-hn-rxfnm transfer: 4 (SBA) Toilet transfer: 4 (SBA) Car transfer: 4 (SBA) Walk 150 feet: 4 (CGA) 1 step (curb): 4 (CGA) PT Fdc Goals Sonoscope Operator Goals PT Fdc Goals Time Frame: April 01, 2022 Roll Left & Right (QC): 6 Sit to Lying (QC): 6 Lying-Sitting on Side/Bed(QC): 6 Sit to Stand (QC): 6 Chair/Qsi-kj-Ghaxb Xfer(QC): 6 Toilet Transfer (QC): 6 Car Transfer (QC): 6 Does the Patient Walk: Yes Walk 10 feet (QC): 6 Walk 50ft with 2 Turns (QC): 6 Walk 150 ft (QC): 6 Walking 10ft on Uneven Surface: 6 1 Step (curb) (QC): 6 4 Steps (QC): 6 12 Steps (QC): 88 Picking up an Object (QC): 6 Wheel 50 feet with 2 turns (QC: 9 Wheel 150 feet: 9 PT Plan Treatment/Plan Treatment Plan: Continue Plan of Care Treatment Plan: Bed Mobility, Education, Functional Activity Fercho, Functional Strength, Group Therapy, Gait, Safety, Therapeutic Exercise, Transfers Treatment Duration: April 01, 2022 Frequency: At least 5 of 7 days/Wk (IRF) Estimated Hrs Per Day: 1.5 hours per day Patient and/or Family Agrees t: Yes Time/GCodes Time In: 900 Time Out: 1000 Total Billed Treatment Time: 60 Total Billed Treatment 1, EX x3 (45 min), GT (15 min) GLENDA SHEN SOLUTIONS MARKET CONSULTANT Mar 14, 2022 09:35
--- NOTE | 2022-03-14 13:52 | Physical Therapy Daily Note ---
PT Daily Note-Current Subjective Pt agrees to PT. Pt states her pain increases after sitting for long periods of time. Mental Status Patient Orientation: Person, Place, Time, Situation Transfers SCALE: Activities may be completed with or without assistive devices. 2-Qfrpbefutq-ewfwzpe completes the activity by him/herself with no assistance from a helper. 5-Set-up or Clean-up Assistance-helper sets up or cleans up; patient completes activity. [place] assists only prior to or following the activity. 4-Supervision or Touching Assistance-helper provides verbal cues and/or touching/steadying and/or contact guard assistance as patient completes activity. Assistance may be provided throughout the activity or intermittently. 3-Partial/Moderate Assistance-helper does LESS THAN HALF the effort. [place] lifts, holds or supports trunk or limbs, but provides less than half the effort. 2-Substantial/Maximal Assistance-helper does MORE THAN HALF the effort. [place] lifts or holds trunk or limbs and provides more than half the effort. 6-Itjhpfaib-guesfu does ALL the effort. Patient does none of the effort to complete the activity. Or, the assistance of 2 or more helpers is required for the patient to complete the activity. If activity was not attempted, code reason: 7-Patient Refused. 9-Not Applicable-not attempted and the patient did not perform the activity before the current illness, exacerbation or injury. 10-Not Attempted due to Environmental Limitations-(lack of equipment, weather restraints, etc.). 88-Not Attempted due to Medical Conditions or Safety Concerns. Sit to Stand (QC): 5 SBA for sit to stand Weight Bearing Left Lower Extremity: Left Weight Bearing/Tolerated Gait Training Does the Patient Walk?: Yes Distance: 300' x2 Walk 10 feet (QC): 5 Walk 50 ft with 2 Turns(QC): 5 Walk 150 ft (QC): 5 Gait Persons Needed: 1 Gait Assistive Device: Cane Large Base Quad slight antalgic gait, SBA Wheelchair Training Does the Pt Use a Wheelchair?: No Exercises Seated Therapy Exercises: Ankle pumps, Sit to stand, Long arc quads, Hip flexion, Hip abd/add, Glut set Seated Reps: 12 Treatments Pt sitting in chair upon arrival of PT. Pt amb. in hallway with rest breaks as needed then returns to room to sit in chair and complete seated EX. All needs met, call light in hand. Assessment Current Status: Good Progress Pt is motivated and pushes herself. PT Short Term Goals Short Term Goals Time Frame: Mar 18, 2022 Roll Left & Right: 4 (SBA) Sit to lyin (SBA) Lying to sitting on side of be: 4 (CGA) Sit to stand: 4 (CGA) Chair/jiz-ol-jfqlk transfer: 4 (SBA) Toilet transfer: 4 (SBA) Car transfer: 4 (SBA) Walk 150 feet: 4 (CGA) 1 step (curb): 4 (CGA) PT Laborer High Density Press Goals Laborer High Density Press Goals PT Custodial Goals Time Frame: April 01, 2022 Roll Left & Right (QC): 6 Sit to Lying (QC): 6 Lying-Sitting on Side/Bed(QC): 6 Sit to Stand (QC): 6 Chair/Cps-nm-Pgnah Xfer(QC): 6 Toilet Transfer (QC): 6 Car Transfer (QC): 6 Does the Patient Walk: Yes Walk 10 feet (QC): 6 Walk 50ft with 2 Turns (QC): 6 Walk 150 ft (QC): 6 Walking 10ft on Uneven Surface: 6 1 Step (curb) (QC): 6 4 Steps (QC): 6 12 Steps (QC): 88 Picking up an Object (QC): 6 Wheel 50 feet with 2 turns (QC: 9 Wheel 150 feet: 9 PT Plan Treatment/Plan Treatment Plan: Continue Plan of Care Treatment Plan: Bed Mobility, Education, Functional Activity Fercho, Functional Strength, Group Therapy, Gait, Safety, Therapeutic Exercise, Transfers Treatment Duration: April 01, 2022 Frequency: At least 5 of 7 days/Wk (IRF) Estimated Hrs Per Day: 1.5 hours per day Patient and/or Family Agrees t: Yes Safety Risks/Education Patient Education: Gait Training Teaching Recipient: Patient Teaching Methods: Demonstration, Discussion Response to Teaching: Verbalize Understanding, Return Demonstration Time/GCodes Time In: 1300 Time Out: 1330 Total Billed Treatment Time: 30 Total Billed Treatment 1, GT (15 min) EX (15 min) GLENDA SHEN BLOCK SPLITTER OPERATOR Mar 14, 2022 13:52
[2022-03-14 19:05] VITALS: BP 112/66
[2022-03-14] MEDS: clonazePAM 0.5 MG (KlonoPIN) TAB PO SCH (20:28)
--- NOTE | 2022-03-15 05:53 | PM&R Progress Note ---
Subjective HPI/CC On Admission Date Seen by Provider: Mar 15, 2022 Time Seen by Provider: 06:00 Subjective/Events-last exam 03/15/2022: Patient doing well Discharge Thursday Nocturnal oxygen study will be done Thursday night No concerns at this point 03/14/22: Patient doing well Pain is controlled DC Thursday Nocturnal hypoxia suspected so will perform formal testing prior to DC Updated patient on hypoxia Needs formal sleep study as outpatient 03/13/2022: Patient doing a lot better Low-grade temperature noted Voiding well Hypoxia noted at night so we will monitor that closely Insomnia may certainly be some sort of nocturnal hypoxia or other sleep disorder 03/12/22: Pt is having a better day 2L of oxygen required last night IS ordered Voiding well since catheter removed Checked meds and labs Hemoglobin was 10 Review of Systems General: Fatigue, Malaise Musculoskeletal: leg pain Objective Exam Vital Signs Vital Signs Date Time Temp Pulse Resp B/P (MAP) Pulse Ox O2 Delivery O2 Flow Rate FiO2 03/15/22 09:30 Room Air 03/15/22 08:24 0.00 03/15/22 07:15 36.4 92 16 119/68 (85) 91 Capillary Refill : General Appearance: No Apparent Distress, WD/WN, Chronically ill HEENT: PERRL/EOMI, Normal ENT Inspection, Pharynx Normal Neck: Full Range of Motion, Normal Inspection, Non Tender, Supple, Carotid Bruit Respiratory: Chest Non Tender, Lungs Clear, Normal Breath Sounds, No Accessory Muscle Use, No Respiratory Distress Cardiovascular: Regular Rate, Rhythm, No Edema, No Gallop, No JVD, No Murmur, Normal Peripheral Pulses Gastrointestinal: Normal Bowel Sounds, No Organomegaly, No Pulsatile Mass, Non Tender, Soft Back: Normal Inspection, No CVA Tenderness, No Vertebral Tenderness Extremity: Normal Capillary Refill, Normal Inspection, Normal Range of Motion (Except postop leg), Non Tender, No Calf Tenderness, No Pedal Edema Neurologic/Psychiatric: Alert, Oriented x3, No Motor/Sensory Deficits, Normal Mood/Affect, Abnormal Gait, Motor Weakness (Generalized) Skin: Normal Color, Warm/Dry Lymphatic: No Adenopathy Results/Procedures Lab Patient resulted labs reviewed. FIM Transfers Therapy Code Descriptions/Definitions Functional [place] Measure: 0=Not Assessed/NA 4=Minimal Assistance 1=Total Assistance 5=Supervision or Setup 2=Maximal Assistance 6=Modified [place] 3=Moderate Assistance 7=Complete IndependenceSCALE: Activities may be completed with or without assistive devices. 3-Lqrpruexhl-zkumzpu completes the activity by him/herself with no assistance from a helper. 5-Set-up or Clean-up Assistance-helper sets up or cleans up; patient completes activity. [place] assists only prior to or following the activity. 4-Supervision or Touching Assistance-helper provides verbal cues and/or touching/steadying and/or contact guard assistance as patient completes activity. Assistance may be provided throughout the activity or intermittently. 3-Partial/Moderate Assistance-helper does LESS THAN HALF the effort. [place] lifts, holds or supports trunk or limbs, but provides less than half the effort. 2-Substantial/Maximal Assistance-helper does MORE THAN HALF the effort. [place] lifts or holds trunk or limbs and provides more than half the effort. 4-Hdnnndgkg-wkxucq does ALL the effort. Patient does none of the effort to complete the activity. Or, the assistance of 2 or more helpers is required for the patient to complete the activity. If activity was not attempted, code reason: 7-Patient Refused. 9-Not Applicable-not attempted and the patient did not perform the activity before the current illness, exacerbation or injury. 10-Not Attempted due to Environmental Limitations-(lack of equipment, weather restraints, etc.). 88-Not Attempted due to Medical Conditions or Safety Concerns. Roll Left to Right (QC): 4 (CGA) Sit to Lying (QC): 4 (CGA) Sit to Stand (QC): 5 Chair/Gxk-mf-Dvbyz Xfer(QC): 4 (CGA) Car Transfer (QC): 4 (CGA) Gait Training Does the Patient Walk?: Yes Distance: 300' x2 Walk 10 feet (QC): 5 Walk 50 ft with 2 Turns(QC): 5 Walk 150 ft (QC): 5 Walking 10ft/uneven surface-QC: 4 (CGA) Gait Persons Needed: 1 Gait Assistive Device: Cane Large Base Quad Wheelchair Training Does the Pt Use a Wheelchair?: No Wheel 50 ft with 2 turns (QC): 9 Wheel 150 ft (QC): 9 Type of Wheelchair: N/A Stair Training 1 Step (curb) (QC): 88 4 Steps (QC): 88 12 Steps (QC): 88 Balance Picking up an Object (QC): 4 ADL-Treatment Eating (QC): 6 Oral Hygiene (QC): 4 Bathing Location: L Arm, R Arm, L Upper Leg, R Upper Leg, Chest, Abdomen, Buttocks, Perineal Area Shower/Bathe Self (QC): 4 Upper Body Dressing (QC): 4 Lower Body Dressing (QC): 4 On/Off Footwear (QC): 4 Toileting Hygiene (QC): 1 (dietrich catheter) Assessment/Plan Assessment and Plan Assess & Plan/Chief Complaint Assessment: Status post left hip fracture repair Postop anemia acute blood loss type Insomnia Anxiety Nocturnal hypoxia new dx Plan: Inpatient rehab protocol Monitor hemoglobin May need iron infusion 03/12/2022: Supportive care Monitor hypoxia 03/13/2022: Supportive care Monitor oxygen at hs 03/14/22: Formal study for night time O2 at DC [place] Thursday03/15/2022: Oxygen supplement at hs (1) Closed left hip fracture Status: Acute CHITRA NAIK DO Mar 15, 2022 05:53
[2022-03-15] MEDS: MULTIVIT W/MINERALS TAB (THERAGRAN M) PO SCH (06:24)
[2022-03-15] MEDS: oxyCODONE/APAP 5/325MG (PERCOCET 5) TABLET PO PRN ×2 (06:25→20:48)
[2022-03-15 07:15] VITALS: BP 119/68
[2022-03-15] MEDS: ASPIRIN E.C. 81 MG (ECOTRIN) TAB PO SCH (07:28)
[2022-03-15] MEDS: ENOXAPARIN 40 MG/0.4 ML (LOVENOX) SYR SC SCH (07:28)
[2022-03-15] MEDS: SENNOSIDES 8.6 MG (SENOKOT) TAB PO SCH ×2 (08:43→20:49)
[2022-03-15] MEDS: polyethylene glycoL POWDER 17 GM (MIRALAX) PACK PO SCH ×2 (08:43→20:49)
[2022-03-15] MEDS: DOCUSATE SODIUM 100 MG (COLACE) CAP PO SCH ×2 (08:43→20:48)
--- NOTE | 2022-03-15 10:10 | Physical Therapy Daily Note ---
PT Daily Note-Current Subjective Pt. up in chair, readily agrees to therapy. States she plans to discharge home this week. She has no c/o pain. Mental Status Patient Orientation: Person, Place, Time, Situation Transfers SCALE: Activities may be completed with or without assistive devices. 8-Ybdktvzbks-adcrqfn completes the activity by him/herself with no assistance from a helper. 5-Set-up or Clean-up Assistance-helper sets up or cleans up; patient completes activity. [place] assists only prior to or following the activity. 4-Supervision or Touching Assistance-helper provides verbal cues and/or touching/steadying and/or contact guard assistance as patient completes activity. Assistance may be provided throughout the activity or intermittently. 3-Partial/Moderate Assistance-helper does LESS THAN HALF the effort. [place] lifts, holds or supports trunk or limbs, but provides less than half the effort. 2-Substantial/Maximal Assistance-helper does MORE THAN HALF the effort. [place] lifts or holds trunk or limbs and provides more than half the effort. 8-Kmefaltzj-hvglhu does ALL the effort. Patient does none of the effort to complete the activity. Or, the assistance of 2 or more helpers is required for the patient to complete the activity. If activity was not attempted, code reason: 7-Patient Refused. 9-Not Applicable-not attempted and the patient did not perform the activity before the current illness, exacerbation or injury. 10-Not Attempted due to Environmental Limitations-(lack of equipment, weather restraints, etc.). 88-Not Attempted due to Medical Conditions or Safety Concerns. Sit to Stand (QC): 6 Weight Bearing Left Lower Extremity: Left Weight Bearing/Tolerated Gait Training Does the Patient Walk?: Yes Distance: 400 ft Walk 150 ft (QC): 4 Gait Persons Needed: 1 Gait Assistive Device: FWW steady gait, slight antalgia on L requiring use of UE's on FWW Stair Training Stair Training: Handrails/: 2 handrails #of Steps: 4 4 Steps (QC): 4 Stairs: Pattern: Step to Exercises Standing: Hamstring curls, Heel/toe raises, Mini squats, Side steps Standing Reps: 15 Treatments gait training, LE exercises, stair training Assessment Current Status: Good Progress Pt. is progressing very well with therapy, and is SBA with all transfers and ambulation. She completed 4 stairs with CGA. Pt. did well with exercises in // bars. She returned to bedside chair post session with call light and all needs met. PT Short Term Goals Short Term Goals Time Frame: Mar 18, 2022 Roll Left & Right: 4 (SBA) Sit to lyin (SBA) Lying to sitting on side of be: 4 (CGA) Sit to stand: 4 (CGA) Chair/eyo-ey-eidlo transfer: 4 (SBA) Toilet transfer: 4 (SBA) Car transfer: 4 (SBA) Walk 150 feet: 4 (CGA) 1 step (curb): 4 (CGA) PT Host Goals Custodial Goals PT Custodial Goals Time Frame: April 01, 2022 Roll Left & Right (QC): 6 Sit to Lying (QC): 6 Lying-Sitting on Side/Bed(QC): 6 Sit to Stand (QC): 6 Chair/Ztq-vz-Nqqin Xfer(QC): 6 Toilet Transfer (QC): 6 Car Transfer (QC): 6 Does the Patient Walk: Yes Walk 10 feet (QC): 6 Walk 50ft with 2 Turns (QC): 6 Walk 150 ft (QC): 6 Walking 10ft on Uneven Surface: 6 1 Step (curb) (QC): 6 4 Steps (QC): 6 12 Steps (QC): 88 Picking up an Object (QC): 6 Wheel 50 feet with 2 turns (QC: 9 Wheel 150 feet: 9 PT Plan Treatment/Plan Treatment Plan: Continue Plan of Care Treatment Plan: Bed Mobility, Education, Functional Activity Fercho, Functional Strength, Group Therapy, Gait, Safety, Therapeutic Exercise, Transfers Treatment Duration: April 01, 2022 Frequency: At least 5 of 7 days/Wk (IRF) Estimated Hrs Per Day: 1.5 hours per day Patient and/or Family Agrees t: Yes Time/GCodes Time In: 0742 Time Out: 0810 Total Billed Treatment Time: 28 Total Billed Treatment 1, GT 15', Ex 13' AMANDEEP HARPER PT Mar 15, 2022 10:10
[2022-03-15 20:25] VITALS: BP 108/62
[2022-03-15] MEDS: clonazePAM 0.5 MG (KlonoPIN) TAB PO SCH (20:48)
--- NOTE | 2022-03-16 06:00 | PM&R Progress Note ---
Subjective HPI/CC On Admission Date Seen by Provider: Mar 16, 2022 Time Seen by Provider: 06:00 Subjective/Events-last exam 03/16/22: Patient doing really well No pain is reported Walking better No falls 03/15/2022: Patient doing well Discharge Thursday Nocturnal oxygen study will be done Thursday night No concerns at this point 03/14/22: Patient doing well Pain is controlled DC Thursday Nocturnal hypoxia suspected so will perform formal testing prior to DC Updated patient on hypoxia Needs formal sleep study as outpatient 03/13/2022: Patient doing a lot better Low-grade temperature noted Voiding well Hypoxia noted at night so we will monitor that closely Insomnia may certainly be some sort of nocturnal hypoxia or other sleep disorder 03/12/22: Pt is having a better day 2L of oxygen required last night IS ordered Voiding well since catheter removed Checked meds and labs Hemoglobin was 10 Review of Systems General: Fatigue, Malaise Objective Exam Vital Signs Vital Signs Date Time Temp Pulse Resp B/P (MAP) Pulse Ox O2 Delivery O2 Flow Rate FiO2 03/16/22 09:45 Room Air 03/16/22 07:30 0.00 03/16/22 07:10 36.3 93 20 101/58 (72) 97 Capillary Refill : General Appearance: No Apparent Distress, WD/WN, Chronically ill HEENT: PERRL/EOMI, Normal ENT Inspection, Pharynx Normal Neck: Full Range of Motion, Normal Inspection, Non Tender, Supple, Carotid Bruit Respiratory: Chest Non Tender, Lungs Clear, Normal Breath Sounds, No Accessory Muscle Use, No Respiratory Distress Cardiovascular: Regular Rate, Rhythm, No Edema, No Gallop, No JVD, No Murmur, Normal Peripheral Pulses Gastrointestinal: Normal Bowel Sounds, No Organomegaly, No Pulsatile Mass, Non Tender, Soft Back: Normal Inspection, No CVA Tenderness, No Vertebral Tenderness Extremity: Normal Capillary Refill, Normal Inspection, Normal Range of Motion (Except postop leg), Non Tender, No Calf Tenderness, No Pedal Edema Neurologic/Psychiatric: Alert, Oriented x3, No Motor/Sensory Deficits, Normal Mood/Affect, Abnormal Gait, Motor Weakness (Generalized) Skin: Normal Color, Warm/Dry Lymphatic: No Adenopathy Results/Procedures Lab Patient resulted labs reviewed. FIM Transfers Therapy Code Descriptions/Definitions Functional [place] Measure: 0=Not Assessed/NA 4=Minimal Assistance 1=Total Assistance 5=Supervision or Setup 2=Maximal Assistance 6=Modified [place] 3=Moderate Assistance 7=Complete IndependenceSCALE: Activities may be completed with or without assistive devices. 7-Wjycqqzlgk-yvwyxjf completes the activity by him/herself with no assistance from a helper. 5-Set-up or Clean-up Assistance-helper sets up or cleans up; patient completes activity. [place] assists only prior to or following the activity. 4-Supervision or Touching Assistance-helper provides verbal cues and/or touching/steadying and/or contact guard assistance as patient completes activity. Assistance may be provided throughout the activity or intermittently. 3-Partial/Moderate Assistance-helper does LESS THAN HALF the effort. [place] lifts, holds or supports trunk or limbs, but provides less than half the effort. 2-Substantial/Maximal Assistance-helper does MORE THAN HALF the effort. [place] lifts or holds trunk or limbs and provides more than half the effort. 9-Xpjtckrmr-vjrkop does ALL the effort. Patient does none of the effort to complete the activity. Or, the assistance of 2 or more helpers is required for the patient to complete the activity. If activity was not attempted, code reason: 7-Patient Refused. 9-Not Applicable-not attempted and the patient did not perform the activity before the current illness, exacerbation or injury. 10-Not Attempted due to Environmental Limitations-(lack of equipment, weather restraints, etc.). 88-Not Attempted due to Medical Conditions or Safety Concerns. Roll Left to Right (QC): 4 (CGA) Sit to Lying (QC): 4 (CGA) Sit to Stand (QC): 6 Chair/Won-bj-Hycle Xfer(QC): 4 (CGA) Car Transfer (QC): 4 (CGA) Gait Training Does the Patient Walk?: Yes Distance: 400 ft Walk 10 feet (QC): 5 Walk 50 ft with 2 Turns(QC): 5 Walk 150 ft (QC): 4 Walking 10ft/uneven surface-QC: 4 (CGA) Gait Persons Needed: 1 Gait Assistive Device: FWW Wheelchair Training Does the Pt Use a Wheelchair?: No Wheel 50 ft with 2 turns (QC): 9 Wheel 150 ft (QC): 9 Type of Wheelchair: N/A Stair Training Stair Training: Handrails/: 2 handrails #of Steps: 4 1 Step (curb) (QC): 88 4 Steps (QC): 4 12 Steps (QC): 88 Stairs: Pattern: Step to Balance Picking up an Object (QC): 4 ADL-Treatment Eating (QC): 6 Oral Hygiene (QC): 4 Bathing Location: L Arm, R Arm, L Upper Leg, R Upper Leg, Chest, Abdomen, Buttocks, Perineal Area Shower/Bathe Self (QC): 4 Upper Body Dressing (QC): 4 Lower Body Dressing (QC): 4 On/Off Footwear (QC): 4 Toileting Hygiene (QC): 1 (dietrich catheter) Assessment/Plan Assessment and Plan Assess & Plan/Chief Complaint Assessment: Status post left hip fracture repair Postop anemia acute blood loss type Insomnia Anxiety Nocturnal hypoxia new dx Plan: Inpatient rehab protocol Monitor hemoglobin May need iron infusion 03/12/2022: Supportive care Monitor hypoxia 03/13/2022: Supportive care Monitor oxygen at 03/14/22: Formal study for night time O2 at [facility] Thursday03/15/2022: Oxygen supplement at 03/16/2022: Nighttime oxygen study tonight Supportive care (1) Closed left hip fracture Status: Acute CHTIRA NAIK DO Mar 16, 2022 06:00
[2022-03-16] MEDS: MULTIVIT W/MINERALS TAB (THERAGRAN M) PO SCH (06:27)
[2022-03-16 07:10] VITALS: BP 101/58
[2022-03-16] MEDS: ENOXAPARIN 40 MG/0.4 ML (LOVENOX) SYR SC SCH (07:55)
[2022-03-16] MEDS: ASPIRIN E.C. 81 MG (ECOTRIN) TAB PO SCH (07:56)
[2022-03-16] MEDS: DOCUSATE SODIUM 100 MG (COLACE) CAP PO SCH ×2 (07:56→20:43)
[2022-03-16] MEDS: oxyCODONE/APAP 5/325MG (PERCOCET 5) TABLET PO PRN ×2 (08:00→20:43)
[2022-03-16] MEDS: polyethylene glycoL POWDER 17 GM (MIRALAX) PACK PO SCH ×2 (12:01→21:53)
[2022-03-16] MEDS: SENNOSIDES 8.6 MG (SENOKOT) TAB PO SCH ×2 (12:01→21:53)
[2022-03-16 19:58] VITALS: BP 117/56
[2022-03-16] MEDS: clonazePAM 0.5 MG (KlonoPIN) TAB PO SCH (20:43)
[2022-03-17 06:09] LABS: BASOPHILS # (AUTO) 0.1 10^3/uL (0.0-0.1); BASOPHILS % (AUTO) 1 % (0-10); EOSINOPHILS # (AUTO) 0.4 10^3/uL (0.0-0.3); EOSINOPHILS % (AUTO) 5 % (0-10); HEMATOCRIT 30 % (35-52); HEMOGLOBIN 10.2 g/dL (11.5-16.0); LYMPHOCYTES % (AUTO) 25 % (12-44); MEAN CORPUSCULAR HEMOGLOBIN 32 pg (25-34); MEAN CORPUSCULAR HGB CONC 34 g/dL (32-36); MEAN CORPUSCULAR VOLUME 96 fL (80-99); MEAN PLATELET VOLUME 10.6 fL (9.0-12.2); MONOCYTES # (AUTO) 0.7 10^3/uL (0.0-1.0); MONOCYTES % (AUTO) 9 % (0-12); NEUTROPHILS # (AUTO) 4.6 10^3/uL (1.8-7.8); NEUTROPHILS % (AUTO) 58 % (42-75); PLATELET COUNT 312 10^3/uL (130-400); WHITE BLOOD COUNT 7.9 10^3/uL (4.3-11.0)
--- NOTE | 2022-03-17 06:11 | PM&R Progress Note ---
Subjective HPI/CC On Admission Date Seen by Provider: Mar 17, 2022 Time Seen by Provider: 09:30 Subjective/Events-last exam 03/17/22: Patient doing well No pain most of the time DC planned for tomorrow No night time O2 needed after assessing study but I told her we need her to complete sleep study soon 03/16/22: Patient doing really well No pain is reported Walking better No falls 03/15/2022: Patient doing well Discharge Thursday Nocturnal oxygen study will be done Thursday night No concerns at this point 03/14/22: Patient doing well Pain is controlled DC Thursday Nocturnal hypoxia suspected so will perform formal testing prior to DC Updated patient on hypoxia Needs formal sleep study as outpatient 03/13/2022: Patient doing a lot better Low-grade temperature noted Voiding well Hypoxia noted at night so we will monitor that closely Insomnia may certainly be some sort of nocturnal hypoxia or other sleep disorder 03/12/22: Pt is having a better day 2L of oxygen required last night IS ordered Voiding well since catheter removed Checked meds and labs Hemoglobin was 10 Review of Systems General: Fatigue, Malaise Objective Exam Vital Signs Vital Signs Date Time Temp Pulse Resp B/P (MAP) Pulse Ox O2 Delivery O2 Flow Rate FiO2 03/17/22 20:50 Room Air 03/17/22 19:35 37.0 94 20 112/71 (85) 96 03/16/22 19:39 0.00 Capillary Refill : General Appearance: No Apparent Distress, WD/WN, Chronically ill HEENT: PERRL/EOMI, Normal ENT Inspection, Pharynx Normal Neck: Full Range of Motion, Normal Inspection, Non Tender, Supple, Carotid Bruit Respiratory: Chest Non Tender, Lungs Clear, Normal Breath Sounds, No Accessory Muscle Use, No Respiratory Distress Cardiovascular: Regular Rate, Rhythm, No Edema, No Gallop, No JVD, No Murmur, Normal Peripheral Pulses Gastrointestinal: Normal Bowel Sounds, No Organomegaly, No Pulsatile Mass, Non Tender, Soft Back: Normal Inspection, No CVA Tenderness, No Vertebral Tenderness Extremity: Normal Capillary Refill, Normal Inspection, Normal Range of Motion (Except postop leg), Non Tender, No Calf Tenderness, No Pedal Edema Neurologic/Psychiatric: Alert, Oriented x3, No Motor/Sensory Deficits, Normal Mood/Affect, Abnormal Gait, Motor Weakness (Generalized) Skin: Normal Color, Warm/Dry Lymphatic: No Adenopathy Results/Procedures Lab Patient resulted labs reviewed. FIM Transfers Therapy Code Descriptions/Definitions Functional [place] Measure: 0=Not Assessed/NA 4=Minimal Assistance 1=Total Assistance 5=Supervision or Setup 2=Maximal Assistance 6=Modified [place] 3=Moderate Assistance 7=Complete IndependenceSCALE: Activities may be completed with or without assistive devices. 5-Xsrbofyvwj-vuqbtmq completes the activity by him/herself with no assistance from a helper. 5-Set-up or Clean-up Assistance-helper sets up or cleans up; patient completes activity. [place] assists only prior to or following the activity. 4-Supervision or Touching Assistance-helper provides verbal cues and/or touching/steadying and/or contact guard assistance as patient completes activity. Assistance may be provided throughout the activity or intermittently. 3-Partial/Moderate Assistance-helper does LESS THAN HALF the effort. [place] lifts, holds or supports trunk or limbs, but provides less than half the effort. 2-Substantial/Maximal Assistance-helper does MORE THAN HALF the effort. [place] lifts or holds trunk or limbs and provides more than half the effort. 8-Pcbonouaq-eworfv does ALL the effort. Patient does none of the effort to complete the activity. Or, the assistance of 2 or more helpers is required for the patient to complete the activity. If activity was not attempted, code reason: 7-Patient Refused. 9-Not Applicable-not attempted and the patient did not perform the activity before the current illness, exacerbation or injury. 10-Not Attempted due to Environmental Limitations-(lack of equipment, weather restraints, etc.). 88-Not Attempted due to Medical Conditions or Safety Concerns. Roll Left to Right (QC): 4 (CGA) Sit to Lying (QC): 4 (CGA) Sit to Stand (QC): 6 Chair/Roi-yf-Agary Xfer(QC): 4 (CGA) Car Transfer (QC): 4 (CGA) Gait Training Does the Patient Walk?: Yes Distance: 400 ft Walk 10 feet (QC): 5 Walk 50 ft with 2 Turns(QC): 5 Walk 150 ft (QC): 4 Walking 10ft/uneven surface-QC: 4 (CGA) Gait Persons Needed: 1 Gait Assistive Device: FWW Wheelchair Training Does the Pt Use a Wheelchair?: No Wheel 50 ft with 2 turns (QC): 9 Wheel 150 ft (QC): 9 Type of Wheelchair: N/A Stair Training Stair Training: Handrails/: 2 handrails #of Steps: 4 1 Step (curb) (QC): 88 4 Steps (QC): 4 12 Steps (QC): 88 Stairs: Pattern: Step to Balance Picking up an Object (QC): 4 ADL-Treatment Eating (QC): 6 Oral Hygiene (QC): 4 Bathing Location: L Arm, R Arm, L Upper Leg, R Upper Leg, Chest, Abdomen, Buttocks, Perineal Area Shower/Bathe Self (QC): 4 Upper Body Dressing (QC): 4 Lower Body Dressing (QC): 4 On/Off Footwear (QC): 4 Toileting Hygiene (QC): 1 (dietrich catheter) Assessment/Plan Assessment and Plan Assess & Plan/Chief Complaint Assessment: Status post left hip fracture repair Postop anemia acute blood loss type Insomnia Anxiety Nocturnal hypoxia new dx but overnight study performed on 03/16-03/17 did not indicate this condition Plan: Inpatient rehab protocol Monitor hemoglobin May need iron infusion 03/12/2022: Supportive care Monitor hypoxia 03/13/2022: Supportive care Monitor oxygen at hs 03/14/22: Formal study for night time O2 at [facility] Thursday03/15/2022: Oxygen supplement at hs 03/16/2022: Nighttime oxygen study tonight Supportive care 03/17/22: [place] planned (1) Closed left hip fracture Status: Acute CHITRA NAIK DO Mar 17, 2022 06:11
[2022-03-17 06:40] LABS: ALBUMIN 3.4 GM/DL (3.2-4.5); BILIRUBIN,TOTAL 0.7 MG/DL (0.1-1.0); CALCIUM 8.8 MG/DL (8.5-10.1); CREATININE SERUM 0.64 MG/DL (0.60-1.30); POTASSIUM 3.8 MMOL/L (3.6-5.0)
[2022-03-17] MEDS: oxyCODONE/APAP 5/325MG (PERCOCET 5) TABLET PO PRN (06:56)
[2022-03-17] MEDS: MULTIVIT W/MINERALS TAB (THERAGRAN M) PO SCH (06:56)
--- NOTE | 2022-03-17 07:26 | Occupational Ther Daily Note ---
OT Current Status-Daily Note Subjective Pt alert, sitting in recliner. Pt agrees to therapy. No c/o pain. Mental Status/Objective Patient Orientation: Person, Place, Time, Situation ADL-Treatment Pt agrees to shower. Pt able to retrieve clothing using FWW independently then transported clothing with FWW to bathroom independently. Independent with toilet transfer and toileting. Standing at sink, pt able to complete oral care and grooming independently. Sitting on shower bench, pt able to complete shower independently using grabbars, hand held shower and LH sponge. Pt able to don/doff upper body clothing independently. Don/doff lower body clothing independently using AE. Using AE, pt don/doff shoes/socks independently. Therapy Code Descriptions/Definitions Functional [place] Measure: 0=Not Assessed/NA 4=Minimal Assistance 1=Total Assistance 5=Supervision or Setup 2=Maximal Assistance 6=Modified [place] 3=Moderate Assistance 7=Complete IndependenceSCALE: Activities may be completed with or without assistive devices. 5-Eldelsplvb-qzspnfj completes the activity by him/herself with no assistance from a helper. 5-Set-up or Clean-up Assistance-helper sets up or cleans up; patient completes activity. [place] assists only prior to or following the activity. 4-Supervision or Touching Assistance-helper provides verbal cues and/or touching/steadying and/or contact guard assistance as patient completes activity. Assistance may be provided throughout the activity or intermittently. 3-Partial/Moderate Assistance-helper does LESS THAN HALF the effort. [place] lift s, holds or supports trunk or limbs, but provides less than half the effort. 2-Substantial/Maximal Assistance-helper does MORE THAN HALF the effort. [place] lifts or holds trunk or limbs and provides more than half the effort. 6-Swrnkroda-kzjmek does ALL the effort. Patient does none of the effort to complete the activity. Or, the assistance of 2 or more helpers is required for the patient to complete the activity. If activity was not attempted, code reason: 7-Patient Refused. 9-Not Applicable-not attempted and the patient did not perform the activity before the current illness, exacerbation or injury. 10-Not Attempted due to Environmental Limitations-(lack of equipment, weather restraints, etc.). 88-Not Attempted due to Medical Conditions or Safety Concerns. Eating (QC): 6 Oral Hygiene (QC): 6 Shower/Bathe Self (QC): 6 Upper Body Dressing (QC): 6 Lower Body Dressing (QC): 6 On/Off Footwear: 6 Toileting Hygiene (QC): 6 Toilet Transfer (QC): 6 Pt is getting hip kit for lower body dressing, shower seat and FWW. Other Treatment Pt ambulated to therapy gym to complete UE exercises to increase strength and activity tolerance for daily functional tasks. 2# hand wts used for 6 exercises, 2 sets 10 reps with skilled instruction for technique. Arm bike completed for 10 min at 20 cherry resistance rotating forward and backward. Pt then ambulated to [facility] kitchen area to work on mobility while retrieving items from cabinet, drawers, oven, microwave, freezer and refrigerator with no LOB noted. Pt then ambulated back to room and sat in chair after therapy. Call light/phone in reach. All needs met in room. OT Short Term Goals Short Term Goals Time Frame: Mar 18, 2022 Eatin Oral hygiene: 5 Toileting hygiene: 4 Shower/bathe self: 3 Upper body dressin Lower body dressin Putting on/taking off footwear: 4 OT Surveyor'S Assistant Goals Intermediate Goals Time Frame: Mar 22, 2022 Eating (QC): 6 (met) Oral Hygiene (QC): 6 (met) Toileting Hygiene (QC): 6 (met) Shower/Bathe Self (QC): 6 (met) Upper Body Dressing (QC): 6 (met) Lower Body Dressing (QC): 6 (met) On/Off Footwear (QC): 6 (met) 1=Demonstrate adherence to instructed precautions during ADL tasks. 2=Patient will verbalize/demonstrate understanding of assistive devices/modifications for ADL. 3=Patient will improve strength/tolerance for activity to enable patient to perform ADL's. OT Education/Plan Problem List/Assessment Assessment: Impaired Self-Care Skills Discharge Recommendations Plan/Recommendations: Continue POC Therapy Discharge Recommendati: Home & Family, Post Acute PT, Post Acute OT Equpiment Recommendations-D/C: Bath Chair, Hip Kit Treatment Plan/Plan of Care Patient would benefit from OT for education, treatment and training to promote independence in ADL's, mobility, safety and/or upper extremity function for ADL's. Plan of Care: ADL Retraining, Functional Mobility, Group Exercise/Act as Ind, UE Funct Exercise/Act Treatment Duration: Mar 22, 2022 Frequency: At least 5 of 7 days/Wk (IRF) Estimated Hrs Per Day: 1.5 hours per day Agreement: Yes Rehab Potential: Good Time/GCodes Start Time: 07:15 Stop Time: 08:45 Total Time Billed (hr/min): 90 Billed Treatment Time 1 visit-ADL 4 (60 min) EX 1 (20 min) FA 1 (10 min) IGOR THOMAS Mar 17, 2022 07:26
[2022-03-17 07:52] VITALS: BP 130/61
[2022-03-17] MEDS: ASPIRIN E.C. 81 MG (ECOTRIN) TAB PO SCH (08:55)
[2022-03-17] MEDS: ENOXAPARIN 40 MG/0.4 ML (LOVENOX) SYR SC SCH (08:55)
[2022-03-17] MEDS: DOCUSATE SODIUM 100 MG (COLACE) CAP PO SCH ×2 (09:20→21:05)
[2022-03-17] MEDS: polyethylene glycoL POWDER 17 GM (MIRALAX) PACK PO SCH ×2 (09:20→16:49)
[2022-03-17] MEDS: SENNOSIDES 8.6 MG (SENOKOT) TAB PO SCH ×2 (09:20→21:05)
--- NOTE | 2022-03-17 09:43 | Physical Therapy Daily Note ---
PT Daily Note-Current Subjective Pt agrees to PT. Pt states her pain is only when she walks and is barely noticeable. Pt doesn't rate her pain. Mental Status Patient Orientation: Person, Place, Time, Situation Transfers SCALE: Activities may be completed with or without assistive devices. 5-Vtzlptwzns-vdhsupo completes the activity by him/herself with no assistance from a helper. 5-Set-up or Clean-up Assistance-helper sets up or cleans up; patient completes activity. [place] assists only prior to or following the activity. 4-Supervision or Touching Assistance-helper provides verbal cues and/or touching/steadying and/or contact guard assistance as patient completes activity. Assistance may be provided throughout the activity or intermittently. 3-Partial/Moderate Assistance-helper does LESS THAN HALF the effort. [place] lifts, holds or supports trunk or limbs, but provides less than half the effort. 2-Substantial/Maximal Assistance-helper does MORE THAN HALF the effort. [place] lifts or holds trunk or limbs and provides more than half the effort. 6-Upbukdeee-hpkmou does ALL the effort. Patient does none of the effort to complete the activity. Or, the assistance of 2 or more helpers is required for the patient to complete the activity. If activity was not attempted, code reason: 7-Patient Refused. 9-Not Applicable-not attempted and the patient did not perform the activity before the current illness, exacerbation or injury. 10-Not Attempted due to Environmental Limitations-(lack of equipment, weather restraints, etc.). 88-Not Attempted due to Medical Conditions or Safety Concerns. Roll Left & Right (QC): 6 Sit to Lying (QC): 6 Lying to Sitting/Side of Bed(Q: 6 Sit to Stand (QC): 6 Chair/Vjm-vo-Gdlfa Xfer(QC): 6 Toilet Transfer (QC): 6 Car Transfer (QC): 6 Weight Bearing Left Lower Extremity: Left Weight Bearing/Tolerated Gait Training Does the Patient Walk?: Yes Distance: 300' x2 Walk 10 feet (QC): 6 Walk 50 ft with 2 Turns(QC): 6 Walk 150 ft (QC): 6 Walking 10ft/uneven surface-QC: 6 Gait Persons Needed: 0 Gait Assistive Device: FWW Wheelchair Training Does the Pt Use a Wheelchair?: No Stair Training Stair Training: Handrails/: 2 handrails #of Steps: 4 1 Step (curb) (QC): 6 4 Steps (QC): 5 12 Steps (QC): 7 Stairs: Pattern: Step to Balance Picking up an Object (QC): 6 Exercises Seated Therapy Exercises: Ankle pumps, Sit to stand, Long arc quads, Hip flexion, Hip abd/add, Glut set Seated Reps: 15 NuStep Minutes: 15 NuStep Workload: 1 Treatments Pt sitting up in chair upon arrival of PT. Pt completes QCs in room and in gym. Pt amb. in hallway and back to gym to complete NuStep. Pt amb. back to room to rest in chair. All needs met, call light in hand. Assessment Current Status: Good Progress Pt is motivated and pushes herself during tx. PT Short Term Goals Short Term Goals Time Frame: Mar 18, 2022 Roll Left & Right: 4 (SBA) Sit to lyin (SBA) Lying to sitting on side of be: 4 (CGA) Sit to stand: 4 (CGA) Chair/qlg-hc-cqhsy transfer: 4 (SBA) Toilet transfer: 4 (SBA) Car transfer: 4 (SBA) Walk 150 feet: 4 (CGA) 1 step (curb): 4 (CGA) PT Longterm Goals Longterm Goals PT Longterm Goals Time Frame: April 01, 2022 Roll Left & Right (QC): 6 Sit to Lying (QC): 6 Lying-Sitting on Side/Bed(QC): 6 Sit to Stand (QC): 6 Chair/Nhv-km-Isgjv Xfer(QC): 6 Toilet Transfer (QC): 6 Car Transfer (QC): 6 Does the Patient Walk: Yes Walk 10 feet (QC): 6 Walk 50ft with 2 Turns (QC): 6 Walk 150 ft (QC): 6 Walking 10ft on Uneven Surface: 6 1 Step (curb) (QC): 6 4 Steps (QC): 6 12 Steps (QC): 88 Picking up an Object (QC): 6 Wheel 50 feet with 2 turns (QC: 9 Wheel 150 feet: 9 PT Plan Treatment/Plan Treatment Plan: Continue Plan of Care Treatment Plan: Bed Mobility, Education, Functional Activity [place], Functional Strength, Group Therapy, Gait, Safety, Therapeutic Exercise, Transfers Treatment Duration: April 01, 2022 Frequency: At least 5 of 7 days/Wk (IRF) Estimated Hrs Per Day: 1.5 hours per day Patient and/or Family Agrees t: Yes Time/GCodes Time In: 900 Time Out: 1000 Total Billed Treatment Time: 60 Total Billed Treatment 1, FA x2 (35 min) EX x2 (25 min) GLENDA SHEN SHOE REPAIRMAN Mar 17, 2022 09:43
--- NOTE | 2022-03-17 11:01 | Progress Note ---
CAMI MARTIN MED STUDENT 03/17/22 1101: Progress Note Miss Bhakta is doing great this morning. She stated that she is proud of herself for what she has accomplished while in the acute rehab unit. She states that she is much more mobile since the hip fracture repair. Also mentioned that, while she is still using the walker, she is not as dependent on it as she was when first admitted. She is happy with the mobility and strength that she has gained so far. Only having to take pain medication before starting physical therapy, most of the time her pain is very minimal. CHAYITO BOOTH DO 03/17/222047: Supervisory-Addendum Brief Verification & Attestation Participated in pt care: history, MDM, physical Personally performed: exam, history, MDM, supervision of care Care discussed with: Medical Student Procedures: n/a Results interpretation: Verified all documentation Verification and Attestation of Medical Student E/M Service A medical student performed and documented this service in my presence. I reviewed and verified all information documented by the medical student and made modifications to such information, when appropriate. I personally performed the physical exam and medical decision making. Chayito Booth, Mar 17, 2022,20:48 CAMI MARTIN MED STUDENT Mar 17, 2022 11:01 CHAYITO BOOTH DO Mar 17, 2022 20:48
--- NOTE | 2022-03-17 14:01 | Physical Therapy Daily Note ---
PT Daily Note-Current Subjective Pt agrees to PT. Pt states she has pain in her left hip while walking. Pain Numeric Pain Scale: 4 Location: Left Location Body Site: Hip Pain Description: Ache Mental Status Patient Orientation: Person, Place, Time, Situation Transfers SCALE: Activities may be completed with or without assistive devices. 6-Gjxbbugkzl-zkwsctn completes the activity by him/herself with no assistance from a helper. 5-Set-up or Clean-up Assistance-helper sets up or cleans up; patient completes activity. [place] assists only prior to or following the activity. 4-Supervision or Touching Assistance-helper provides verbal cues and/or touching/steadying and/or contact guard assistance as patient completes activity. Assistance may be provided throughout the activity or intermittently. 3-Partial/Moderate Assistance-helper does LESS THAN HALF the effort. [place] lifts, holds or supports trunk or limbs, but provides less than half the effort. 2-Substantial/Maximal Assistance-helper does MORE THAN HALF the effort. [place] lifts or holds trunk or limbs and provides more than half the effort. 0-Qfzfexwws-cwlsnp does ALL the effort. Patient does none of the effort to complete the activity. Or, the assistance of 2 or more helpers is required for the patient to complete the activity. If activity was not attempted, code reason: 7-Patient Refused. 9-Not Applicable-not attempted and the patient did not perform the activity before the current illness, exacerbation or injury. 10-Not Attempted due to Environmental Limitations-(lack of equipment, weather restraints, etc.). 88-Not Attempted due to Medical Conditions or Safety Concerns. Sit to Stand (QC): 6 Toilet Transfer (QC): 6 Weight Bearing Left Lower Extremity: Left Weight Bearing/Tolerated Gait Training Does the Patient Walk?: Yes Distance: 350' x2 Walk 10 feet (QC): 6 Walk 50 ft with 2 Turns(QC): 6 Walk 150 ft (QC): 6 Gait Persons Needed: 0 Gait Assistive Device: FWW Wheelchair Training Does the Pt Use a Wheelchair?: No Exercises Seated Therapy Exercises: Ankle pumps, Sit to stand, Long arc quads, Hip flexion, Hip abd/add, Glut set Seated Reps: 15 Treatments Pt sitting in chair upon arrival of PT. Pt completes seated EX then amb. in [place] with rest breaks as needed. Pt TF to BR then TF back to chair. All needs met, call light in hand. Assessment Current Status: Good Progress Pt is motivated and pushes herself during tx. PT Short Term Goals Short Term Goals Time Frame: Mar 18, 2022 Roll Left & Right: 4 (SBA) Sit to lyin (SBA) Lying to sitting on side of be: 4 (CGA) Sit to stand: 4 (CGA) Chair/ogu-xf-irver transfer: 4 (SBA) Toilet transfer: 4 (SBA) Car transfer: 4 (SBA) Walk 150 feet: 4 (CGA) 1 step (curb): 4 (CGA) PT Production Assembly Operator Goals Production Assembly Operator Goals PT Production Assembly Operator Goals Time Frame: April 01, 2022 Roll Left & Right (QC): 6 Sit to Lying (QC): 6 Lying-Sitting on Side/Bed(QC): 6 Sit to Stand (QC): 6 Chair/Ozp-hx-Bvlyq Xfer(QC): 6 Toilet Transfer (QC): 6 Car Transfer (QC): 6 Does the Patient Walk: Yes Walk 10 feet (QC): 6 Walk 50ft with 2 Turns (QC): 6 Walk 150 ft (QC): 6 Walking 10ft on Uneven Surface: 6 1 Step (curb) (QC): 6 4 Steps (QC): 6 12 Steps (QC): 88 Picking up an Object (QC): 6 Wheel 50 feet with 2 turns (QC: 9 Wheel 150 feet: 9 PT Plan Treatment/Plan Treatment Plan: Continue Plan of Care Treatment Plan: Bed Mobility, Education, Functional Activity Fer[place], Functional Strength, Group Therapy, Gait, Safety, Therapeutic Exercise, Transfers Treatment Duration: April 01, 2022 Frequency: At least 5 of 7 days/Wk (IRF) Estimated Hrs Per Day: 1.5 hours per day Patient and/or Family Agrees t: Yes Time/GCodes Time In: 1300 Time Out: 1330 Total Billed Treatment Time: 30 Total Billed Treatment 1, GT (15 min) EX (15 min) GLENDA SHEN PTA Mar 17, 2022 14:01
[2022-03-17 19:35] VITALS: BP 112/71
[2022-03-17] MEDS: clonazePAM 0.5 MG (KlonoPIN) TAB PO SCH (21:05)
[2022-03-18] MEDS ORDERED: OXYC1TAB87 PO (05:47)
[2022-03-18] MEDS ORDERED: MULT-1137 PO (05:47)
[2022-03-18] MEDS ORDERED: ASPI-1238 PO (05:47)
--- NOTE | 2022-03-18 05:49 | Discharge Summary ---
Diagnosis/Chief Complaint Date of Admission Mar 11, 2022 at 11:00 Date of Discharge Discharge Date: Mar 18, 2022 Discharge Diagnosis Assessment: Status post left hip fracture repair Postop anemia acute blood loss type Insomnia Anxiety Nocturnal hypoxia new dx but overnight study performed on 03/16-03/17 did not indicate this condition Plan: Inpatient rehab protocol Monitor hemoglobin May need iron infusion 03/12/2022: Supportive care Monitor hypoxia 03/13/2022: Supportive care Monitor oxygen at hs 03/14/22: Formal study for night time O2 at [place] DC Thursday03/15/2022: Oxygen supplement at hs 03/16/2022: Nighttime oxygen study tonight Supportive care 03/17/22: DC planned (1) Closed left hip fracture Status: Acute Discharge Summary Discharge Physical Examination Allergies: Coded Allergies: amoxicillin (Verified Allergy, Unknown, HIVES, 02/14/19) Vitals & I&Os Vital Signs Date Time Temp Pulse Resp B/P (MAP) Pulse Ox O2 Delivery O2 Flow Rate FiO2 03/18/22 11:22 36.5 101 18 106/65 93 Room Air 0.00 General Appearance: Alert, Oriented X3, Cooperative Respiratory: Clear to Auscultation Cardiovascular: Regular Rate Neuro: Normal Gait Psych/Mental Status: Mental Status NL Hospital Course Was the Problem List Reviewed?: Yes Hospital course: Patient had an uneventful hospital course after suffering a hip fracture in a fall. Patient was maintained on pain medication and bowel regimen to participate in aggressive therapy in order to regain most of her function with ambulation with the use of walker. Labs remained stable. Patient appeared to have nocturnal hypoxia but at the end of hospital course that formal study was completed and there was no evidence that she required nighttime oxygen. Overall she did very well and had no other concerns at time of discharge. Labs (last 24 hrs) Laboratory Tests 03/11/22 05:52: Iron Level 40 03/12/22 05:45: White Blood Count 8.3, Red Blood Count 3.22L, Hemoglobin 10.1L, Hematocrit 30L, Mean Corpuscular Volume 94, Mean Corpuscular Hemoglobin 31, Mean Corpuscular Hemoglobin Concent 33, Red Cell Distribution Width 13.4, Platelet Count 177, Mean Platelet Volume 10.6, Immature Granulocyte % (Auto) 1, Neutrophils (%) (Auto) 65, Lymphocytes (%) (Auto) 21, Monocytes (%) (Auto) 8, Eosinophils (%) (Auto) 5, Basophils (%) (Auto) 1, Neutrophils # (Auto) 5.4, Lymphocytes # (Auto) 1.8, Monocytes # (Auto) 0.7, Eosinophils # (Auto) 0.4H, Basophils # (Auto) 0.1, Immature Granulocyte # (Auto) 0.0, Sodium Level 141, Potassium Level 3.9, Chloride Level 105, Carbon Dioxide Level 23, Anion Gap 13, Blood Urea Nitrogen 8, Creatinine 0.63, Estimat Glomerular Filtration Rate 94, BUN/Creatinine Ratio 13, Glucose Level 94, Calcium Level 8.7, Corrected Calcium 9.1, Total Bilirubin 1.1H, Aspartate Amino Transf (AST/SGOT) 31, Alanine Aminotransferase (ALT/SGPT) 19, Alkaline Phosphatase 65, Total Protein 5.9L, Albumin 3.5 03/17/22 05:25: White Blood Count 7.9, Red Blood Count 3.17L, Hemoglobin 10.2L, Hematocrit 30L, Mean Corpuscular Volume 96, Mean Corpuscular Hemoglobin 32, Mean Corpuscular Hemoglobin Concent 34, Red Cell Distribution Width 14.1, Platelet Count 312, Mean Platelet Volume 10.6, Immature Granulocyte % (Auto) 2, Neutrophils (%) (Auto) 58, Lymphocytes (%) (Auto) 25, Monocytes (%) (Auto) 9, Eosinophils (%) (Auto) 5, Basophils (%) (Auto) 1, Neutrophils # (Auto) 4.6, Lymphocytes # (Auto) 2.0, Monocytes # (Auto) 0.7, Eosinophils # (Auto) 0.4H, Basophils # (Auto) 0.1, Immature Granulocyte # (Auto) 0.2H, Sodium Level 145, Potassium Level 3.8, Chloride Level 109H, Carbon Dioxide Level 22, Anion Gap 14, Blood Urea Nitrogen 12, Creatinine 0.64, Estimat Glomerular Filtration Rate 94, BUN/Creatinine Ratio 19, Glucose Level 85, Calcium Level 8.8, Corrected Calcium 9.3, Total Bilirubin 0.7, Aspartate Amino Transf (AST/SGOT) 34, Alanine Aminotransferase (ALT/SGPT) 39, Alkaline Phosphatase 86, Total Protein 6.0L, Albumin 3.4 Pending Labs Laboratory Tests 03/11/22 05:52: Iron Level 40 03/12/22 05:45: White Blood Count 8.3, Red Blood Count 3.22, Hemoglobin 10.1, Hematocrit 30, Mean Corpuscular Volume 94, Mean Corpuscular Hemoglobin 31, Mean Corpuscular Hemoglobin Concent 33, Red Cell Distribution Width 13.4, Platelet Count 177, Mean Platelet Volume 10.6, Immature Granulocyte % (Auto) 1, Neutrophils (%) (Auto) 65, Lymphocytes (%) (Auto) 21, Monocytes (%) (Auto) 8, Eosinophils (%) (Auto) 5, Basophils (%) (Auto) 1, Neutrophils # (Auto) 5.4, Lymphocytes # (Auto) 1.8, Monocytes # (Auto) 0.7, Eosinophils # (Auto) 0.4, Basophils # (Auto) 0.1, Immature Granulocyte # (Auto) 0.0, Sodium Level 141, Potassium Level 3.9, Chloride Level 105, Carbon Dioxide Level 23, Anion Gap 13, Blood Urea Nitrogen 8, Creatinine 0.63, Estimat Glomerular Filtration Rate 94, BUN/Creatinine Ratio 13, Glucose Level 94, Calcium Level 8.7, Corrected Calcium 9.1, Total Bilirubin 1.1, Aspartate Amino Transf (AST/SGOT) 31, Alanine Aminotransferase (ALT/SGPT) 19, Alkaline Phosphatase 65, Total Protein 5.9, Albumin 3.5 03/17/22 05:25: White Blood Count 7.9, Red Blood Count 3.17, Hemoglobin 10.2, Hematocrit 30, Mean Corpuscular Volume 96, Mean Corpuscular Hemoglobin 32, Mean Corpuscular Hemoglobin Concent 34, Red Cell Distribution Width 14.1, Platelet Count 312, Mean Platelet Volume 10.6, Immature Granulocyte % (Auto) 2, Neutrophils (%) (Auto) 58, Lymphocytes (%) (Auto) 25, Monocytes (%) (Auto) 9, Eosinophils (%) (Auto) 5, Basophils (%) (Auto) 1, Neutrophils # (Auto) 4.6, Lymphocytes # (Auto) 2.0, Monocytes # (Auto) 0.7, Eosinophils # (Auto) 0.4, Basophils # (Auto) 0.1, Immature Granulocyte # (Auto) 0.2, Sodium Level 145, Potassium Level 3.8, Chloride Level 109, Carbon Dioxide Level 22, Anion Gap 14, Blood Urea Nitrogen 12, Creatinine 0.64, Estimat Glomerular Filtration Rate 94, BUN/Creatinine Ratio 19, Glucose Level 85, Calcium Level 8.8, Corrected Calcium 9.3, Total Bilirubin 0.7, Aspartate Amino Transf (AST/SGOT) 34, Alanine Aminotransferase (ALT/SGPT) 39, Alkaline Phosphatase 86, Total Protein 6.0, Albumin 3.4 Discharge Home Medications: Active Scripts Active Tab-A-Luis Alberto Multivit with Iron (Multivitamin/Iron/Folic Acid) 18 Mg Iron-400 Mcg Tablet 1 Ea PO DAILY@0700 Percocet 5-325 mg Tablet (Oxycodone HCl/Acetaminophen) 1 Each Tablet 1 Tab PO BID PRN Aspirin EC (Aspirin) 81 Mg Tablet.dr 81 Mg PO DAILY Reported Vitamin D3 (Cholecalciferol (Vitamin D3)) 125 Mcg Capsule 125 Mcg PO BID Probiotic (L.acidoph & Paracasei,B.lactis) 1 Each Capsule 1 Each PO DAILY Clonazepam 0.5 Mg Tablet 0.5 Mg PO HS Instructions to patient/family Please see electronic discharge instructions given to patient. Diagnosis/Problems Diagnosis/Problems (1) Closed left hip fracture Status: Acute CHITRA NAIK DO Mar 18, 2022 05:49
--- NOTE | 2022-03-18 05:49 | D/C HH Face to Face Order ---
D/C HH Face to Face Orders Reconcile Patient Problems Problems Reviewed?: Yes Instructions for Patient HH Patient Instructions/FollowUp: PCP 1 week Physician to follow Patient: PCP Discharge Diet for Home: No Restrictions Patient Problems: Hip fracture Patient Data-Allergies,Ht & Wt Patient Allergies: Coded Allergies: amoxicillin (Verified Allergy, Unknown, HIVES, 02/14/19) Height (Feet): 5 Height (Inches): 2.00 Weight (Pounds): 149 Weight (Ounces): 0.0 Home Health Need/Face to Face Date of Face to Face: Mar 18, 2022 Clinical Findings: Muscle weakness, Pain with ambulation, Unsteady gait I have seen Pt unhl-[id number]: Yes Discharged To: Home Diagnosis/Conditions: Hip fracture Patient is Homebound due to: Pain w/ambulation Homebound Status Due to the above stated illness, injury or surgical procedure (medical condition or diagnosis) and associated clinical findings, the patient is homebound because of his/her inability to leave home except with aid of a supportive device and/or person AND leaving the home requires a considerable and taxing effort or is medically contraindicated. Pt req the following assistanc: Walker Home Health Nursing Orders Home Health Services Order: Nursing Services, Electrification Adviser-Evaluate & Treat, Physical Therapy-Evaluate & Treat Certify Stmt I certify that this patient is under my care and that I, a nurse practitioner or a physician; a farm assistant working with me, had a face to face encounter that - meets the physician face to face encounter requirements with this patient as dated. CHITRA NAIK DO Mar 18, 2022 05:49
[2022-03-18] MEDS: MULTIVIT W/MINERALS TAB (THERAGRAN M) PO SCH (06:33)
--- NOTE | 2022-03-18 06:38 | PM&R Progress Note ---
Subjective HPI/CC On Admission Date Seen by Provider: Mar 18, 2022 Time Seen by Provider: 09:30 Subjective/Events-last exam 03/17/22: Patient doing well No pain most of the time DC planned for tomorrow No night time O2 needed after assessing study but I told her we need her to complete sleep study soon 03/16/22: Patient doing really well No pain is reported Walking better No falls 03/15/2022: Patient doing well Discharge Thursday Nocturnal oxygen study will be done Thursday night No concerns at this point 03/14/22: Patient doing well Pain is controlled DC Thursday Nocturnal hypoxia suspected so will perform formal testing prior to DC Updated patient on hypoxia Needs formal sleep study as outpatient 03/13/2022: Patient doing a lot better Low-grade temperature noted Voiding well Hypoxia noted at night so we will monitor that closely Insomnia may certainly be some sort of nocturnal hypoxia or other sleep disorder 03/12/22: Pt is having a better day 2L of oxygen required last night IS ordered Voiding well since catheter removed Checked meds and labs Hemoglobin was 10 Objective Exam Vital Signs Vital Signs Date Time Temp Pulse Resp B/P (MAP) Pulse Ox O2 Delivery O2 Flow Rate FiO2 03/17/22 20:50 Room Air 03/17/22 19:35 37.0 94 20 112/71 (85) 96 03/16/22 19:39 0.00 Capillary Refill : General Appearance: No Apparent Distress, WD/WN, Chronically ill HEENT: PERRL/EOMI, Normal ENT Inspection, Pharynx Normal Neck: Full Range of Motion, Normal Inspection, Non Tender, Supple, Carotid Bruit Respiratory: Chest Non Tender, Lungs Clear, Normal Breath Sounds, No Accessory Muscle Use, No Respiratory Distress Cardiovascular: Regular Rate, Rhythm, No Edema, No Gallop, No JVD, No Murmur, Normal Peripheral Pulses Gastrointestinal: Normal Bowel Sounds, No Organomegaly, No Pulsatile Mass, Non Tender, Soft Back: Normal Inspection, No CVA Tenderness, No Vertebral Tenderness Extremity: Normal Capillary Refill, Normal Inspection, Normal Range of Motion (Except postop leg), Non Tender, No Calf Tenderness, No Pedal Edema Neurologic/Psychiatric: Alert, Oriented x3, No Motor/Sensory Deficits, Normal Mood/Affect, Abnormal Gait, Motor Weakness (Generalized) Skin: Normal Color, Warm/Dry Lymphatic: No Adenopathy Results/Procedures Lab Patient resulted labs reviewed. FIM Transfers Therapy Code Descriptions/Definitions Functional [place] Measure: 0=Not Assessed/NA 4=Minimal Assistance 1=Total Assistance 5=Supervision or Setup 2=Maximal Assistance 6=Modified [place] 3=Moderate Assistance 7=Complete IndependenceSCALE: Activities may be completed with or without assistive devices. 8-Hmmddykzmt-iyntcmw completes the activity by him/herself with no assistance from a helper. 5-Set-up or Clean-up Assistance-helper sets up or cleans up; patient completes activity. [place] assists only prior to or following the activity. 4-Supervision or Touching Assistance-helper provides verbal cues and/or touching/steadying and/or contact guard assistance as patient completes activity. Assistance may be provided throughout the activity or intermittently. 3-Partial/Moderate Assistance-helper does LESS THAN HALF the effort. [place] lifts, holds or supports trunk or limbs, but provides less than half the effort. 2-Substantial/Maximal Assistance-helper does MORE THAN HALF the effort. [place] lifts or holds trunk or limbs and provides more than half the effort. 5-Loazxbuqz-mdrizh does ALL the effort. Patient does none of the effort to complete the activity. Or, the assistance of 2 or more helpers is required for the patient to complete the activity. If activity was not attempted, code reason: 7-Patient Refused. 9-Not Applicable-not attempted and the patient did not perform the activity before the current illness, exacerbation or injury. 10-Not Attempted due to Environmental Limitations-(lack of equipment, weather restraints, etc.). 88-Not Attempted due to Medical Conditions or Safety Concerns. Roll Left to Right (QC): 6 Sit to Lying (QC): 6 Sit to Stand (QC): 6 Chair/Gsu-bl-Pnsjn Xfer(QC): 6 Car Transfer (QC): 6 Gait Training Does the Patient Walk?: Yes Distance: 350' x2 Walk 10 feet (QC): 6 Walk 50 ft with 2 Turns(QC): 6 Walk 150 ft (QC): 6 Walking 10ft/uneven surface-QC: 6 Gait Persons Needed: 0 Gait Assistive Device: FWW Wheelchair Training Does the Pt Use a Wheelchair?: No Wheel 50 ft with 2 turns (QC): 9 Wheel 150 ft (QC): 9 Type of Wheelchair: N/A Stair Training Stair Training: Handrails/: 2 handrails #of Steps: 4 1 Step (curb) (QC): 6 4 Steps (QC): 5 12 Steps (QC): 7 Stairs: Pattern: Step to Balance Picking up an Object (QC): 6 ADL-Treatment Eating (QC): 6 Oral Hygiene (QC): 6 Bathing Location: L Arm, R Arm, L Upper Leg, R Upper Leg, Chest, Abdomen, Buttocks, Perineal Area Shower/Bathe Self (QC): 6 Upper Body Dressing (QC): 6 Lower Body Dressing (QC): 6 On/Off Footwear (QC): 6 Toileting Hygiene (QC): 6 Toilet Transfer (QC): 6 Assessment/Plan Assessment and Plan Assess & Plan/Chief Complaint Assessment: Status post left hip fracture repair Postop anemia acute blood loss type Insomnia Anxiety Nocturnal hypoxia new dx but overnight study performed on 03/16-03/17 did not indicate this condition Plan: Inpatient rehab protocol Monitor hemoglobin May need iron infusion 03/12/2022: Supportive care Monitor hypoxia 03/13/2022: Supportive care Monitor oxygen at hs 03/14/22: Formal study for night time O2 at [place] DC Thursday03/15/2022: Oxygen supplement at hs 03/16/2022: Nighttime oxygen study tonight Supportive care 03/17/22: [place] planned (1) Closed left hip fracture Status: Acute CHITRA NAIK DO Mar 18, 2022 06:38
[2022-03-18 07:23] VITALS: BP 106/65
[2022-03-18] MEDS: ENOXAPARIN 40 MG/0.4 ML (LOVENOX) SYR SC SCH (08:34)
[2022-03-18] MEDS: DOCUSATE SODIUM 100 MG (COLACE) CAP PO SCH (08:34)
[2022-03-18] MEDS: ASPIRIN E.C. 81 MG (ECOTRIN) TAB PO SCH (08:34)
[2022-03-18] MEDS: polyethylene glycoL POWDER 17 GM (MIRALAX) PACK PO SCH (08:34)
[2022-03-18] MEDS: SENNOSIDES 8.6 MG (SENOKOT) TAB PO SCH (08:34)
--- NOTE | 2022-03-18 10:08 | Therapy Team Discharge Summary ---
Therapy Discharge Summary Discharge Recommendations Date of Discharge Physical Therapy Patient came to rehab following a left RAQUEL. Upon evaluation patient performed rolling with CGA, supine to sit min assist, sit to supine CGA, sit <-> stand min assist, transfers CGA, car transfer CGA, ambulated 50' with a rolling walker with CGA (including 50' with at least 2 turns of 90 degrees and 10' over an uneven surface), and picked up an object from the floor using a animal care supervisor with CGA. Patient has been performing bed mobility and transfer training, balance and endurance training, functional strengthening, stair training, gait training, and education. Patient has made good progress and has met all of her tank terminal gauger goals except for stairs. Now, patient performs bed mobility and transfers with independence, car transfer independent, ambulates 300' with a rolling walker with independence (including 50' with at least 2 turns of 90 degrees and 10' over an uneven surface), went up and down 4 steps using 2 handrails with SBA, and picked up an object from the floor with independence using a animal care supervisor. Patient is being discharged from this facility today and will be discharged from PT at this time. Roll Left to Right (QC): 6 Sit to Lying (QC): 6 Lying to Sitting/Side of Bed(Q: 6 Sit to Stand (QC): 6 Chair/Hxd-kn-Wpnqt Xfer(QC): 6 Toilet Transfer (QC): 5 Car Transfer (QC): 6 Does the Patient Walk: Yes Mode of Locomotion: Walk Anticipated Mode of Locomotion: Walk Walk 10 feet (QC): 6 Walk 50 ft with 2 Turns(QC): 6 Walk 150 ft (QC): 6 Walking 10ft on uneven surface: 6 Distance: 30', 15', 50' Gait Assistive Device: FWW Does the Pt Use a Wheelchair: No Wheel 50 ft with 2 turns (QC): 9 Wheel 150 ft (QC): 9 Type of Wheelchair: N/A #of Steps: 4 1 Step (curb) (QC): 6 4 Steps (QC): 5 12 Steps (QC): 7 Balance Sitting Static: Normal Balance Sitting Dynamic: Normal Balance-Standing Static: Good Picking up an Object (QC): 6 Occupational Therapy Impaired Self-Care Skills Eating (QC): 6 Oral Hygiene (QC): 6 Shower/Bathe Self (QC): 6 Upper Body Dressing (QC): 6 Lower Body Dressing (QC): 6 On/Off Footwear (QC): 6 Toileting Hygiene (QC): 6 PT Residential Goals Bonsai Culturist Goals PT Bonsai Culturist Goals Time Frame: April 01, 2022 Roll Left to Right (QC): 6 Sit to Lying (QC): 6 Lying-Sitting on Side/Bed(QC): 6 Sit to Stand (QC): 6 Chair/Etz-at-Nyebp Xfer(QC): 6 Car Transfer (QC): 6 Does the Patient Walk: Yes Walk 10 feet (QC): 6 Walk 10ft-Uneven Surface(QC): 6 Walk 50ft with 2 Turns (QC): 6 Walk 150 ft (QC): 6 Wheel 50 feet with 2 turns (QC: 9 1 Step (curb) (QC): 6 4 Steps (QC): 6 12 Steps (QC): 88 Picking up an Object (QC): 6 OT Residential Goals Bonsai Culturist Goals Time Frame: Mar 22, 2022 Eating (QC): 6 (met) Oral Hygiene (QC): 6 (met) Shower/Bathe Self (QC): 6 (met) Upper Body Dressing (QC): 6 (met) Lower Body Dressing (QC): 6 (met) On/Off Footwear (QC): 6 (met) Toileting Hygiene (QC): 6 (met) Toilet/Commode Transfer (QC): 6 1=Demonstrate adherence to instructed precautions during ADL tasks. 2=Patient will verbalize/demonstrate understanding of assistive devices/modifications for ADL. 3=Patient will improve strength/tolerance for activity to enable patient to perform ADL's. MARTINA PATRICIA PT Mar 18, 2022 10:08
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
[2022-03-18 11:22] VITALS: BP 106/65
== END 2022-03-18 11:27 | disposition home health service (06) | DRG 560 ==
PROVIDERS: ADMIT Internal Medicine; ATTEND Internal Medicine
DX: S72.012D Unspecified intracapsular fracture of left femur, subsequent encounter for closed fracture with routine healing (principal); D62 Acute posthemorrhagic anemia; F41.9 Anxiety disorder, unspecified; G47.00 Insomnia, unspecified; R09.02 Hypoxemia; Z88.1 Allergy status to other antibiotic agents; W19.XXXD Unspecified fall, subsequent encounter
CPT/HCPCS: 36415; 80053; 83540; 85025; 94760